=== PATIENT | female | born 1950 | race Caucasian/White ===

== ENCOUNTER 2017-10-22 17:36 | Inpatient (IN) | payer OTHER ==
[~2017-10-22] VITALS: Ht 157.5 cm; Wt 128.7 kg
--- NOTE | ~2017-10-22 | 2DMMODE ---
[facility] [address] [place] [address] 2 D/M-MODE ECHOCARDIOGRAM Name: SAMIGURDEEP Room #: 212-P [facility] IN M.R.#: [id number] Admission: 10/22/17 Attend Phys: Leonard Ramirez MD Discharge: Date of : 52 Date of Service: 10/23/17 0918 Report #: [id number] THIS REPORT FOR: //name// APPROVED REPORT Study performed: 10/23/2017 08:22:33 EXAM: Comprehensive 2D, Doppler, and color-flow Echocardiogram Patient Location: Echo lab Room #: [facility] Status: routine BSA: 2.22 HR: 70 bpm BP: 134/53 mmHg Rhythm: NSR Other Information Study Quality: Adequate Indications SVT. Hx: Pacemaker, COPD, HTN. 2D Dimensions RVDd: 33.07 mm LVEF(%): 64.43 (>50%) IVSd: 12.38 (7-11mm) LVOT Diam: 19.63 (18-24mm) LVDd: 45.12 mm PWd: 11.07 (7-11mm) LVDs: 29.32 (25-40mm) Aortic Root: 31.93 mm Sawyer's LVEF: 64.43 % Volumes Left Atrial Volume (Systole) Single Plane 4CH: 86.04 mL Single Plane 2CH: 86.51 mL LA ESV Index: 41.00 mL/m2 Aortic Valve AoV Peak Nir.: 1.69 m/s AO Peak Gr.: 11.42 mmHg LVOT Max P.29 mmHg LVOT Max V: 1.04 m/s JEFRY Vmax: 1.85 cm2 Mitral Valve E/A Ratio: 1.9 MV Decel. Time: 184.58 ms [facility] [address] [place] [address] 2 D/M-MODE ECHOCARDIOGRAM Name: GURDEEP GALLARDO Room #: [address] [place] [address] IN .R.#: [id number] Admission: 10/22/17 Attend Phys: Leonard Ramirez MD Discharge: Date of : 52 Date of Service: 10/23/17 0918 Report #: [id number] E Max Nir.: 1.13 m/s MV A Nir.: 0.58 m/s MV PHT: 53.53 ms IVRT: 69.20 ms Pulmonary Vein P Vein S: 0.53 m/s P Vein D: 0.79 m/s P Vein S/D Ratio: 0.67 Tricuspid Valve TR Peak Nir.: 3.11 m/s RAP Estimate: 10.00 mmHg TR Peak Gr.: 38.77 mmHg PA Pressure: 49.00 mmHg Left Ventricle The left ventricle is normal size. Mild basal septal hypertrophy is present. Left ventricular systolic function is normal. LVEF is 55-60%. Right Ventricle The right ventricle is normal size. The right ventricular systolic function is normal. Pacemaker lead is present in the right ventricle. Atria Left atrium is mild to moderately dilated. The right atrium size is normal. Aortic Valve Aortic valve is calcified. No aortic regurgitation is present. There is no aortic valvular stenosis. Mitral Valve Mitral valve leaflets are mildly thickened. Mild mitral annular calcification. Mild mitral regurgitation. Tricuspid Valve The tricuspid valve is normal in structure. Mild tricuspid regurgitation. Estimated PAP is 50mmHg. Pulmonic Valve Pulmonic valve is not well visualized. Great Vessels The aortic root is normal in size. IVC is dilated and collapses >50% with inspiration. [facility] [address] [place] [address] 2 D/M-MODE ECHOCARDIOGRAM Name: GURDEEP GALLARDO ZACHARY Room #: 212-P [facility] IN ..#: [id number] Admission: 10/22/17 Attend Phys: Leonard Ramirez MD Discharge: Date of : 52 Date of Service: 10/23/17 0918 Report #: [id number] Pericardium There is no pericardial effusion. <Conclusion> The left ventricle is normal size. Mild basal septal hypertrophy is present. LVEF is 55-60%. The right ventricle is normal size. Left atrium is mild to moderately dilated. Aortic valve is calcified. There is no aortic valvular stenosis. Mitral valve leaflets are mildly thickened. Mild mitral annular calcification. Mild mitral regurgitation. Mild tricuspid regurgitation. Estimated PAP is 50mmHg. IVC is dilated and collapses >50% with inspiration. There is no pericardial effusion. <ELECTRONICALLY SIGNED> By: Jose G Deleon MD, FACC 10/23/17917 7 7 Jose G Deleon MD, FACC /INF
--- NOTE | ~2017-10-22 | EKG ---
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
--- NOTE | ~2017-10-22 | EKG ---
[address] [place] [address] ELECTROCARDIOGRAM REPORT Name: SAMIGURDEEPPORTER SHARMA Room #: 212-P [facility] IN .R.#: [id number] Admission: 10/22/17 Attend Phys: Leonard Ramirez MD Discharge: Date of : 52 Report #: [id number] THIS REPORT FOR: //name// [facility] Test Date: 2017-10-23 Test Time: 08:25:18 Pat Name: GURDEEP GALLARDO Department: Room: 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 Maker: WESLEY : 1950 Requested By: Denisa Menjivar Order Number: [id number] MD: Omari Bryant Measurements Intervals [place] Rate: 70 P: DE: 200 QRS: 39 QRSD: 104 T: 38 QT: 537 QTc: 580 Interpretive Statements Atrial-paced complexes Borderline T wave abnormalities Prolonged QT interval No previous ECG available for comparison Electronically Signed On 10-23-2017 8:56:10 CDT by Omari Bryant [email or web address] <ELECTRONICALLY SIGNED> By: Omari Bryant MD, [facility] 10/23/17 0856 0825 4 Omari Bryant MD, FACC /EPI
--- NOTE | ~2017-10-22 | HC ---
[facility] [place] [address] CONSULTATION Name: GURDEEP GALLARDO Room #: 212-P ADM IN M.R.#: [id number] Admission: 10/22/17 Attend Phys: Leonard Ramirez MD Discharge: Date of : 52 Report #: [id number] THIS REPORT FOR: //name// CC: XOCHITL physician/PCP Leonard Ramirez DATE OF SERVICE: 10/22/2017 Cardiology Consultation HISTORY OF PRESENT ILLNESS: The patient is a 67-year-old female who moved here from [place] a year ago. She had a pacemaker placed for bradycardia, sick sinus syndrome in 2005. I do not have those records, saw a mems engineer once at [facility] regarding this pacemaker, but does not know the last time she was seen. She cannot live with her son. She is a recovered alcoholic and tobacco user. No tobacco or alcohol for 1 year, but otherwise lifelong alcohol and tobacco for 40 pack years. She came in with some increasing stress and does have some tachycardia, racing heart, dyspnea and shortness of breath. She has underlying COPD, which certainly may be exacerbating. She was found to be in SVT with a rate 170s to 180s according to the ER. I do not see the strips. Responded to adenosine times 2, then 5 of IV Lopressor. Her pulse is currently 70s, appears to be regular. It is not paced at this time. She has apparently been on these medications of ranitidine, Xarelto, which I suspect is for some paroxysmal a-fib, although she is not completely clear why she is on Xarelto, oxybutynin, lisinopril, levothyroxine, and divalproex. PAST MEDICAL HISTORY: Positive for what appears to be hypothyroid with an elevated TSH, hypertension, sick sinus syndrome with what I suspect is underlying atrial dysrhythmia, possibly PAF, although I do not have any of the old records available from [place] or [place], COPD with long history of tobacco and a lifelong alcoholic who is dry now for 1 year. Bradycardia and permanent pacemaker placed in 2005 and generator replaced in 2011. History of gastric bypass. SOCIAL HISTORY: She is single, 3 children in [place], 1 here who she lives with. They are supposedly are helping take care of her. She does not drive. No current alcohol or tobacco. FAMILY HISTORY: Negative for premature coronary disease. ALLERGIES: No known drug allergies. One report from EMS looks to be atrial flutter with a rate of 115 to 120. LABORATORY DATA: Potassium 3.9, creatinine 0.9, GFR 63. Glucose 140. Troponin is negative. H and H are 13 and 38.7, white count 4.4. [facility] [address] [place] [address] CONSULTATION Name: SABAS GALLARDOPORTER SHARMA Room #: 212-P [facility] IN M.R.#: [id number] Admission: 10/22/17 Attend Phys: Leonard Ramirez MD Discharge: Date of : 52 Report #: [id number] IMAGING DATA: Chest x-ray: Small bilateral pleural effusions with some atelectasis. PHYSICAL EXAMINATION: VITAL SIGNS: Pulse is 70s, blood pressure is 118/72. GENERAL: She is in no distress. HEENT: Eyes reveal xanthelasmas. Pharynx is clear. NECK: Shows preserved upstrokes without JVD or bruits. LUNGS: Clear. CARDIAC: Regular rate and rhythm, S1, S2. There is a faint holosystolic murmur at the apex. ABDOMEN: Soft. No HSM or abdominal bruit. EXTREMITIES: Reveal trace of edema, nonpitting. NEUROLOGIC: Nonfocal. SKIN: Warm and dry. There are venous stasis changes noted of lower extremities. MUSCULOSKELETAL: Severe valgus deformity of the knees and a varus deformity of the ankle from a repair. She does not really ambulate without an assistive device. There are no open wounds. ASSESSMENT: 1. Paroxysmal atrial flutter/supraventricular tachycardia, currently in sinus rhythm. 2. History of sick sinus and the permanent pacemaker placed in 2005. 3. Hypertension. 4. Hypothyroidism with elevated TSH. 5. Degenerative joint disease with severe lower extremity valgus deformity. 6. History of gastric bypass. RECOMMENDATIONS AND PLAN: We would on no AV node inhibiting drugs, which is somewhat surprising. We would continue her anticoagulation. I will check an echo Doppler and an EKG in the morning. We will add 50 of p.o. Toprol. Looking for any recurrence of this dysrhythmia on the monitor tonight, if these findings are relatively unremarkable and rate controlled, I would presumably favor discharge prior to the weekend. I have discussed this plan with the patient. She does agree with this. We will follow with you. Thank you for asking me to assist in the care of this patient. By: 2054 0530 Jose G Deleon MD, FACC /nt
--- NOTE | ~2017-10-22 | EKG ---
[address] [place] [address] ELECTROCARDIOGRAM REPORT Name: SAMIGURDEEP ZACHARY Room #: 212- ADM IN M.R.#: [id number] Admission: 10/22/17 Attend Phys: Leonard Ramirez MD Discharge: Date of : 52 Report #: [id number] THIS REPORT FOR: //name// [facility] Test Date: 2017-10-22 Test Time: 21:39:12 Pat Name: GURDEEP GALLARDO Department: Room: 212 Gender: F Pharmacogeneticist: Reji SAUNDERS : 1950 Requested By: Jose G Deleon Order Number: [id number] MD: Omari Bryant Measurements Intervals [place] Rate: 70 P: NC: QRS: 33 QRSD: 95 T: 68 QT: 382 QTc: 413 Interpretive Statements Sinus rhythm with atrial pacing Otherwise normal tracing No previous ECG available for comparison Electronically Signed On 10-23-2017 8:37:56 CDT by Omari Bryant [email or web address] <ELECTRONICALLY SIGNED> By: Omari Bryant MD, [facility] 10/23/17 0837 2139 Omari Bryant MD, FACC /EPI
--- NOTE | ~2017-10-22 | EKG ---
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: [facility] : 1950 Requested By: Drew Brothers Order Number: [id number] MD: Omari Bryant Measurements Intervals [place] Rate: 115 P: MD: QRS: 22 QRSD: 93 T: 153 QT: 289 QTc: 400 Interpretive Statements Atrial flutter with predominant 2:1 AV block Ventricular premature complex Nonspecific repol abnormality, diffuse leads Baseline wander in lead(s) V5 No previous ECG available for comparison Electronically Signed On 10-23-2017 8:32:51 CDT by Omari Bryant [email or web address] <ELECTRONICALLY SIGNED> By: Omari Bryant MD, [facility] 10/23/17 0832 1738 1738 Omari Bryant MD, [facility] /EPI
[2017-10-22 18:02] LABS: ABSOLUTE NEUTROPHILS 2.4 thou/uL (1.4-8.2); BASOPHILS 1.2 % (0.0-2.0); EOSINOPHILS 0.7 % (0.0-3.0); HEMATOCRIT 38.7 % (37.0-47.0); HEMOGLOBIN 13.3 gm/dL (12.0-15.0); LYMPHOCYTES 34.9 % (24.0-44.0); MCH 32.9 pg (26.0-34.0); MCHC 34.3 g/dL (28.0-37.0); MCV 95.8 fL (80.0-100.0); MONOCYTES 9.7 % (1.0-8.0); PLATELET COUNT 171 thou/uL (150-400); POLYS 53.5 % (36.0-66.0); RBC 4.03 mil/uL (4.20-5.00); RDW 14.3 % (10.5-14.5); WBC 4.4 thou/uL (4.0-11.0)
[2017-10-22 18:09] LABS: ANION GAP 10 mmol/L (7-16); BUN 22 mg/dL (7-18); CALCIUM 8.6 mg/dL (8.5-10.1); CHLORIDE 106 mmol/L (98-107); CO2 24 mmol/L (21-32); CREATININE 0.9 mg/dL (0.6-1.0); GLUCOSE 141 mg/dL (74-106); POTASSIUM 3.9 mmol/L (3.5-5.1); SODIUM 140 mmol/L (136-145)
[2017-10-22 18:18] LABS: ALBUMIN 3.3 g/dL (3.4-5.0); SGOT 20 U/L (15-37); SGPT 15 U/L (30-65); TOTAL BILIRUBIN 0.2 mg/dL (<0.1-1.0); TOTAL PROTEIN 7.7 g/dL (6.4-8.2); TROPONIN-I <0.06 ng/mL (<0.06)
[2017-10-22 18:23] LABS: INR 1.1; PROTIME 11.2 Seconds (9.3-11.4)
[2017-10-22] MEDS ORDERED: RANITIDINE (20:07)
[2017-10-22] MEDS ORDERED: XARELTO (20:08)
[2017-10-22] MEDS ORDERED: LISINOPRIL (20:08)
[2017-10-22] MEDS ORDERED: LEVOTHYROXINE (20:08)
[2017-10-22] MEDS ORDERED: OXYBUTININ (20:08)
[2017-10-22] MEDS ORDERED: DIVALPROEX (20:08)
[2017-10-22 20:12] VITALS: BP 132/70
[2017-10-22 20:14] VITALS: BP 132/70
[2017-10-22 20:30] VITALS: BP 125/65
[2017-10-22 20:44] VITALS: BP 125/65
[2017-10-22 23:41] VITALS: BP 130/71
[2017-10-23] VITALS (9 sets, daily range): BP systolic 128–145; BP diastolic 53–85
[2017-10-23 04:56] LABS: CALCIUM 8.1 mg/dL (8.5-10.1); CREATININE 0.7 mg/dL (0.6-1.0); MAGNESIUM 2.2 mg/dL (1.8-2.4); POTASSIUM 3.8 mmol/L (3.5-5.1)
[2017-10-23] MEDS ORDERED: XARELTO20 MG PO (05:57)
[2017-10-23] MEDS ORDERED: DEPAKOTE ER500 MG PO (05:58)
[2017-10-23] MEDS ORDERED: SYNTHROID200 MCG PO (05:59)
[2017-10-23] MEDS ORDERED: FOSAMAX 70 MG T70 MG PO (06:00)
[2017-10-23 06:06] LABS: ABSOLUTE NEUTROPHILS 1.5 thou/uL (1.4-8.2); BASOPHILS 0.8 % (0.0-2.0); EOSINOPHILS 0.8 % (0.0-3.0); HEMATOCRIT 33.8 % (37.0-47.0); HEMOGLOBIN 11.4 gm/dL (12.0-15.0); LYMPHOCYTES 47.2 % (24.0-44.0); MCH 32.9 pg (26.0-34.0); MCHC 33.8 g/dL (28.0-37.0); MCV 97.1 fL (80.0-100.0); MONOCYTES 9.1 % (1.0-8.0); PLATELET COUNT 145 thou/uL (150-400); POLYS 42.1 % (36.0-66.0); RBC 3.48 mil/uL (4.20-5.00); RDW 14.3 % (10.5-14.5); WBC 3.5 thou/uL (4.0-11.0)
[2017-10-23] MEDS ORDERED: METOPROLOL SUCC50 MG PO (13:52)
[2017-10-23] MEDS ORDERED: DEMADEX 2020 MG/1 TA PO (13:52)
== END 2017-10-23 16:02 | disposition home health service (06) | DRG 309 ==
LOC: ER 17:36 → 2N 19:38 → EROBS 19:38 → 2N 20:28 → ENTRNSPT 10-23 15:46 → EDTRNSPTSTS 10-23 15:50 → 2N 10-23 16:02
PROVIDERS: Nurse Practitioner; Physician Assistant
DX: I47.1 Supraventricular tachycardia (principal); Z68.43 Body mass index [BMI] 50.0-59.9, adult; I48.92 Unspecified atrial flutter; I48.91 Unspecified atrial fibrillation; J44.9 Chronic obstructive pulmonary disease, unspecified; E03.9 Hypothyroidism, unspecified; I10 Essential (primary) hypertension; I49.5 Sick sinus syndrome; Z95.0 Presence of cardiac pacemaker; M19.90 Unspecified osteoarthritis, unspecified site; M21.00 Valgus deformity, not elsewhere classified, unspecified site; E87.6 Hypokalemia; E83.42 Hypomagnesemia; F31.9 Bipolar disorder, unspecified; Z79.899 Other long term (current) drug therapy; Z98.84 Bariatric surgery status; E66.9 Obesity, unspecified
CPT/HCPCS: 10081

== ENCOUNTER 2018-09-06 18:44 | Inpatient (IN) | payer OTHER ==
[~2018-09-06] VITALS: Ht 165.1 cm; Wt 122.5 kg
[~2018-09-06 18:44] MED LIST: DEMADEX 2020 MG/1 TA PO; DEPAKOTE ER500 MG PO; DIVALPROEX; FOSAMAX 70 MG T70 MG PO; LEVOTHYROXINE; LISINOPRIL; METOPROLOL SUCC50 MG PO; OXYBUTININ; RANITIDINE; SYNTHROID200 MCG PO; XARELTO; XARELTO20 MG PO
[2018-09-06 18:48] VITALS: BP 106/58
[2018-09-06 19:10] LABS: HEMATOCRIT 47.9 % (37.0-47.0); HEMOGLOBIN 15.3 gm/dL (12.0-15.0); MCH 32.9 pg (26.0-34.0); MCV 102.8 fL (80.0-100.0); PLATELET COUNT 116 thou/uL (150-400); RBC 4.65 mil/uL (4.20-5.00); RDW 18.2 % (10.5-14.5); WBC 4.2 thou/uL (4.0-11.0)
[2018-09-06] MEDS ORDERED: XARELTO20 MG PO (19:15)
[2018-09-06] MEDS ORDERED: CALCIUM MAGNES1 EAC2 PO (19:16)
[2018-09-06 19:17] LABS: CALCIUM 8.7 mg/dL (8.5-10.1); CREATININE 1.6 mg/dL (0.6-1.0); POTASSIUM 4.9 mmol/L (3.5-5.1)
[2018-09-06] MEDS ORDERED: MULTIPLE VITAM1 EAC2 PO (19:17)
[2018-09-06] MEDS ORDERED: DEPAKOTE ER250 MG PO (19:19)
[2018-09-06] MEDS ORDERED: LOPRESSOR50 PO (19:20)
[2018-09-06] MEDS ORDERED: LISINOPRIL10 MG PO (19:22)
[2018-09-06] MEDS ORDERED: OXYBUTYNIN 5 MG5 M2 PO (19:23)
[2018-09-06] MEDS ORDERED: LASIX 20 MG TAB20 MG PO ×2 (19:25→19:26)
[2018-09-06] MEDS ORDERED: ZANTAC 150MG T150 MG PO (19:25)
[2018-09-06 19:26] LABS: TROPONIN-I 0.13 ng/mL (<0.06)
[2018-09-06] MEDS ORDERED: DEMADEX20 MG PO (19:26)
[2018-09-06] MEDS ORDERED: FLONASE 0.05%50 MCG NASAL (19:27)
[2018-09-06 19:35] LABS: BE(vivo) -3.8 mmol/L (-2 to +3); HCO3 27.5 mmol/L (22.0-26.0); sO2 97.9 % (92.0-98.0)
[2018-09-06 19:36] LABS: pH 7.144 (7.360-7.450)
[2018-09-06 19:43] LABS: ABSOLUTE NEUTROPHILS 2.9 thou/uL (1.4-8.2); NUCLEATED RBCS 1 /100WBC
[2018-09-06 19:44] LABS: ANISOCYTOSIS 1+; MACROCYTES 1+; POLYCHROMASIA OCCASIONAL
[2018-09-06 21:50] LABS: BE(vivo) -1.3 mmol/L (-2 to +3); PO2 72.3 mmHg (80.0-100.0); sO2 91.3 % (92.0-98.0)
[2018-09-06 21:50] LABS: ICTOTEST (BILI CONFIRMATORY) Negative (Negative); URINE BILIRUBIN NEGATIVE (Negative); URINE BLOOD 1+ (Negative); URINE CLARITY CLEAR; URINE COLOR YELLOW; URINE GLUCOSE-RANDOM* NEGATIVE (Negative); URINE KETONES TRACE (Negative); URINE LEUKOCYTES-REFLEX TRACE (Negative); URINE NITRITE-REFLEX POSITIVE (Negative); URINE PROTEIN (DIPSTICK) 2+ (Negative); URINE SPECIFIC GRAVITY >= 1.030 (1.005-1.035)
[2018-09-06 21:51] LABS: PCO2 67.5 mmHg (35.0-45.0); pH 7.236 (7.360-7.450)
[2018-09-06 22:00] LABS: BACTERIA-REFLEX >30 Many /HPF (None Seen); HYALINE CASTS 4-10 Moderate /LPF (None Seen); MUCUS 0-3 Light strn/LPF (None Seen); SQUAMOUS 0-3 Few /LPF (0-3); URINE RBC 3-10 Few /HPF (0-2); URINE WBC-REFLEX 0-5 Rare /HPF (0-5)
[2018-09-07 01:46] LABS: BE(vivo) 0.5 mmol/L (-2 to +3); HCO3 30.2 mmol/L (22.0-26.0); PO2 101.9 mmHg (80.0-100.0); sO2 96.4 % (92.0-98.0)
[2018-09-07 01:47] LABS: PCO2 73.5 mmHg (35.0-45.0); pH 7.232 (7.360-7.450)
[2018-09-07 04:55] LABS: HEMATOCRIT 45.1 % (37.0-47.0); HEMOGLOBIN 14.3 gm/dL (12.0-15.0); MCH 32.3 pg (26.0-34.0); MCHC 31.6 g/dL (28.0-37.0); MCV 102.3 fL (80.0-100.0); RBC 4.41 mil/uL (4.20-5.00); RDW 17.7 % (10.5-14.5); WBC 3.8 thou/uL (4.0-11.0)
[2018-09-07 05:11] LABS: CALCIUM 8.1 mg/dL (8.5-10.1); CREATININE 1.2 mg/dL (0.6-1.0); POTASSIUM 5.1 mmol/L (3.5-5.1)
--- NOTE | 2018-09-07 07:39 | EKG ---
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 ��������������������������������������������� <ELECTRONICALLY SIGNED> ���������������������������������������� By: Omari Bryant MD, [facility] ��������������������������������������������� 09/07/18 0739 185 55 Omari Bryant MD, [facility] /EPI
--- NOTE | 2018-09-07 09:44 | NUR ---
IV team contacted for central line placement at this time. Consent form signed and witnessed.
[2018-09-07 10:47] VITALS: BP 98/62
[2018-09-07 11:34] VITALS: BP 112/65
[2018-09-07 12:10] VITALS: BP 116/65
--- NOTE | 2018-09-07 13:21 | NUR ---
VASCULAR ACCESS CONSULTED FOR PICC LINE PLACEMENT ORDER VERIFIED AND TIMEOUT COMPLETED AT BEDSIDE. LABS,MEDS,HX OBTAINED. 1% LIDOCAINE ADMINISTERED RIGHT BRACHIAL VEIN CANNULATED WITH ONE STICK. 5FR TL PICC LINE TRIMMED TO 39CM. 2CM EXTERNAL. LINE PLACED WITH U.S GUIDANCE AND UNDER STERILE CONDITIONS. CXR OBTAINED SHOWING LINE UP RIGHT JUGULAR. ATTEMPTED RE-POSITION WITH NO RESOLUTION. PATIENT WAS IN THE PROCESS OF BEING TRANSFERED FROM THE ER TO CCU. PATIENT SEEN AGAIN IN CCU FOR OVER THE WIRE EXCHANGE. 4FR DL PICC PLACED WITH OVER THE WIRE TECHNIQUE AND STERILE CONDITIONS. LINE TRIMMED TO 39CM WITH 0CM EXTERNAL. CXR READ OUT SHOWS LINE AT THE CAJ. LINE RELEASED FOR USE TO SANJANA DIAMOND
[2018-09-07 17:42] LABS: FOLIC ACID 19.5 ng/mL (8.6-58.9)
[2018-09-07 18:08] VITALS: BP 91/67
--- NOTE | 2018-09-07 18:48 | NUR ---
PATIENT ARRIVED FROM ED VIA STRECHER, ALERT AND ORIENTED TO SELF AND SITUATION. CONFUSED TO TIME AND PLACE. BIPAP INPLACE, ADMISION IS DONE AND NEW CARRE PLAN INITIATED AND WILL CONTINUE TO MONITOR PATIENT CLOSELY.
[2018-09-07 19:37] VITALS: BP 96/63
[2018-09-07 23:54] VITALS: BP 99/59
[2018-09-08 04:53] LABS: ALBUMIN 2.6 g/dL (3.4-5.0); CALCIUM 7.8 mg/dL (8.5-10.1); CREATININE 1.2 mg/dL (0.6-1.0); MAGNESIUM 1.9 mg/dL (1.8-2.4); TOTAL BILIRUBIN 0.9 mg/dL (<0.1-1.0); TOTAL PROTEIN 6.2 g/dL (6.4-8.2)
[2018-09-08 04:57] VITALS: BP 98/71
[2018-09-08 04:58] LABS: POTASSIUM 4.9 mmol/L (3.5-5.1)
[2018-09-08 05:12] LABS: HEMATOCRIT 39.4 % (37.0-47.0); HEMOGLOBIN 12.9 gm/dL (12.0-15.0); MCH 32.6 pg (26.0-34.0); MCHC 32.6 g/dL (28.0-37.0); MCV 99.8 fL (80.0-100.0); PLATELET COUNT 94 thou/uL (150-400); RBC 3.95 mil/uL (4.20-5.00); RDW 16.8 % (10.5-14.5); WBC 2.8 thou/uL (4.0-11.0)
--- NOTE | 2018-09-08 06:00 | NUR ---
A/O X 3.DENIES PAIN.Q2 TURNS.ON BIPAP.SPO2 WNL.ON AMIODARONE GTT PER ORDER.PULMONARY CALLED TO ANSWERING SERVIE.NO RESPIRATORY DISTRESS NOTED.MONITOR SHOWS AFIB.LILLIAN TO DD.WILL MONITOR AND CONTINUE POC.
[2018-09-08 08:03] VITALS: BP 95/56
[2018-09-08 08:06] LABS: ABSOLUTE NEUTROPHILS 2.4 thou/uL (1.4-8.2); ANISOCYTOSIS 1+
--- NOTE | 2018-09-08 08:39 | EKG ---
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 : 1950 Requested By: Jazmin Bustos Order Number: [id number] MD: Omari Bryant Measurements Intervals [place] Rate: 119 P: MD: QRS: 21 QRSD: 69 T: QT: 379 QTc: 534 Interpretive Statements Atrial fibrillation Low voltage Nonspecific ST and T wave abnormality Prolonged QT interval Compared to ECG 09/06/2018 18:56:29 Heart rate has slowed Electronically Signed On 09-08-2018 8:39:23 CDT by Omari Bryant [email or web address] ��������������������������������������������� <ELECTRONICALLY SIGNED> ���������������������������������������� By: Omari Bryant MD, [facility] ��������������������������������������������� 09/08/1839 7 7 Omari Bryant MD, [facility] /EPI
[2018-09-08 10:41] LABS: BE(vivo) 3.8 mmol/L (-2 to +3); HCO3 30.4 mmol/L (22.0-26.0); PCO2 54.1 mmHg (35.0-45.0); PO2 72.3 mmHg (80.0-100.0); pH 7.367 (7.360-7.450); sO2 93.8 % (92.0-98.0)
[2018-09-08 12:51] VITALS: BP 99/64
--- NOTE | 2018-09-08 13:22 | 2DMMODE ---
[facility] [place] [address] 2 D/M-MODE ECHOCARDIOGRAM Name: GURDEEP GALLARDO Room #: 219-P ADM IN M.R.#: [id number] ������������� Admission: 09/06/18 ������������� Attend Phys: Ozzie Nguyen, Discharge: ��� ������������� ��� Date of : 52 Date of Service: 09/08/18 1321 �� Report #: [id number] �������� ��������������������������������������������[id number] THIS REPORT FOR: //name// APPROVED REPORT Study performed: 09/08/2018 11:22:33 EXAM: Comprehensive 2D, Doppler, and color-flow Echocardiogram Patient Location: Bedside Room #: 219 Status: routine BSA: 2.25 BP: 116/65 mmHg Rhythm: Atrial Fibrillation Other Information Study Quality: Good Indications Dyspnea Hx: PPM, Afib, COPD, HTN. 2D Dimensions RVDd: 42.60 mm IVSd: 9.13 (7-11mm) LVOT Diam: 20.92 (18-24mm) LVDd: 43.90 mm PWd: 9.20 (7-11mm) Ascending Ao: 34.30 (22-36mm) LVDs: 28.53 (25-40mm) Aortic Root: 33.46 mm Volumes Left Atrial Volume (Systole) Single Plane 4CH: 73.21 mL Single Plane 2CH: 67.51 mL Aortic Valve AoV Peak Nir.: 1.72 m/s AO Peak Gr.: 12.98 mmHg LVOT Max P.97 mmHg LVOT Max V: 0.86 m/s JEFRY Vmax: 1.72 cm2 Mitral Valve MV Decel. Time: 126.44 ms MV E Max Nir.: 1.06 m/s [facility] [address] [place] [address] 2 D/M-MODE ECHOCARDIOGRAM Name: GURDEEP GALLARDOHERINE Room #: 219-[facility] IN [facility]#: [id number] ������������� Admission: 09/06/18 ������������� Attend Phys: Ozzie Nguyen, Discharge: ��� ������������� ��� Date of : 52 Date of Service: 09/08/18 1321 �� Report #: [id number] �������� ��������������������������������������������[id number] Pulmonary Valve PV Peak Nir.: 0.78 m/s PV Peak Gr.: 2.59 mmHg Tricuspid Valve TR Peak Nir.: 3.10 m/s RAP Estimate: 15.00 mmHg TR Peak Gr.: 39.00 mmHg Left Ventricle The left ventricle is normal size. There is normal LV segmental wall motion. There is normal left ventricular wall thickness. Left ventricular systolic function is normal. LVEF is 55-60%. This study is not technically sufficient to allow evaluation of the LV diastolic function due to atrial fibrillation. Right Ventricle Right ventricle is mildly dilated. The right ventricular systolic function is normal. Atria Left atrium is moderately dilated. Right atrium is moderately dilated. Aortic Valve Aortic valve is moderately calcified. No aortic regurgitation is present. There is mild valvular aortic stenosis. Calculated aortic valve area is 1.7 cm2 with maximum pressure gradient of 12 mmHg. Mitral Valve The mitral valve is normal in structure. Mild mitral annular calcification. Mild mitral regurgitation. No evidence of mitral valve stenosis. Tricuspid Valve The tricuspid valve is normal in structure. Mild to moderate tricuspid regurgitation. Estimated PAP of 50-55mmHg. Pulmonic Valve Pulmonic valve is not well visualized. There is no pulmonic valvular regurgitation. Great Vessels The aortic root is normal in size. The ascending aorta is normal in size. IVC is dilated and collapses <50% with inspiration. [facility] [address] [place] [address] 2 D/M-MODE ECHOCARDIOGRAM Name: SAMIGURDEEPPORTER SHARMA Room #: 219-P [facility] IN .R.#: [id number] ������������� Admission: 09/06/18 ������������� Attend Phys: Ozzie Nguyen, Discharge: ��� ������������� ��� Date of : 52 Date of Service: 09/08/18 1321 �� Report #: [id number] �������� ��������������������������������������������[id number] Pericardium Trivial to small anterior pericardial effusion. <Conclusion> The left ventricle is normal size. LVEF is 55-60%. Right ventricle is mildly dilated. Left atrium is moderately dilated. Right atrium is moderately dilated. Aortic valve is moderately calcified. There is mild valvular aortic stenosis. Calculated aortic valve area is 1.7 cm2 with maximum pressure gradient of 12 mmHg. The mitral valve is normal in structure. Mild mitral annular calcification. Mild mitral regurgitation. The tricuspid valve is normal in structure. Mild to moderate tricuspid regurgitation. Estimated PAP of 50-55mmHg. Trivial to small anterior pericardial effusion. ��������������������������������������������� <ELECTRONICALLY SIGNED> ���������������������������������������� By: Grant Perez MD ��������������������������������������������� 09/08/181320 20 20 Grant Perez MD /INF
--- NOTE | 2018-09-08 14:33 | NUR ---
met with patient and sp with son. Patient resides in independent home with son, dtr in law, 11, 8 year old children. Patient reports at home she is able get out of bed and use walker to her lift chair but it takes her time to complete. She has no home oxygen or cpap/bipap machine. She uses a nebulizer 4x a day. She is alone at times in home. She reports her son works 12 hour shifts and very busy. She believes they need more help at home. She rec HH from [facility] in past but she reports they stopped after a week. Patient reports she has a lift chair at home and BSC. She uses briefs. Son reports his car is too little for patient and she has needed to take an ambulance to [place] bolden. Son does not know who patients PCP. He reports when she has tried to go to [place] with his car it takes her such a long time to walk to car she urinates herself and then does not want to go to apt. Son is agreeable to rehab for his mother if needed. Therapy evals in process.
[2018-09-08 20:55] VITALS: BP 108/62
[2018-09-09 04:58] VITALS: BP 110/60
--- NOTE | 2018-09-09 05:25 | NUR ---
ASSUMED PT CARE AT 1900 WITH NO SIGN OF DISTRESS NOTED. PT IS ALERT AND ORIENTED WITH NO SIGN OF DISTRESS NOTED IN PT. ASSESSMENT COMPLETED AND CHARTED. SCHEDULED MEDS ADMINISTERED TO PT AND PT TOLERATED PO INTAKE. PT IS STABLE. DENIES ANY FURTHER NEEDS AT THIS TIME
[2018-09-09 06:07] LABS: HEMATOCRIT 38.1 % (37.0-47.0); HEMOGLOBIN 12.6 gm/dL (12.0-15.0); MCH 32.7 pg (26.0-34.0); MCHC 33.1 g/dL (28.0-37.0); MCV 98.8 fL (80.0-100.0); RBC 3.85 mil/uL (4.20-5.00); RDW 17.1 % (10.5-14.5); WBC 3.5 thou/uL (4.0-11.0)
[2018-09-09 06:15] LABS: CALCIUM 8.1 mg/dL (8.5-10.1); POTASSIUM 4.4 mmol/L (3.5-5.1)
[2018-09-09 08:05] VITALS: BP 106/71
[2018-09-09 11:00] VITALS: BP 113/72
--- NOTE | 2018-09-09 15:39 | NUR ---
Dc planning visit made with pt at bedside and her son via phone. The pt is interested in SNF and she is familiar with this from a snf stay in [place] several years ago. She would like to have a referral sent to [facility] as it is close to their home. Pt's spouse is agreeable and would like her as close to the home as possible. The pt is motivated and wants to get stronger. She would like to improve her transfers and gait within the home and make it easier to get out of the house to appts. She needs to establish a pcp and is interested in the sr clinic. [facility] of [facility] contacted. They will have a snf bed available tomorrow if the pt is ready. Dc buyer planner to fax the referral for their reveiw. Pt will need to continue weaning off o2. Will followup with all parties tomorrow and arrange for dc to snf as indicated.
[2018-09-09 16:00] VITALS: BP 91/67
--- NOTE | 2018-09-09 16:08 | NUR ---
FAXED REFERRAL TO [facility] SPOKE WITH GWEN SHE RECEIVED REFERRAL AND WILL REVIEW. ANTICIPATE DC TOMORROW 09/10. DCP TO FOLLOW.
--- NOTE | 2018-09-09 16:44 | NUR ---
ASSESSMENT CHARTED - MEDS PER MAR - NO CO'S OF PAIN OR NASUEA - KAELYN DIET AND FLUIDS. PT SEEN BY PHYS AND OCC THERAPY THIS SHIFT. PT INCONTINENT OF LARGE LIQUID STOOL THIS AM. - STATED SHE FEELS IT IS THE ANTIBIOTICS THAT ARE CAUSING HER TO STOOL. PT UP IN CHAIR FOR A SHAORT AMOUNT OF TIME. NO CO'S AT THE PRESENT TIME.
[2018-09-09 19:00] VITALS: BP 109/68
--- NOTE | 2018-09-09 19:44 | HC ---
[facility] [place] [address] CONSULTATION Name: GURDEEP GALLARDO Room #: 219-P ADM IN M.R.#: [id number] Admission: 09/06/18 ������������������ Attend Phys: Ozzie Nguyen DO Discharge: ������������������ Date of : 52 Report #: [id number] THIS REPORT FOR: //name// CC: [facility] physician/PCP Ozzie Nguyen PULMONARY CONSULTATION REFERRAL PHYSICIAN: Ozzie Nguyen DO. REASON FOR REFERRAL: Respiratory failure. HISTORY OF PRESENT ILLNESS: The patient is a 68-year-old white female who presents to the ED with complaints of weakness. She was found to be hypoxic. A Pulmonary consultation was requested. The patient is a fair historian. She has had trouble with memory loss. According to records, she has a history of atrial fibrillation; sick sinus syndrome, status post permanent pacemaker placement; hypertension; hypothyroidism and gastroesophageal reflux disease. She also has a history of COPD. Overnight, she has been placed on BiPAP. She is much improved today. She denies any dyspnea, chest pain or productive cough. CT chest angiogram showed no evidence of pulmonary embolus, with patchy bilateral linear infiltrates that were seen in both bases. The patient, otherwise, denies any fever, night sweats or chills, as mentioned above. PAST MEDICAL HISTORY: As mentioned above, including history of bipolar disorder; hypothyroidism; sick sinus syndrome, status post permanent pacemaker placement and atrial fibrillation along with history of chronic obstructive pulmonary disease. PAST SURGICAL HISTORY: Include right hip surgery, left foot surgery, tonsillectomy, surgery for lazy right eye, herniorrhaphy, gastric sleeve surgery and bilateral tubal ligation. ALLERGIES: None to medications. MEDICATIONS: Home medications are reviewed. This include Synthroid 200 mcg once a day, Xarelto 20 mg once a day, multivitamins, Depakote ER 1000 mg p.o. at bedtime, Lopressor 50 mg p.o. b.i.d., Zestril 10 mg p.o. every day, Zantac 150 mg once a day, Lasix 20 mg once a day, torsemide 20 mg once a day and fluticasone nasal spray 2 puffs once a day. [facility] [address] [place] [address] CONSULTATION Name: GURDEEP GALLARDO Room #: 219-P [facility] IN [facility].#: [id number] Admission: 09/06/18 ������������������ Attend Phys: Ozzie Nguyen DO Discharge: ������������������ Date of : 51 Report #: [id number] FAMILY HISTORY: Noncontributory. SOCIAL HISTORY: She had smoked cigarettes in the past, but quit more than a year ago. She denies any alcohol use. REVIEW OF SYSTEMS: As mentioned above. Otherwise, 10-point system review is negative. PHYSICAL EXAMINATION: GENERAL: On examination, she is awake, alert, appears mildly dyspneic, in no distress. VITAL SIGNS: Temperature is 98.2 degrees Fahrenheit, pulse is 110, respiratory rate is 20, blood pressure 99/64 mmHg and saturation is 92%. HEENT: Normocephalic, atraumatic. NECK: Supple, without any lymphadenopathy or thyromegaly. CHEST: Breath sounds are fair, with mild expiratory wheezes. No rales. CARDIOVASCULAR: Normal S1, S2. There is no JVD. There is no carotid bruit. Pulses are 2+/4+ bilaterally. ABDOMEN: Soft, nontender. No organomegaly or masses felt. GENITOURINARY: Deferred. RECTAL: Deferred. EXTREMITIES: There is no edema, cyanosis or clubbing. LABORATORY DATA: Chest x-ray shows bibasilar linear band-like opacities seen in the right upper lobe, mild right-sided pleural effusion and mild increase in interstitial markings. BNP 7800. Lactic acid is 4.3. D-dimer is 3.8. Valproic acid level is 28. Troponin is 0.13. EKG shows atrial fibrillation with rapid ventricular response and poor R-wave progression. TSH 11.0. CT chest angiogram showed no evidence of pulmonary embolus. Bibasilar lower lobe infiltrates are noted, suggestive of atelectasis, possible infiltrates and small bilateral pleural effusions. Procalcitonin level is normal. Echocardiogram showed ejection fraction of 55%, with a mildly dilated right ventricle. Pulmonary artery pressure measuring 50 mmHg. Initial arterial blood gas revealed pH of 7.14, pCO2 of 82 and pO2 of 140 on supplemental O2. WBC 4200, hemoglobin is normal and platelets are normal. Albumin is 2.0. IMPRESSION: 1. Pohub-nh-mrgvhdr hypercapnic hypoxic respiratory failure in this 68-year-old white female. She has a history of chronic obstructive pulmonary disease along with bipolar disorder. Her BMI is 45. Chest x-ray shows atelectasis, possible infiltrates. She complains of weakness. Suspect underlying chronic obstructive pulmonary disease with possible sleep-related breathing disorder. Pneumonia cannot be ruled out. 2. History of chronic obstructive pulmonary disease, severity unknown. 3. Apparent history of chronic weakness, etiology undetermined. [facility] [address] [place] [address] CONSULTATION Name: GURDEEP GALLARDO Room #: 219-P [facility] IN M.R.#: [id number] Admission: 09/06/18 ������������������ Attend Phys: Ozzie Nguyen, DO Discharge: ������������������ Date of : 51 Report #: [id number] 4. Atrial fibrillation with rapid ventricular response per Cardiology. 5. History of sick sinus syndrome, status post permanent pacemaker placement. 6. Rvpaw-rk-vcauzcr heart failure. 7. Possible pneumonia. 8. Hypertension. 9. Hypothyroidism. Elevated TSH. 10. History of gastric bypass surgery. 11. Remote history of tobacco use. RECOMMENDATIONS AND DISCUSSION: I agree with noninvasive ventilation, bronchodilators and corticosteroids along with broad-spectrum antibiotics. Wean O2 for saturation 90%. DVT and GI prophylaxis recommended. The patient will benefit from outpatient followup regarding possible sleep disorder. Thank you for this consultation. ��������������������������������������������� <ELECTRONICALLY SIGNED> ���������������������������������������� By: Raffy Escobar MD ��������������������������������������������� 09/09/18 1944 1719 2317 Raffy Escobar MD /nt
--- NOTE | 2018-09-10 04:08 | NUR ---
ASSESSMENT DOCUMENTED.PT BEEN RESTING IN NO ACUTE DISTRESS.A/OX4.VSS.AFIB ON MONITOR.INCONTINENT OF BLADDER.PERICARE GIVEN.BIPAP AT HS.PT DENIES PAIN OR ANY DISCOMFORT.POC IS TO CONT WITH ABT WITH POSSIBLE DISCHARGE TO SKILLED FACILITY.
[2018-09-10 04:12] VITALS: BP 97/59
[2018-09-10 05:09] LABS: POTASSIUM 4.7 mmol/L (3.5-5.1)
[2018-09-10 07:30] VITALS: BP 113/54
[2018-09-10 11:24] VITALS: BP 115/73
[2018-09-10] MEDS ORDERED: DIGOXIN125 MCG PO (12:11)
[2018-09-10] MEDS ORDERED: CARDIZEM CD 18180 M3 PO (12:11)
[2018-09-10] MEDS ORDERED: METOPROLOL SUCC50 MG PO (12:11)
--- NOTE | 2018-09-10 12:40 | NUR ---
Pt accepted for SNF stay at [facility]. Medically cleared for dc today. Pt, son and the care team updated. 3pm w/c van with o2 setup per the snf. Chart copy and 124c are ready to be sent with the pt. Nursing to call report. All parties updated.
--- NOTE | 2018-09-10 13:59 | NUR ---
PT DISCHARGING TODAY TO [facility] FAXED DC ORDERS/SUMMARY TO FACILITY SPOKE WITH GWEN IN ADM SHE RECEIVED DC ORDERS AND ARRANGED TRANSPORT VIA WC VAN FOR 1500 TODAY. FAMILY NOTIFIED BY TANVI. UNIT NOTIFIED AND CHART COPY PER US. RN TO CALL REPORT TO [phone].
--- NOTE | 2018-09-10 15:25 | NUR ---
ASSESSMENT DOCUMENTED. PT ALERT AND ORIENTED. DENIED HAVNING PAIN OR DISCOMFORT. VSS. SEEN BY DR. TRONCOSO. ORDERS GIVEN TO DISCHARGE PT TO [facility]. REPORT CALLED IN TO SNF. PICC LINE DISCONTINUED.
== END 2018-09-10 15:43 | DRG 871 ==
LOC: ER 18:44 → EROBS 22:00 → 2N 22:00
PROVIDERS: Emergency Medicine; Nurse Practitioner Acute Care; Nurse Practitioner Adult Health; Nurse Practitioner Family; Nurse Practitioner Gerontology; ADMIT Internal Medicine Geriatric Medicine
DX: A41.9 Sepsis, unspecified organism (principal); J18.9 Pneumonia, unspecified organism; J96.21 Acute and chronic respiratory failure with hypoxia; J96.22 Acute and chronic respiratory failure with hypercapnia; N17.9 Acute kidney failure, unspecified; N39.0 Urinary tract infection, site not specified; J44.1 Chronic obstructive pulmonary disease with (acute) exacerbation; J44.0 Chronic obstructive pulmonary disease with (acute) lower respiratory infection; F31.9 Bipolar disorder, unspecified; E03.9 Hypothyroidism, unspecified; K21.9 Gastro-esophageal reflux disease without esophagitis; I49.5 Sick sinus syndrome; I50.9 Heart failure, unspecified; I11.0 Hypertensive heart disease with heart failure; M19.90 Unspecified osteoarthritis, unspecified site; F12.90 Cannabis use, unspecified, uncomplicated; I95.9 Hypotension, unspecified; D69.6 Thrombocytopenia, unspecified; I48.2 Chronic atrial fibrillation; Z79.01 Long term (current) use of anticoagulants; Z95.0 Presence of cardiac pacemaker; Z87.891 Personal history of nicotine dependence; Z79.899 Other long term (current) drug therapy
CPT/HCPCS: 10081; 27000

== ENCOUNTER 2018-11-23 17:27 | Inpatient (IN) | payer OTHER ==
[~2018-11-23] VITALS: Ht 152.4 cm; Wt 99.9 kg
[~2018-11-23 17:27] MED LIST changes: +CALCIUM MAGNES1 EAC2 PO; +CARDIZEM CD 18180 M3 PO; +DEMADEX20 MG PO; +DEPAKOTE ER250 MG PO; +DIGOXIN125 MCG PO; +FLONASE 0.05%50 MCG NASAL; +LASIX 20 MG TAB20 MG PO; +LISINOPRIL10 MG PO; +LOPRESSOR50 PO; +MULTIPLE VITAM1 EAC2 PO; +OXYBUTYNIN 5 MG5 M2 PO; +ZANTAC 150MG T150 MG PO
[2018-11-23 17:28] VITALS: BP 97/51
[2018-11-23 17:56] LABS: HEMATOCRIT 34.8 % (37.0-47.0); HEMOGLOBIN 11.6 gm/dL (12.0-15.0); MCH 33.7 pg (26.0-34.0); MCHC 33.3 g/dL (28.0-37.0); MCV 101.2 fL (80.0-100.0); PLATELET COUNT 170 thou/uL (150-400); RBC 3.44 mil/uL (4.20-5.00); RDW 14.1 % (10.5-14.5); WBC 5.3 thou/uL (4.0-11.0)
[2018-11-23 18:00] LABS: ANION GAP 3 mmol/L (7-16); BUN 27 mg/dL (7-18); CALCIUM 8.6 mg/dL (8.5-10.1); CHLORIDE 98 mmol/L (98-107); CO2 39 mmol/L (21-32); CREATININE 0.8 mg/dL (0.6-1.0); GLUCOSE 138 mg/dL (74-106); POTASSIUM 4.2 mmol/L (3.5-5.1); SODIUM 140 mmol/L (136-145)
[2018-11-23 18:10] LABS: ALBUMIN 2.7 g/dL (3.4-5.0); SGOT 37 U/L (15-37); SGPT 14 U/L (30-65); TOTAL BILIRUBIN 0.5 mg/dL (<0.1-1.0); TOTAL PROTEIN 7.6 g/dL (6.4-8.2); TROPONIN-I <0.06 ng/mL (<0.06)
[2018-11-23 18:14] LABS: ABSOLUTE NEUTROPHILS 3.7 thou/uL (1.4-8.2); ANISOCYTOSIS 1+; MACROCYTES 1+; POLYCHROMASIA OCCASIONAL
[2018-11-23 18:17] LABS: URINE BILIRUBIN NEGATIVE (Negative); URINE BLOOD TRACE (Negative); URINE CLARITY SL CLOUDY; URINE COLOR YELLOW; URINE GLUCOSE-RANDOM* NEGATIVE (Negative); URINE KETONES NEGATIVE (Negative); URINE LEUKOCYTES 3+ (Negative); URINE NITRITE NEGATIVE (Negative); URINE PROTEIN (DIPSTICK) TRACE (Negative)
[2018-11-23 18:26] LABS: CASTS None Seen /LPF (None Seen); CRYSTALS None Seen /LPF (None Seen); SQUAMOUS 0-3 Few /LPF (0-3); URINE WBC >25 Many /HPF (0-5)
[2018-11-23 18:27] LABS: URINE RBC 0-2 Rare /HPF (0-2)
[2018-11-23 20:25] LABS: BE(vivo) 11.6 mmol/L (-2 to +3); HCO3 37.9 mmol/L (22.0-26.0); PCO2 59.1 mmHg (35.0-45.0); PO2 105.1 mmHg (80.0-100.0); pH 7.425 (7.360-7.450); sO2 97.8 % (92.0-98.0)
[2018-11-23 22:26] VITALS: BP 92/44
[2018-11-23 22:32] VITALS: BP 96/54
[2018-11-23 23:48] VITALS: BP 99/43
[2018-11-24] VITALS (10 sets, daily range): BP systolic 85–126; BP diastolic 45–73
--- NOTE | 2018-11-24 04:57 | NUR ---
PT. ARRIVED AT FLOOR AROUND 2240; AOX4; ABLE TO WALK FROM STRECHER TO BED; ST. AMBULATING WITH WALKER; NO C/O PAIN; NO SOB; ADMISSION PERFORMED; O2 AT 3L; ST. USING O2 AT HOME; HR ON THE 130-140s; ONCOLOGY RN NOTIFIED; ORDER RECEIVED; SBP ON THE 90s; ST. REGULAR SBP ON THE 90s; AT 0200 BP TAKEN SBP ON THE 80s; CARDIZEM DECREASE; ONCOLOGY RN NOTIFIED; ORDERS RECEIVED; MONITORING HR & BP; NO C/O DIZZINES; NO C/O CP; ASSESSMENT CHARGED; FOLLOWING POC;
[2018-11-24 06:44] LABS: CHOLESTEROL 117 mg/dL (<200); HDL CHOLESTEROL 31 mg/dL (>40); LDL CHOLESTEROL 60 mg/dL (<100); TC:HDL 3.8 Ratio (Not establshd); TRIGLYCERIDE 130 mg/dL (<150); VLDL 26 mg/dL (<40)
[2018-11-24 06:46] LABS: SERUM ASSESSMENT Clear
[2018-11-24 07:00] LABS: DIGOXIN 0.4 ng/mL (0.9-2.0)
--- NOTE | 2018-11-24 08:35 | EKG ---
[place] [address] 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 Hand: dm : 1950 Requested By: Yogesh Marcano Order Number: [id number] MD: Omari Bryant Measurements Intervals [place] Rate: 141 P: NM: QRS: 29 QRSD: 62 T: QT: 337 QTc: 516 Interpretive Statements Atrial fibrillation Nonspecific ST and T wave abnormality Low voltage Prolonged QT interval Compared to ECG 09/08/2018 08:18:05 No significant change was found Electronically Signed On 11-24-2018 8:35:24 CDT by Omari Bryant [email or web address] ��������������������������������������������� <ELECTRONICALLY SIGNED> ���������������������������������������� By: Omari Bryant MD, [facility] ��������������������������������������������� 11/24/18 0835 1825 1825 Omari Bryant MD, [facility] /EPI
--- NOTE | 2018-11-24 11:10 | NUR ---
Nutrition: pt admitted with SOB, afib and seen due to high risk screen for poor intake/weight loss. Pt reports her appetite has been down x 2 days but is now eating 100% of meals. Recent weights stable but much higher weights reported this summer. pt states her weight loss was fluid related. Noted lasix is currently being held due to volume depletion. Hx medication noncompliance. Pt agreed for RD to leave heart healthy diet materials for her and son to review. Pt lives with son and she reports they bring fast foods home frequently. RD available for further education as requested. Consider low risk
--- NOTE | 2018-11-24 15:50 | NUR ---
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 HE WORKS EVENINGS AND ABLE TO ASSIST DURING THE DAY. SHE HAS HOME OXYGEN VIA [facility] AT 3-4 LITERS. SHE HAS WALKER AT HOME THAT SHE USES ALL THE TIME. ALL NEEDS ON ONE LEVEL IN HOME. PATIENT HAS VISITING PHYS TO THE HOME DR SMITH. AMALIA HAS BRENDAN JEWELRY APPRAISER RN, RT,OT AND RESPITORY. PATIENT PLANS HOME AT THIS TIME AND NOT POST ACUTE CARE. UPDATED BRENDAN CARE.
--- NOTE | 2018-11-24 16:36 | NUR ---
ASSESSMENT CHARTED - MEDS PER MAY - KAELYN DIET AND FLUIDS WITH NO CO'S OF NAUSEA. NO REQUESTS FOR PAIN MEDICATION THIS SHIFT - PT GIVEN DIGOXIN ORDERED AND CARDIZEM D/C'D. PT UP TO THE RESTROOM - DOES BECME SOB WITH EXERTION AND HEART RATE ELEVATES DOES COME BACK DOWN ONCE PATIENT SETTLED. SAEEN BY PHYS AND OCC THERAPY THIS SHIFT. NO CO'S AT THE PRESENT TIME APPEARS TO BE RESTING COMFORTABLY.
--- NOTE | 2018-11-24 16:44 | NUR ---
FAXED CLINICAL UPDATE TO [facility] RECEIVED CONFIRMATION. DCP TO FOLLOW.
--- NOTE | 2018-11-24 17:07 | NUR ---
PT IS CURRENT WITH [facility] FAXED CLINICAL UPDATE RECEIVED CONFIRMATION. DCP TO FOLLOW.
[2018-11-25 03:06] VITALS: BP 135/85
--- NOTE | 2018-11-25 05:04 | NUR ---
RECEIVED PT'S CARE AT 1900; PT. ON BED; AOX4; HR 100-110s; DURING ASSESSMENT NO C/O PAIN; NO C/O SOB; LUNGS SOUNDS AT THE BOTTOM CRACKLES; READING ASSISTANT NOTIFIED; ORDERS RECEIVED; NS RATE DECREASED TO 75 ML/H; PT. ST. WANTS TO REST; AROUND 2300 PT'S HR BETWEEN 100-120s; NO MANTAIN; NO C/O PALPITATIONS; AROUND 0200 PT'S HR INCREASING TO 130s; AT 0330 PT'S HR INCREASING UP TO 140s; REMAINED MOSLTY ON THE 120s; PHYSICIAN NOTIFIED; ORDERS RECEIVED; MONITORING; SBP ABOVE 100 AT 0330; CHECK CHARTING; MONITORING; ASSESSMENT CHARGED; FOLLOWING POC; WILL PASS ON REPORT.
[2018-11-25 07:24] VITALS: BP 105/51
[2018-11-25 12:10] VITALS: BP 117/57
[2018-11-25 12:51] LABS: TSH 0.597 uIU/mL (0.358-3.740)
[2018-11-25 17:20] VITALS: BP 126/48
--- NOTE | 2018-11-25 18:02 | NUR ---
SNF recommended at dc. Discussed with the pt at bedside. She is agreeable and would like to go to [facility]. Message left for admissions liason. Will fax referral in the am. Pt getting diuresed today and amnio load. Will follow.
[2018-11-25 20:21] VITALS: BP 138/67
[2018-11-25 23:36] VITALS: BP 115/52
--- NOTE | 2018-11-26 04:10 | NUR ---
PATIENT ALERT AND ORIENTED X4, NO COMPLAINTS OF PAIN. A-FIB ON LASER SPECIALIST, IV AMIODARONE INFUSING FOR CONTROL. ON 4L NASAL CANNULA, DYSPNEA WITH INCREASED ACTIVITY. TOLERATING DIET. UP WITH STANDBY ASSISTANCE TO BEDSIDE COMMODE. NO SIGNS OF ACUT DISTRESS NOTED AT THIS TIME. WILL CONTINUE TO MONITOR.
[2018-11-26 05:28] VITALS: BP 142/71
[2018-11-26 05:42] LABS: CREATININE 0.5 mg/dL (0.6-1.0); POTASSIUM 3.7 mmol/L (3.5-5.1)
[2018-11-26 05:45] LABS: HEMATOCRIT 31.3 % (37.0-47.0); MCH 33.8 pg (26.0-34.0); MCV 105.7 fL (80.0-100.0); RBC 2.96 mil/uL (4.20-5.00); RDW 14.3 % (10.5-14.5); WBC 5.4 thou/uL (4.0-11.0)
[2018-11-26 08:00] VITALS: BP 115/48
[2018-11-26 12:00] VITALS: BP 117/46
--- NOTE | 2018-11-26 12:08 | NUR ---
FAXED REFERRAL TO [facility] SPOKE WITH GWEN IN ADM SHE RECEIVED REFERRAL AND CAN ACCEPT PT AT DISCHARGE. DCP TO FOLLOW.
[2018-11-26 16:00] VITALS: BP 135/64
--- NOTE | 2018-11-26 17:14 | NUR ---
[facility] can accept the pt. no weekend dc anticipated. will update them on Thursday. pt has used 45 snf day and has 53 remaining.
--- NOTE | 2018-11-26 18:58 | NUR ---
ASSUMED CARE AT 0700, SHIFT ASSESSMENT DONE, MEDS GIVEN, VSS. DENIES ANY PAIN, NAUSEA,
[2018-11-26 20:00] VITALS: BP 134/62
[2018-11-26 22:21] VITALS: BP 113/57
[2018-11-27 04:45] VITALS: BP 91/67
--- NOTE | 2018-11-27 06:12 | NUR ---
A/O X 4.DENIES PAIN.SOB WITH ACTIVITY.ON O2 4-6 L NASAL CANNULA.TRANSFERRED FROM ROOM 200 TO 213.AFTER MIDNIGHT PATIENT DESATS IN THE 60% ON 6L.PLACED ON NON REBREATHER.BREATHING TREATMENT GIVEN PER RT.DISCONTINUED IV FLUIDS DUE TO PATIENT CLAIMED THAT SHE HAS HISTORY OF CHF.LASIX IV WAS GIVEN.EXTERNAL SNYDER CATH WAS PLACED.MONITOR SHOWS AFIB WITH RVR.AMIODARONE GTT CONTINUED.PATIENT IS BACK TO 6L NASAL CANNULA.WILL MONITOR AND CONTINUE POC.
[2018-11-27 08:00] VITALS: BP 123/66
[2018-11-27 12:00] VITALS: BP 104/59
[2018-11-27 16:00] VITALS: BP 106/61
--- NOTE | 2018-11-27 18:02 | NUR ---
VSS REMAINS AFIB WITH VR 95-120. LUNGS WITH FINE CRACKLES AND WHEEZES AT TIMES. O2 SAT 4L 93-94%, O2 SAT ON 4L AT 1600 WAS 88% INCREASED O2 TO 5L WITH SUBSEQUENT SATS 91-92%. PT HAVING BLOOD TINGED SPUTUM. WILL WATCH. PT DIEURESING WELL WITH FEMALE EXTERNAL CATH AND VOID UNMEASURED PLUS 500CC. UP TO BSC WITH ASSIST AND TOLERATING WELL TODAY, WITH NO HILTON OR DESATING WILL CONTINUE TO MONITER AND CARE FOR PTPER PLAN OF CARE
--- NOTE | 2018-11-27 19:46 | NUR ---
VASCULAR ACCESS CALLED DUE TO AMIODORONE INFUSING OVER 24HR.RIGHT ARM RED AMIO D/C PT'S LABS,MEDS,HISTORY, ORDER AND CONSENT VERIFIED. DISCUSSED BENEFITS AND RISK OF PICC WITH PT,VERBALIZED UNDERSTANDING. SHAHRZAD BASILIC WAS WIDELY PATENT WITH USG, 4FR DL POWER PICC TRIMMED TO 43CM INSERTED TO 1CM EXTERNAL PER HOSPITAL P&P. PT TOLERATED WELL. GAUZE APPLIED DUE TO BLEEDING AT INSERTION SITE. STAT CXR ORDERED.
--- NOTE | 2018-11-27 20:10 | NUR ---
CXR CONFIRMED PICC AT [facility], RELEASED FOR IMMEDIATE USE PER PROTOCOL TO SANJANA
[2018-11-27 20:26] VITALS: BP 123/72
[2018-11-27 20:56] LABS: URINE BILIRUBIN NEGATIVE (Negative); URINE BLOOD 1+ (Negative); URINE CLARITY CLEAR; URINE COLOR YELLOW; URINE GLUCOSE-RANDOM* NEGATIVE (Negative); URINE KETONES NEGATIVE (Negative); URINE LEUKOCYTES NEGATIVE (Negative); URINE NITRITE NEGATIVE (Negative); URINE PROTEIN (DIPSTICK) NEGATIVE (Negative); URINE SPECIFIC GRAVITY <= 1.005 (1.005-1.035)
[2018-11-27 21:18] LABS: BACTERIA 1-9 Few /HPF (None Seen); CASTS None Seen /LPF (None Seen); CRYSTALS None Seen /LPF (None Seen); MUCUS None Seen strn/LPF (None Seen); SQUAMOUS 0-3 Few /LPF (0-3); URINE RBC 3-10 Few /HPF (0-2); URINE WBC None Seen /HPF (0-5)
--- NOTE | 2018-11-28 03:20 | NUR ---
ASSUMED PT CARE AT 1900. PT A/OX4, VITAL SIGNS STABLE, ASSESSMENT CHARTED. NO COMPLAINTS OF PAIN. PT SOA WITH ACTIVITY TO THE BEDSIDE COMMODE, HOWEVER RECOVERS ONCE SETTLED IN BED. ON 5L 02 THROUGH THE NIGHT. SPONGE BATH GIVEN BEFORE BED. PT RESTED WELL THROUGH THE NIGHT. FALL PRECAUTIONS IN PLACE, FREQUENT CHECKS. PROGRESSING TOWARD PLAN OF CARE. WILL CONTINUE TO MONITOR.
[2018-11-28 04:04] LABS: ABSOLUTE NEUTROPHILS 3.5 thou/uL (1.4-8.2); EOSINOPHILS 0.7 % (0.0-3.0); HEMATOCRIT 30.3 % (37.0-47.0); HEMOGLOBIN 9.8 gm/dL (12.0-15.0); LYMPHOCYTES 12.5 % (24.0-44.0); MCHC 32.5 g/dL (28.0-37.0); MCV 104.7 fL (80.0-100.0); MONOCYTES 9.3 % (1.0-8.0); PLATELET COUNT 193 thou/uL (150-400); POLYS 76.5 % (36.0-66.0); RBC 2.89 mil/uL (4.20-5.00); RDW 13.7 % (10.5-14.5); WBC 4.6 thou/uL (4.0-11.0)
[2018-11-28 04:13] LABS: ALBUMIN 2.2 g/dL (3.4-5.0); CALCIUM 8.5 mg/dL (8.5-10.1); CREATININE 0.5 mg/dL (0.6-1.0); MAGNESIUM 1.9 mg/dL (1.8-2.4); POTASSIUM 3.8 mmol/L (3.5-5.1); TOTAL BILIRUBIN 0.4 mg/dL (<0.1-1.0); TOTAL PROTEIN 6.9 g/dL (6.4-8.2)
[2018-11-28 04:45] VITALS: BP 130/85
[2018-11-28 07:26] VITALS: BP 139/84
[2018-11-28 11:33] VITALS: BP 110/59
--- NOTE | 2018-11-28 14:13 | NUR ---
VSS REMAINS AFIB WITH VR 100-115 REMAINS ON IV AMIODARONE GTT AT .5 MCG/MIN. LUNGS WITH FINE CRACKLES AND WHEEZES, O2 SAT 4L IS 93%, PT DOES DESAT TO HIGH 80'S WHEN UP TO BSC, BUT RECOVERS BACK TO LOW 90'S QUICKLY. PT HAVING BLOOD TINGED SPUTUM. MD AWARE, PT DOES GET HILTON WITH AVTIVITY TO BSC. WILL CONTINUE TO MONITER AND CARE FOR PTPER PLAN OF CARE
[2018-11-28 16:14] VITALS: BP 116/62
[2018-11-28 20:13] VITALS: BP 98/50
[2018-11-29 03:11] VITALS: BP 158/89
[2018-11-29 05:01] LABS: ABSOLUTE NEUTROPHILS 3.8 thou/uL (1.4-8.2); BASOPHILS 0.9 % (0.0-2.0); EOSINOPHILS 1.5 % (0.0-3.0); HEMATOCRIT 28.9 % (37.0-47.0); HEMOGLOBIN 9.4 gm/dL (12.0-15.0); LYMPHOCYTES 8.8 % (24.0-44.0); MCHC 32.6 g/dL (28.0-37.0); MCV 104.3 fL (80.0-100.0); MONOCYTES 9.1 % (1.0-8.0); PLATELET COUNT 225 thou/uL (150-400); POLYS 79.7 % (36.0-66.0); RBC 2.77 mil/uL (4.20-5.00); RDW 13.6 % (10.5-14.5); WBC 4.8 thou/uL (4.0-11.0)
[2018-11-29 05:13] LABS: ANION GAP < 0 mmol/L (7-16); BUN 9 mg/dL (7-18); CALCIUM 8.4 mg/dL (8.5-10.1); CHLORIDE 102 mmol/L (98-107); CO2 43 mmol/L (21-32); CREATININE 0.5 mg/dL (0.6-1.0); GLUCOSE 183 mg/dL (74-106); MAGNESIUM 1.8 mg/dL (1.8-2.4); PHOSPHORUS 3.8 mg/dL (2.5-4.9); POTASSIUM 3.3 mmol/L (3.5-5.1); SGOT 12 U/L (15-37); SGPT 7 U/L (30-65); SODIUM 142 mmol/L (136-145); TOTAL BILIRUBIN 0.3 mg/dL (<0.1-1.0); TOTAL PROTEIN 6.3 g/dL (6.4-8.2)
--- NOTE | 2018-11-29 06:11 | NUR ---
PATIENT HAD BEEN NPO AFTER MIDNIGHT FOR A POSSIBLE CARDIOVERSION TODAY.PATIENT HAS EPISODE OF DESATTING IN THE 40% WHEN UP TO THE BEDSIDE COMMODE.BREATHING TREATMENT WAS GIVEN BY RT.CURRENTLY ON 02 PER NASAL CANNULA PLUS VENTIMASK AT 4L.ON AMIODARONE GTT.VANC TROUGH IS 16 THIS MORNING,NO CHANGES ON THE DOSE AND IT WAS INFUSED.MONITOR SHOWS AFIB WITH RVR.WILL CONTINUE POC.
--- NOTE | 2018-11-29 07:44 | HC ---
[facility] [place] [address] [place] [address] CONSULTATION Name: GURDEEP GALLARDO Room #: 213-P ADM IN M.R.#: [id number] Admission: 11/23/18 ������������������ Attend Phys: Val Dumont Discharge: ������������������ Date of : 51 Report #: [id number] THIS REPORT FOR: //name// CC: [facility] physician/PCP Val Dumont DATE OF SERVICE: 11/28/2018 INFECTIOUS DISEASE CONSULTATION ATTENDING PHYSICIAN: Dr. Dumont. REASON FOR EVALUATION: Septicemia with conflicting blood cultures. HISTORY OF PRESENT ILLNESS: Chart reviewed, patient examined. This is a 68-year-old woman with fairly extensive medical history, does have O2 requiring COPD and anxiety, who was admitted through the Emergency Room with complaints of burning with urination and frequency. The symptoms began 3 days prior. Does have ongoing issue with dyspnea. She noted lower extremity edema as well. It is not clear that she had fevers or chills at that time. On initial evaluation, blood cultures were collected, 1/2 which had growth of gram-positive cocci. Urine was collected a day later. Repeat cultures, however, on the 11/26/2018 now with 1/2 growing gram-negative [place]. She did have a chest x-ray which showed cardiomegaly without failure, though she had improved from the previous exam. CT of the chest showed some atelectasis. There is no evidence of pulmonary embolus. She does admit to cough. She states it is occasionally productive of bloody sputum, depressed appetite, so empirically started on ceftriaxone with more recently switched to vancomycin, piperacillin and tazobactam. She has not been febrile. At this point, she is quite anxious. ALLERGIES: None known. MEDICATIONS: Currently include furosemide, vancomycin, Zosyn, alteplase, ipratropium and albuterol inhaler, amiodarone, rivaroxaban, divalproex, multivitamin. PAST MEDICAL HISTORY: Hypertension; COPD, O2 requiring; hypothyroidism; has a pacemaker. SOCIAL HISTORY: Former smoker. No significant alcohol, previous history of illicit drug use. FAMILY HISTORY: Noncontributory. REVIEW OF SYSTEMS: Also noted above. Does admit to some GI related distress, poor appetite. [facility] [address] [place] [address] CONSULTATION Name: GURDEEP GALLARDO Room #: [address] [place] [address] IN .R.#: [id number] Admission: 11/23/18 ������������������ Attend Phys: Val Dumont Discharge: ������������������ Date of : 52 Report #: [id number] PHYSICAL EXAMINATION: GENERAL: She is quite anxious, mildly encephalopathic, appears chronically ill, undernourished. VITAL SIGNS: Temperature 97.5, pulse 105, respirations 22, blood pressure 130/85, saturation is 93%. SKIN: She has actually several tattoos, otherwise warm and dry. HEENT: Normocephalic. Extraocular muscles intact. NECK: Supple. LUNGS: Scattered crackles at the bases. Diminished overall. HEART: Borderline tachycardic, appears regular. I do not appreciate a murmur. ABDOMEN: Mildly distended, soft, nontender. GENITOURINARY AND RECTAL: Deferred. EXTREMITIES: Distal lower extremities without significant edema. LABORATORY DATA: Lactic acid 0.5. Electrolytes: Sodium 141, potassium 3.8, chloride 100, bicarbonate is 41, anion gap of 0. BUN and creatinine 11 and 0.5, glucose of 171. LFTs unremarkable. Albumin 2.2, total protein of 6.9. Estimated GFR 123. CBC: White count of 4.6, H and H 9.8 and 30.3, platelets of 193, MCV elevated at 104.7. Chest x-ray has multifocal bilateral pulmonary airspace disease suggesting pneumonitis, small effusion. Blood cultures, various stages of growth. Initial ones from the 11/23/2018, has Gram-positive cocci; from the 11/26/2018, 03/24 gram-negative [place]. ASSESSMENT: Septicemia. I suspect the initial blood cultures likely represent a contaminant of false positive; however, the gram-negative [place] is likely real and I suspect urinary tract at source. There was delay apparently collecting the urine. We will continue combination therapy. It is difficult to ascertain based on her underlying chronic obstructive pulmonary disease if indeed has an early pneumonitis as well. We will try to collect sputum from her given the possibility of hemoptysis, check urinary antigen for Legionella and pneumococcus. She remains quite tenuous at this point. Increase activity as allowed, optimize her nutritional status, monitor expectantly. ��������������������������������������������� <ELECTRONICALLY SIGNED> ���������������������������������������� By: Willian Paredes MD ��������������������������������������������� 11/29/18 0744 0615 2138 Willian Paredes MD /nt
[2018-11-29 08:45] VITALS: BP 107/65
[2018-11-29 12:40] VITALS: BP 113/81
--- NOTE | 2018-11-29 14:02 | NUR ---
FAXED CLINICAL UPDATE TO [facility] SPOKE WITH GWEN IN ADM SHE RECEIVED UPDATE. DCP TO FOLLOW.
--- NOTE | 2018-11-29 15:02 | NUR ---
VSS REMAINS AFIB WITH VR 100-120, BP STABLE, LUNGS REMAINS WITH FINE CRACKLES AND WHEEZES AT TIMES. PT ON 5L O2 AND SATING 91-94%, PT DOES DESAT WHEN UP TO BSC TO 80-88%, SHE RECOVERS QUIKLY TO 92%, SHE USES 40% VENTI MASK TO RECOVER MORE EASILY. DIEURESING WELL WITH IV LASIX. WILL CONTINUE TO MONITER AND CARE FOR PT PER PLAN OF CARE
[2018-11-29 15:12] VITALS: BP 123/71
[2018-11-29 19:20] VITALS: BP 101/68
[2018-11-30 02:42] VITALS: BP 116/62
[2018-11-30 07:25] VITALS: BP 129/83
[2018-11-30 11:30] VITALS: BP 101/56
--- NOTE | 2018-11-30 14:06 | NUR ---
Followup: CHF, htn, bacteremia. Eating 75-100% of meals. Class III extreme obesity, BMI 43. Requires diuresis. Diet materials have been provided this admission for pt/family. Continue heart healthy diet restriction. Low nutrition risk
[2018-11-30 16:10] VITALS: BP 112/55
--- NOTE | 2018-11-30 18:00 | NUR ---
ASSESSMENT CHARTED. PT ALERT AND ORIENTED. VSS. INCONTINENT OF BLADDER. CONTACT ISOLATION IMPLEMENTED. IV ABX GIVEN ORDERED. WILL CONTINUE TO MONITOR.
[2018-11-30 19:47] VITALS: BP 105/65
[2018-12-01] VITALS (7 sets, daily range): BP systolic 105–120; BP diastolic 58–73
--- NOTE | 2018-12-01 02:19 | NUR ---
ASSUMED CARE OF PATIENT AT 1900. VSS, AFEBRILE. DENIES PAIN OR N/V. IS CONCERNED SHE IS NEEDING MORE O2. UP TO BSC TO VOID. LESS SOA THAN PREVIOUSLY NOTED. APPETITE GOOD AND ORAL INTAKE. CALLS APPROPRIATELY. PROGRESSING WELL TOWARDS POC GOALS.
[2018-12-01 09:14] LABS: BUN 24 mg/dL (7-18); CALCIUM 8.5 mg/dL (8.5-10.1); CHLORIDE 97 mmol/L (98-107); CREATININE 0.8 mg/dL (0.6-1.0); GLUCOSE 286 mg/dL (74-106); POTASSIUM 4.3 mmol/L (3.5-5.1); SODIUM 142 mmol/L (136-145)
[2018-12-01 09:19] LABS: CO2 > 45 mmol/L (21-32)
--- NOTE | 2018-12-01 12:28 | NUR ---
Patient strongly wants to return home rather than skilled at [facility]. She plans to work with therapy today to determine home with HH [facility] or skilled.
--- NOTE | 2018-12-01 15:05 | NUR ---
ASSESSMENT CHARTED. PT ALERT AND ORIENTED. PLEASANT AND COOPERTAIVE WITH CARES. CONTACT ISOLATION ENFORCED. RT TREATMENT PROVIDED ORDERTED. SOB NOTED WITH ACTIVITY. NO CONCERNS AT THIS TIME. PROGRESSING WELL TOWARD DISCHARGE GOAL. WILL CONTINUE TO MONITOR.
--- NOTE | 2018-12-01 16:31 | NUR ---
FAXED REFERRAL TO [facility] SPOKE WITH INTAKE LIASON AND THE RECEIVED REFERRALL AND CAN ACCEPT. ANTICIPATE DC TOMORROW. DCP TO FOLLOW.
--- NOTE | 2018-12-01 17:14 | NUR ---
Assumed care approx. 1630 this afternoon. Patient is a transfer from CCU. Patient is in no distress. VSS. All belongings with patient. Room is in proper isolation. Tele strip assessed-pt remains in Afib. Patient on 5LNC with O2 sat of 97%. Patient hopeful for discharge early tomorrow. Will continue to monitor.
[2018-12-02 03:58] VITALS: BP 11/63; BP 111/63
--- NOTE | 2018-12-02 06:41 | NUR ---
SLEPT MOST OF SHIFT. PLANS FOR DISCHARGE TODAY. UP WITH STANDBY ASSIST. MAINTAIN SAFE ENVIRONMENT. WORKING ON GOAlS AND PLAN OF CARE FOR NOC. PROGRESSING TOWARDS DISCHARGE GOALS SLOWLY. DENIES COMPLAINTS OF PAIN AT THIS TIME. SOME SHORTNESS OF AIR WITH ACITIVITY. ON 5L NC PER HOME. CONTINUE TO ASSES.
[2018-12-02 07:22] VITALS: BP 110/66
[2018-12-02] MEDS ORDERED: LEVAQUIN 500 M500 M1 PO (10:02)
[2018-12-02] MEDS ORDERED: PACERONE 200 M200 M1 PO (10:03)
[2018-12-02] MEDS ORDERED: CARDIZEM CD240 MG PO (10:03)
[2018-12-02] MEDS ORDERED: DEMADEX20 MG PO (10:03)
[2018-12-02] MEDS ORDERED: PULMICORT0.5 MG/21 INH (10:04)
[2018-12-02] MEDS ORDERED: PREDNISONE 10 M10 MG PO (10:05)
--- NOTE | 2018-12-02 10:28 | NUR ---
DISCHARGE ORDERS COMPLETED. PATIENT DISCHARGING TO HOME WITH [facility]. DISCHARGE/HOME HEALTH ORDERS AND DISCHARGE SUMMARY FAXED TO [facility]. CALL PLACED TO [facility], SPOKE WITH KALI. KALI TO FACILITATE PATIENTS HH NEEDS.
--- NOTE | 2018-12-02 10:30 | NUR ---
DISCHARGE NOTE: TANVI reviewed chart and spoke with nursing and attending physician. Pt was transferred to from and is medically stable for discharge home today. Orders written for HH. digital media planner faxed discharge orders/summary to [facility]. TANVI met with pt at bedside to discuss discharge plan. Pt is agreeable with plan. Pt states her son would be able to pick her up later this evening. Pt agreeable with w/c van transportation home if Case Mgmt dept is able to coordinate. TANVI contacted Director of Case Mgmt. Awaiting input at this time. Pt will need portable O2 for transportation home. TANVI is following to finalize discharge.
[2018-12-02 11:22] VITALS: BP 122/61
[2018-12-02 14:15] VITALS: BP 105/59
[2018-12-02 14:56] VITALS: BP 105/59
--- NOTE | 2018-12-02 15:02 | NUR ---
Assumed care approx. 0700 this AM. Discharge orders obtained. Tele removed and PICC line dc'd. Patient on 3LNC before discharge and tolerating well. Patient taken by scheduled wheelchair van back to home. Discharge packet, prescriptions and script information given to patient. All questions answered. All belongings with patient. Patient left unit at approx. 1451 with transporter.
== END 2018-12-02 15:52 | disposition home health service (06) | DRG 871 ==
LOC: ER 17:27 → 3W 21:15 → EROBS 21:15 → 2N 21:15 → 3W 12-01 16:16
PROVIDERS: Emergency Medicine; Hospitalist; Internal Medicine; Internal Medicine Geriatric Medicine; Nurse Practitioner Acute Care; Nurse Practitioner Adult Health; ADMIT Hospitalist
PROC: 02HV33Z Insertion of Infusion Device into Superior Vena Cava, Percutaneous Approach (ICD-10-PCS; principal; 2018-11-27)
DX: A41.9 Sepsis, unspecified organism (principal); J96.21 Acute and chronic respiratory failure with hypoxia; N39.0 Urinary tract infection, site not specified; L03.90 Cellulitis, unspecified; R04.2 Hemoptysis; I11.0 Hypertensive heart disease with heart failure; I50.9 Heart failure, unspecified; J44.9 Chronic obstructive pulmonary disease, unspecified; I48.2 Chronic atrial fibrillation; F31.9 Bipolar disorder, unspecified; E03.9 Hypothyroidism, unspecified; M19.90 Unspecified osteoarthritis, unspecified site; I95.9 Hypotension, unspecified; E53.8 Deficiency of other specified B group vitamins; I49.5 Sick sinus syndrome; B96.20 Unspecified Escherichia coli [E. coli] as the cause of diseases classified elsewhere; Z95.0 Presence of cardiac pacemaker; Z79.01 Long term (current) use of anticoagulants; Z87.891 Personal history of nicotine dependence; Z95.1 Presence of aortocoronary bypass graft
CPT/HCPCS: 10081; 10779; 10879; 27000

== ENCOUNTER 2018-12-30 12:03 | Inpatient (IN) | payer OTHER ==
[~2018-12-30] VITALS: Ht 152.4 cm; Wt 99.8 kg
[~2018-12-30 12:03] MED LIST changes: +CARDIZEM CD240 MG PO; +LEVAQUIN 500 M500 M1 PO; +PACERONE 200 M200 M1 PO; +PREDNISONE 10 M10 MG PO; +PULMICORT0.5 MG/21 INH
[2018-12-30 12:04] VITALS: BP 131/69
[2018-12-30] MEDS ORDERED: PROAIR HFA8.5 GM NEB (12:15)
[2018-12-30] MEDS ORDERED: VENTOLIN HFA 1818 GM INH (12:16)
[2018-12-30] MEDS ORDERED: AMIODARONE HCL400 MG PO (12:16)
[2018-12-30] MEDS ORDERED: FOSAMAX 70 MG T70 MG PO (12:16)
[2018-12-30] MEDS ORDERED: CALCIUM500 MG PO (12:17)
[2018-12-30] MEDS ORDERED: PERFOROMIS20 MCG/2 M INH (12:18)
[2018-12-30] MEDS ORDERED: IRON159 MG PO (12:19)
[2018-12-30] MEDS ORDERED: TOPROL XL50 MG PO (12:20)
[2018-12-30] MEDS ORDERED: OXYBUTYNIN 5 MG5 M2 PO (12:20)
[2018-12-30] MEDS ORDERED: DEMADEX20 MG PO (12:21)
[2018-12-30 12:34] LABS: HEMATOCRIT 31.4 % (37.0-47.0); HEMOGLOBIN 10.3 gm/dL (12.0-15.0); MCH 34.1 pg (26.0-34.0); MCHC 32.9 g/dL (28.0-37.0); MCV 103.9 fL (80.0-100.0); RBC 3.02 mil/uL (4.20-5.00); RDW 14.2 % (10.5-14.5); WBC 2.8 thou/uL (4.0-11.0)
[2018-12-30 12:53] LABS: ANION GAP 3 mmol/L (7-16); BUN 12 mg/dL (7-18); CALCIUM 8.3 mg/dL (8.5-10.1); CHLORIDE 103 mmol/L (98-107); CO2 37 mmol/L (21-32); CREATININE 0.6 mg/dL (0.6-1.0); GLUCOSE 129 mg/dL (74-106); POTASSIUM 3.3 mmol/L (3.5-5.1); SODIUM 143 mmol/L (136-145)
[2018-12-30 13:00] LABS: ABSOLUTE NEUTROPHILS 1.8 thou/uL (1.4-8.2); NUCLEATED RBCS 1 /100WBC; PLATELET COUNT 137 thou/uL (150-400)
[2018-12-30 13:01] LABS: ANISOCYTOSIS 1+; MACROCYTES 1+; PLATELET ESTIMATE SLIGHTLY DECREASED
[2018-12-30 13:03] LABS: ALBUMIN 2.7 g/dL (3.4-5.0); MAGNESIUM 1.6 mg/dL (1.8-2.4); SGOT 11 U/L (15-37); SGPT 10 U/L (30-65); TOTAL BILIRUBIN 0.2 mg/dL (<0.1-1.0); TOTAL PROTEIN 6.2 g/dL (6.4-8.2); TROPONIN-I <0.06 ng/mL (<0.06)
[2018-12-30 16:01] VITALS: BP 95/60
[2018-12-30 16:16] VITALS: BP 112/52
--- NOTE | 2018-12-30 18:32 | NUR ---
68 YO FEMALE ADMITTED TO 211 FROM ED FOR SOA. ADMISSION ASSESSMENT COMPLETED AND CHARTED, NO COMPLAINTS OF PAIN, 4L O2, WILL CONTINUE TO MONITOR. PATIENTS HOME MEDS SENT TO PHARMACY. WILL CONTINUE TO MONITOR
[2018-12-30 20:15] VITALS: BP 94/62
[2018-12-31 04:45] VITALS: BP 110/50
--- NOTE | 2018-12-31 05:24 | NUR ---
PT A&O X4 ABLE TO MAKE NEEDS KNOWN. DENIES HAVING ANY PAIN SO FAR THIS SHIFT. SBA WITH TRANSFERS. PT HAS A PACEMAKER. CONTINUES ON 4L O2 PER NC.
[2018-12-31 05:35] LABS: HEMATOCRIT 33.5 % (37.0-47.0); MCH 34.5 pg (26.0-34.0); MCHC 32.9 g/dL (28.0-37.0); MCV 104.8 fL (80.0-100.0); RBC 3.2 mil/uL (4.20-5.00); RDW 14.2 % (10.5-14.5); WBC 3.5 thou/uL (4.0-11.0)
[2018-12-31 05:56] LABS: CALCIUM 8.6 mg/dL (8.5-10.1); CREATININE 0.6 mg/dL (0.6-1.0); MAGNESIUM 2.1 mg/dL (1.8-2.4); PHOSPHORUS 4.4 mg/dL (2.5-4.9)
[2018-12-31 06:01] LABS: POTASSIUM 4.6 mmol/L (3.5-5.1)
--- NOTE | 2018-12-31 07:56 | EKG ---
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 : 1950 Requested By: Natalio Rodriguez Order Number: [id number] MD: Omari Bryant Measurements Intervals [place] Rate: 111 P: UT: QRS: 45 QRSD: 68 T: 7 QT: 394 QTc: 536 Interpretive Statements Atrial fibrillation Nonspecific ST and T wave abnormality Low voltage Compared to ECG 11/23/2018 18:25:02 no significant change was found Electronically Signed On 12-31-2018 7:56:35 CDT by Omari Bryant [email or web address] <ELECTRONICALLY SIGNED> By: Omari Bryant MD, [facility] 12/31/18 0756 1215 14 Omari Bryant MD, [facility] /EPI
[2018-12-31 08:12] VITALS: BP 101/44
--- NOTE | 2018-12-31 08:49 | NUR ---
PATIENT CARE ASSUMED, ASSESSMENT CHARTED, VSS, ALERT AND ORIENTED X 4, NO COMPLAINTS OF PAIN OR SOA. PATIENT UP TO BEDSIDE COMMODE, WILL CONTINUE TO MONITOR
[2018-12-31 11:29] VITALS: BP 93/48
--- NOTE | 2018-12-31 12:56 | 2DMMODE ---
[facility] [address] [address] 2 D/M-MODE ECHOCARDIOGRAM Name: SAMIGURDEEP Room #: 211-P ADM IN M.R.#: [id number] Admission: 12/30/18 Attend Phys: Renetta Lozano, Discharge: Date of : 52 Report #: [id number] THIS REPORT FOR: //name// APPROVED REPORT Study performed: 12/31/2018 12:15:11 EXAM: Comprehensive 2D, Doppler, and color-flow Echocardiogram Patient Location: Echo lab Room #: [facility] Status: routine BSA: 2.02 HR: 104 bpm BP: 110/50 mmHg Rhythm: Atrial Fibrillation Other Information Study Quality: Adequate/patient didn't tolerate exam well. Not all measurements taken. Technically limited study due to obesity.. Indications Congestive Heart Failure Atrial Fibrillation Dyspnea Hx: Afib/Pacemaker, COPD, HTN. 2D Dimensions RVDd: 35.36 mm IVSd: 11.32 (7-11mm) LVOT Diam: 20.23 (18-24mm) LVDd: 46.19 mm PWd: 10.01 (7-11mm) LVDs: 33.42 (25-40mm) Aortic Root: 34.24 mm Volumes Left Atrial Volume (Systole) Single Plane 4CH: 60.13 mL Single Plane 2CH: 93.51 mL LA ESV Index: 39.00 mL/m2 Aortic Valve AoV Peak Nir.: 1.76 m/s AO Peak Gr.: 12.47 mmHg LVOT Max P.53 mmHg AO Mean Gr.: 6.56 mmHg AO V2 Mean: 1.22 m/s LVOT Max V: 0.94 m/s [facility] [address] [address] 2 D/M-MODE ECHOCARDIOGRAM Name: GURDEEP GALLARDO ZACHARY Room #: [address] [place] [address] IN ..#: [id number] Admission: 12/30/18 Attend Phys: Renetta Lozano, Discharge: Date of : 52 Report #: [id number] AO V2 VTI: 30.32 cm JEFRY Vmax: 1.71 cm2 Mitral Valve MV Decel. Time: 126.28 ms MV E Max Nir.: 1.19 m/s Pulmonary Valve PV Peak Nir.: 0.77 m/s PV Peak Gr.: 2.40 mmHg Tricuspid Valve TR Peak Nir.: 2.90 m/s RAP Estimate: 10.00 mmHg TR Peak Gr.: 33.00 mmHg PA Pressure: 43.00 mmHg Left Ventricle The left ventricle is normal size. There is normal LV segmental wall motion. There is normal left ventricular wall thickness. Left ventricular systolic function is normal. LVEF is 55%. This study is not technically sufficient to allow evaluation of the LV diastolic function due to atrial fibrillation. Right Ventricle The right ventricle is normal size. The right ventricular systolic function is normal. Atria Left atrium is moderately dilated. Right atrium is mildly dilated. Aortic Valve Aortic valve is mild-moderately thickened, mildly calcified and stenotic, probably bicuspid. No aortic regurgitation is present. Calculated aortic valve area is 1.7 cm2 with maximum pressure gradient of 13 mmHg and mean pressure gradient of 7 mmHg. Mitral Valve Mild-moderate mitral annular calcification. Mild mitral regurgitation. No evidence of mitral valve stenosis. Tricuspid Valve The tricuspid valve is normal in structure. Mild to moderate tricuspid regurgitation. Estimated PAP is 40-45mmHg. Pulmonic Valve The pulmonary valve is normal in structure. There is no pulmonic [facility] [address] [place] [address] 2 D/M-MODE ECHOCARDIOGRAM Name: GURDEEP GALLARDO Room #: [facility] IN M.R.#: [id number] Admission: 12/30/18 Attend Phys: Renetta Lozano, Discharge: Date of : 52 Report #: [id number] valvular regurgitation. Great Vessels The aortic root is normal in size. Ascending aorta is not well visualized. IVC is dilated and collapses >50% with inspiration. Pericardium There is no pericardial effusion. <Conclusion> Left ventricular systolic function is normal. There is normal LV segmental wall motion. LVEF is 55%. Left atrium is moderately dilated. Aortic valve is mild-moderately thickened, mildly calcified and stenotic, probably bicuspid. Calculated aortic valve area is 1.7 cm2 with maximum pressure gradient of 13 mmHg and mean pressure gradient of 7 mmHg. Mild-moderate mitral annular calcification. Mild mitral regurgitation. Mild to moderate tricuspid regurgitation. Estimated pulmonary artery pressure of 40-45mmHg. There is no pericardial effusion. <ELECTRONICALLY SIGNED> By: Omari Bryant MD, FACC 12/31/18 1256 1256 1256 Omari Bryant MD, FACC /INF
--- NOTE | 2018-12-31 13:34 | NUR ---
met with patient who admits with CHF exacerbation. recent dc home 12/02/18/. Patient resides at home with son. She reports she did not rec lasix script at [facility]. She monitored her weights. She saw Dr Will her pulomonogist last . She reports she discussed weight gain with him at that apt. Patient has [facility] and wants to be established with new PCP. She requested caset make an apt with Dr Fernandez. Dr Fernandez apt is at 10:15. Patient resides at home with son. She has [facility] who is aware of admission. She plans to return home and does not want post acute care. She uses home oxygen usu at 4 liters at home serviced by Lori. Casemgt following for dc planning.
--- NOTE | 2018-12-31 13:36 | NUR ---
PT ON SERVICE PRIOR TO ADM WITH [facility] MARTINEZ FAXED CLINICAL UPDATE SPOKE WITH KALI IN INTAKE SHE RECEIVED UPDATE AND NOTIFIED THAT PT POSS DC OVER WEEKEND SHOULD PT DISCHARGE OVER WEEKEND FAX DC ORDERS/SUMMARY TO [phone] AND CALL [phone] TO CONFIRM THEY RECEIVED DC ORDERS.
[2018-12-31 14:58] VITALS: BP 101/49
[2018-12-31 20:39] VITALS: BP 111/63
--- NOTE | 2018-12-31 23:50 | NUR ---
ASSESSMENTS CHARTED, MEDS CHARTED GIVEN. PATIENT ALERT AND ORIENTED IN BED DURING SHIFT. ON 4 LITERS OXYGEN VIA NC, WHICH IS HER BASELINE. USES BSC WITH ASSIST. NO SKIN ISSUES, DENIES PAIN. FALL PRECAUTIONS IN PLACE. PLAN OF CARE TO CONTINUE MEDICAL THERAPY. PATIENT REFERED TO CARDIAC REHAB.
[2019-01-01 04:30] VITALS: BP 105/49
[2019-01-01 06:33] LABS: HEMATOCRIT 31.1 % (37.0-47.0); HEMOGLOBIN 10.2 gm/dL (12.0-15.0); MCH 34.7 pg (26.0-34.0); MCHC 32.9 g/dL (28.0-37.0); MCV 105.5 fL (80.0-100.0); RBC 2.95 mil/uL (4.20-5.00); RDW 14.1 % (10.5-14.5); WBC 2.7 thou/uL (4.0-11.0)
[2019-01-01 06:45] LABS: CALCIUM 8.3 mg/dL (8.5-10.1); CREATININE 0.6 mg/dL (0.6-1.0); MAGNESIUM 1.9 mg/dL (1.8-2.4); PHOSPHORUS 4.5 mg/dL (2.5-4.9); POTASSIUM 4.5 mmol/L (3.5-5.1)
[2019-01-01 07:45] VITALS: BP 120/56
--- NOTE | 2019-01-01 10:21 | EKG ---
[address] [address] ELECTROCARDIOGRAM REPORT Name: SAMIGURDEEPPORTER SHARMA Room #: 211-P ADM IN M.R.#: [id number] Admission: 12/30/18 Attend Phys: Renetta Lozano MD Discharge: Date of : 52 Report #: [id number] THIS REPORT FOR: //name// 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
[2019-01-01 11:20] VITALS: BP 117/65
[2019-01-01 15:18] VITALS: BP 124/73
--- NOTE | 2019-01-01 17:11 | NUR ---
ASSUMED CARE AT SHIFT CHANGE, ALERT AND ORIENTED X4. DENIES ANY DISCOMFORT. VSS AND AFIB ON THE MONITOR. PROGRESSING TOWARD GOALS AND WILL CONTINUE WITH POC.
[2019-01-01 20:53] VITALS: BP 95/58
[2019-01-02 04:23] VITALS: BP 88/42
[2019-01-02 04:56] LABS: ANION GAP < 0 mmol/L (7-16); BUN 18 mg/dL (7-18); CHLORIDE 99 mmol/L (98-107); CO2 43 mmol/L (21-32); CREATININE 0.7 mg/dL (0.6-1.0); GLUCOSE 102 mg/dL (74-106); MAGNESIUM 1.7 mg/dL (1.8-2.4); PHOSPHORUS 5.1 mg/dL (2.5-4.9); POTASSIUM 4.7 mmol/L (3.5-5.1); SODIUM 141 mmol/L (136-145)
[2019-01-02 05:42] LABS: HEMATOCRIT 32.4 % (37.0-47.0); HEMOGLOBIN 10.7 gm/dL (12.0-15.0); MCH 34.5 pg (26.0-34.0); MCHC 33.1 g/dL (28.0-37.0); RBC 3.12 mil/uL (4.20-5.00); RDW 14.1 % (10.5-14.5); WBC 2.8 thou/uL (4.0-11.0)
[2019-01-02 06:42] LABS: CALCIUM 8.7 mg/dL (8.5-10.1)
[2019-01-02 07:43] VITALS: BP 112/71
--- NOTE | 2019-01-02 08:09 | NUR ---
ASSESSMENTS CHARTED. MEDS GIVEN CHARTED. PATIENT RESTING IN BED DURING SHIFT. UP TO BEDSIDE COMMODE AD YOLIE. ON LASIX THERAPY, DIURESING WELL. CONTINUING TREATMENT. PLAN IS TO DC ONCE HEART RATE IS BELOW 100 AND ON PO ORAL LASIX. DENIES PAIN.
[2019-01-02 12:11] VITALS: BP 103/65
[2019-01-02] MEDS ORDERED: DIGOXIN125 MCG PO (12:42)
[2019-01-02] MEDS ORDERED: DEMADEX20 MG PO (12:44)
[2019-01-02] MEDS ORDERED: LASIX 40 MG TAB40 MG PO (13:46)
[2019-01-02 14:21] VITALS: BP 103/65
--- NOTE | 2019-01-18 10:14 | H ---
[facility] [place] [address] HISTORY AND PHYSICAL Name: GURDEEP GALLARDO Room #: 211-P [facility] IN M.R.#: [id number] Admission: 12/30/18 Attend Phys: Renetta Lozano MD Discharge: 01/02/19 Date of : 52 Report #: [id number] THIS REPORT FOR: //name// CC: [facility] physician/PCP Renetta Lozano DATE OF SERVICE: 12/30/2018 PRIMARY CARE PHYSICIAN: Dr. Boogie. The patient wants to change her PCP to Dr. Fernandez. ANODIZE MACHINE OPERATOR: Dr. Deleon. CHIEF COMPLAINT: Shortness of breath with increased water weight for the last couple of days. HISTORY OF PRESENT ILLNESS: The patient is a very pleasant 68-year-old, morbidly obese female with a known history of congestive heart failure, informs me that she had gotten Lasix at the time of discharge when she was admitted to the hospital and was discharged on 12/02/[address] Dumont and had a 1-month supply of Lasix. She tried to reach her primary care physician; however, could not get refill on her Lasix and also could not reach her right of way supervisor as well and so she had run out of Lasix for the last 2-3 days and she noticed that progressively her weight gain got worse and her shortness of breath then also got worse starting yesterday. The patient informs me that she is so frustrated with the pharmacy as well as PCP that she absolutely cannot go through this again. She was very happy that her weight was down to 202 from 222 pounds at the last admission in early November, and she was hoping to stay away from the hospital because of progress she obtained in November. The patient was discharged on 12/02/2018; however, comes back in again because of the prescription issue. The patient denies any chest pain or palpitations. Denies any orthopnea, paroxysmal nocturnal dyspnea, or leg edema. The patient had an echocardiogram done in August of 2018 and that indicated ejection fraction of 55-66%; however, because of atrial fibrillation, it was not a correct assessment of her function. She does have mild valvular aortic stenosis as per the echo in August of 2018 and the pulmonary artery pressure was elevated to 50-55 mmHg. The patient denies any associated fever, shaking chills, or night sweats, and has not had any hematuria, dysuria, hematochezia, or melena. She denies any abdominal pain. PAST MEDICAL HISTORY: 1. Chronic atrial fibrillation. 2. Chronic anticoagulation. 3. Chronic obstructive pulmonary disease. 4. Hypothyroidism. 5. History of SVT. [facility] [address] [place] [address] HISTORY AND PHYSICAL Name: SAMIGURDEEP Room #: 211-P [facility] IN M.R.#: [id number] Admission: 12/30/18 Attend Phys: Renetta Lozano MD Discharge: 01/02/19 Date of : 52 Report #: [id number]. Recurrent urinary tract infection. PAST SURGICAL HISTORY: 1. The patient had pacemaker placement. 2. Right hip surgery. 3. Left foot surgery. 4. Tonsillectomy. 5. Hernia surgery. 6. Gastric sleeve operation. 7. Tubal ligation. ALLERGIES: The patient has no known drug allergies. CURRENT MEDICATIONS: She informs me that they are pretty much the same as discharge medication except she does not have diuretics for the last couple of days. DISCHARGE MEDICATIONS: 1. Levothyroxine 200 mcg. 2. Xarelto 20 mg. 3. Multivitamin. 4. Depakote 250 mg. 5. Flonase. 6. Digoxin 0.125 daily. 7. Levofloxacin was given for a few days. 8. Amiodarone 200 daily. 9. Diltiazem 240 daily. 10. Torsemide 20 mg daily. 11. Budesonide. 12. Prednisone 10 mg daily. Past medical history is also significant for recent E. coli bacteremia as well as Gram-positive cocci Micrococcus, and she was seen by Infectious Disease as well and was treated with antibiotics during the hospital stay. Dr. Willian Paredes saw her in Infectious Disease consultation on 11/23/2018 and was told that E. coli is consistent with urinary tract source but the Micrococcus was a contaminant and the patient was recommended to continue the antibiotic through the first of next week, which the patient informs me that she completed the course of antibiotic. FAMILY HISTORY: The patient informs me that her mother had diabetes and father, she does not know much. PERSONAL AND SOCIAL HISTORY: The patient quit smoking 4 years ago and alcohol 4 years ago also was stopped. The patient lives at home with her son and [id number] and she uses a walker. She has been ambulatory and doing well [facility] [address] [place] [address] HISTORY AND PHYSICAL Name: GURDEEP GALLARDO Room #: 211-P [facility] IN [place]#: [id number] Admission: 12/30/18 Attend Phys: Renetta Lozano MD Discharge: 01/02/19 Date of : 52 Report #: [id number] until she ran out of torsemide. ALLERGIES: The patient has no known drug allergies. REVIEW OF SYSTEMS: Only positive for constipation and lightheadedness when she is lying down at nighttime. Otherwise, she has not experienced any lightheadedness either. The patient recently was seen in [facility]' ER 2 or 3 days ago and was diagnosed with COPD exacerbation and was sent home; however, the patient informs me that the water weight gain is the main problem with dyspnea progressively worsening. PHYSICAL EXAMINATION: VITAL SIGNS: Temperature 37.2, heart rate 108, respirations 20, blood pressure 131/69, pulse oximeter 93% on 6 liters of oxygen by nasal cannula. The patient at the time of examination had heart rate of 103, respirations 20, blood pressure 112/52, pulse oximeter 98% on 6 liters of oxygen by nasal cannula. She is at 4 liters of oxygen by nasal cannula at home as a baseline. GENERAL: Alert and oriented to time, place, and person. Very pleasant 68-year-old, morbidly obese female, who is sitting upright at the bedside commode, as after IV Lasix, she has been basically having polyuria and the patient actually informs me that she has been feeling a little better with the shortness of breath since she has been here and is in no distress at all. HEENT: Normocephalic, atraumatic. Pupils are equally round, reactive to light. Conjunctivae clear. Sclerae nonicteric. Oropharynx clear. Mucous membranes moist. NECK: Supple, no JVD, no lymphadenopathy. HEART: S1, S2 irregularly irregular. Mild tachycardia noted. LUNGS: Occasional end-expiratory wheezes noted bilaterally, but symmetrical chest expansion present. No chest wall tenderness elicited. ABDOMEN: Soft, nontender, nondistended, well-healed scar of prior surgeries noted. EXTREMITIES: No edema to both lower extremities noted. NEUROLOGIC: Completely nonfocal. LABORATORY AND X-RAYS: The patient had a digoxin level of 0.2. WBC 2.8, hemoglobin 10.3, hematocrit 31.4, platelet count 137, MCV elevated at 104. The patient has segmented neutrophils 64%, otherwise differential is unremarkable. Chemistries indicate sodium 143, potassium 3.3, chloride 103, bicarbonate 37, anion gap 3, BUN 12, creatinine 0.6, estimated GFR 100, glucose 129, calcium 8.3, magnesium 1.6, total bilirubin 0.2, AST 11, ALT 10, alkaline phosphatase 50. BNP 1937, total protein 6.2, albumin 2.7. TSH 2.758. Chest x-ray was done and it indicates bilateral subsegmental areas of atelectasis/scarring and no focal consolidation noted. Electrocardiogram indicates atrial fibrillation with a prolonged QT interval. [address] [address] HISTORY AND PHYSICAL Name: GURDEEP GALLARDO Room #: [address] [place] [address] IN M.R.#: [id number] Admission: 12/30/18 Attend Phys: Renetta Lozano MD Discharge: 01/02/19 Date of : 52 Report #: [id number] ASSESSMENT AND PLAN: 1. Acute congestive heart failure exacerbation. 2. Pancytopenia. 3. Hypokalemia. 4. Hypomagnesemia. 5. Chronic obstructive pulmonary disease, compensated. 6. Chronic atrial fibrillation with chronic anticoagulation. 7. Morbid obesity with a BMI of 46.5. PLAN: 1. The patient's CHF exacerbation is likely secondary to: #1 running out of diuretics at home, #2 atrial fibrillation with a rate not controlled. The patient has stayed between 100-110 here in the hospital, would like to have a better control at the rate, but with a CHF exacerbation, the patient may have compromised absorption from gut as well. We will go ahead and continue IV Lasix and resume home medications except to avoid hypotension and keep MAP above 65-70. The patient is being admitted to CCU and will be monitored closely for daily weight and intake and output. 2. For pancytopenia as well as macrocytosis and long-term Depakote use, we will go ahead and diuretic panel as well as iron study, B12, and folate if they have not been done in last 3-4 months. If B12 is less than 600, then we will replace B12 as well as we will give B complex multivitamins. 3. Seizure disorder. We will continue Depakote. 4. For COPD, we will resume nebulizer treatment. 5. Anemia of chronic disease. We will do anemia workup and also send stool for Hemoccult. 6. Hypothyroidism. The patient is on 200 mcg of levothyroxine with a TSH of 2.758. Continue the same dose. 7. The patient follows with Dr. Deleon and the ER physician has already put a consult for acute CHF exacerbation. We will continue the same chronic anticoagulation. The patient is on Xarelto and we will go ahead and resume the same. There are some drug interaction between Xarelto and diltiazem and some other medications since the patient also had some QT prolongation, so we will review the medication and avoid any use of Zofran or Phenergan while we are still working up. Plan of care was discussed thoroughly with the patient. The patient wishes to be full code and for DVT prophylaxis already on Xarelto. For GI prophylaxis, we will put Pepcid. <ELECTRONICALLY SIGNED> By: Renetta Lozano MD 01/18/19 1014 1740 1852 MD gonzalez Brooks
== END 2019-01-02 16:13 | disposition home or self-care (01) | DRG 291 ==
LOC: ER 12:03 → 2N 15:10 → EROBS 15:10 → 2N 17:02
PROVIDERS: Emergency Medicine; ADMIT Internal Medicine
DX: I13.0 Hypertensive heart and chronic kidney disease with heart failure and stage 1 through stage 4 chronic kidney disease, or unspecified chronic kidney disease (principal); I50.33 Acute on chronic diastolic (congestive) heart failure; J96.10 Chronic respiratory failure, unspecified whether with hypoxia or hypercapnia; D61.818 Other pancytopenia; E44.1 Mild protein-calorie malnutrition; N18.3 Chronic kidney disease, stage 3 (moderate); I48.91 Unspecified atrial fibrillation; J44.9 Chronic obstructive pulmonary disease, unspecified; E03.9 Hypothyroidism, unspecified; E87.6 Hypokalemia; E83.42 Hypomagnesemia; G40.909 Epilepsy, unspecified, not intractable, without status epilepticus; D63.8 Anemia in other chronic diseases classified elsewhere; E66.01 Morbid (severe) obesity due to excess calories; I35.0 Nonrheumatic aortic (valve) stenosis; I49.5 Sick sinus syndrome; M19.90 Unspecified osteoarthritis, unspecified site; F31.9 Bipolar disorder, unspecified; Z83.3 Family history of diabetes mellitus; Z91.14 Patient's other noncompliance with medication regimen; Z79.01 Long term (current) use of anticoagulants; Z79.899 Other long term (current) drug therapy; Z95.0 Presence of cardiac pacemaker
CPT/HCPCS: 10081

== ENCOUNTER 2019-12-19 15:08 | Inpatient (IN) | payer OTHER ==
[~2019-12-19] VITALS: Ht 157.5 cm; Wt 104.3 kg
[~2019-12-19 15:08] MED LIST changes: +AMIODARONE HCL400 MG PO; +CALCIUM500 MG PO; +IRON159 MG PO; +LASIX 40 MG TAB40 MG PO; +PERFOROMIS20 MCG/2 M INH; +PROAIR HFA8.5 GM NEB; +TOPROL XL50 MG PO; +VENTOLIN HFA 1818 GM INH
[2019-12-19 15:11] VITALS: BP 145/57
[2019-12-19 16:57] LABS: MCH 26.9 pg (26.0-34.0); WBC 4.9 thou/uL (4.0-11.0)
[2019-12-19 16:59] LABS: MCHC 31.1 g/dL (28.0-37.0); MCV 86.5 fL (80.0-100.0); RBC 2.17 mil/uL (4.20-5.00); RDW 18.8 % (10.5-14.5)
[2019-12-19 17:06] LABS: HEMATOCRIT 18.8 % (37.0-47.0); HEMOGLOBIN 5.8 gm/dL (12.0-15.0)
[2019-12-19 17:08] LABS: ANION GAP 10 mmol/L (7-16); BUN 29 mg/dL (7-18); CALCIUM 8.7 mg/dL (8.5-10.1); CHLORIDE 100 mmol/L (98-107); CO2 29 mmol/L (21-32); CREATININE 0.8 mg/dL (0.6-1.0); GLUCOSE 136 mg/dL (74-106); POTASSIUM 4.9 mmol/L (3.5-5.1); SODIUM 139 mmol/L (136-145)
[2019-12-19 17:17] LABS: TROPONIN-I <0.06 ng/mL (<0.06)
[2019-12-19 18:09] LABS: INR 1.2; PROTIME 12.8 Seconds (9.3-11.4)
[2019-12-19 18:51] VITALS: BP 121/77
--- NOTE | 2019-12-19 20:02 | NUR ---
PATIENT ADMITTED FROM OR WITH RIGHT TOTAL KNEE REPLACEMENT, FARZANA DRESSING IN PLACE, KNEE HIGH PAVAN MOELLER, [facility]. PATIENT C/O PAIN WITH RIGHT KNEE, THIS RN GAVE HYDROCODONE 1 TABLET DURING ADMISSION. PATIENT ALERT AND ORIENTED X 4. AT BEDSIDE. ADMISSION COMPLETED. REPORT GIVEN TO COURTNEY/RN.
--- NOTE | 2019-12-19 21:07 | NUR ---
PATIENT ADMITTED FROM ER WITH SYMPTOMATIC ANEMIA, PATIENT ALERT AND ORIENTED X 4. PATIENT DENIES PAIN AT THIS TIME. PATIENT UP WITH ASSIST TO BSC. FALL PRECAUTIONS IN PLACE, PATIENT INSTRUCTED TO CALL FOR ASSISTANCE. ADMISSION COMPLETED, REPORT GIVEN TO AFSANEH/RN.
[2019-12-19 21:14] VITALS: BP 118/59
[2019-12-19 22:36] VITALS: BP 118/59
[2019-12-19 23:05] VITALS: BP 104/50; BP 111/67; BP 112/63; BP 116/65
--- NOTE | 2019-12-20 02:27 | NUR ---
ASSESSED AT START OF SHIFT. PT A&OX4. PT TO GET BLOOD. EDUCATION PROVIDED. VITALS STABLE. IV INTACT IN LEFT UA AND LEFT A/C SL. BLOOD TRANSFUSION INFUSED NO ADVERSE REACTION. PT UP WITH SBA TO THE BSC. FALL PREC IN PLACE AND CALL LIGHT IN REACH WILL CONT WITH POC TILL EOS. PT ON 4L OF 02 NASAL CANAL AND BASELINE AT HOME.
[2019-12-20 03:41] VITALS: BP 106/45
[2019-12-20 08:00] VITALS: BP 131/53
--- NOTE | 2019-12-20 08:37 | NUR ---
cm completed the initial assessment to discuss home situation and d/c plannning. pt is alert and oriented. pt stated she lives w/her son and DIL. There are no stairs in the home. pt stated she is semi-active, independent w/adls. no longer drives or works. pt has used [facility] in the past and would like for therapy, d/t back, knee and hip px. pt would like to use the same company. pt denies hx w/snf. pt has walker and home o2 and shower bench. pt has good familial support. cm to cont to follow.
--- NOTE | 2019-12-20 09:05 | NUR ---
baljinder faxed referral to [facility] . [phone].
[2019-12-20 10:00] VITALS: BP 123/60
[2019-12-20 10:10] VITALS: BP 112/54; BP 118/60; BP 120/58; BP 122/60
--- NOTE | 2019-12-20 11:08 | NUR ---
PATIENT COOPERATIVE AND IN A GOOD MODD TODAY. RATES PAIN 0/10 MOST OFTEN BUT HAS INTERMITTENT LOW BACK/RIGHT HIP/RIGHT KNEE PAIN THAT SHE RATES 8/10. A&OX4, 4L NASAL CANNULA, 1 UNIT BLOOD GIVEN AT 1015, VITALS STABLE. COLONOSCOPY AND EGD TOMORROW. SON AND DAUGHTER IN LAW TO VISIT TODAY POSSIBLY.
--- NOTE | 2019-12-20 11:26 | NUR ---
I have reviewed the student's documentation.
--- NOTE | 2019-12-20 11:50 | NUR ---
Assumed care of pt at 0700. Pt a&ox4. C/o rt hip pain. Provider aware. New order noted. 1 unit of bloos being infused for Hg 6.8. Will undergo EGD/colonoscopy tomorrow. Consent in chart. Will send covid test to lab. Faxed [facility] to obtain medical records. 4L O2. GI consulted. Call light within reach. Fall precautions in place. Will continue to monitor.
--- NOTE | 2019-12-20 14:26 | NUR ---
[facility] IS UNABLE TO ACCEPT PT D/T INSUR BEING OUT OF NETWORK. PT NOTIFIED OF THIS. PT HAS NO OTHER PREFERENCE. AMY SPK TO SUHAS AT [facility], PROVIDED PT INFO VIA PHONE. SUHAS TO F/U W/CM.
[2019-12-20 16:00] VITALS: BP 126/66
[2019-12-20 17:23] LABS: HEMATOCRIT 25.2 % (37.0-47.0); HEMOGLOBIN 8.2 gm/dL (12.0-15.0)
[2019-12-20 19:40] VITALS: BP 120/68
--- NOTE | 2019-12-21 01:55 | NUR ---
ASSESSED AT START OF SHIFT. PT A&O4. PT ON CLEAR LIQUID DIET DRINKING MIRALAX PREP FOR EGD/COLONOSCOPY TOMORROW. PT HAD 2 LARGE LIQUID BM AFTER PREP. NPO AT MIDNIGHT. PT ON 4L OF O2 NC. CALL LIGHT AT REACH AND WILL CONT WITH POC TILL EOS.
--- NOTE | 2019-12-21 14:09 | NUR ---
Assumed care of pt at 0700. NPO since midnight. Will undergo EGD/colonoscopy today. Consent signed. Dr. Will's office responded to request for medical records stating they have no record of patient. Denies pain. Call lighy within reach. Will continue to monitor.
[2019-12-21 15:45] VITALS: BP 115/55
[2019-12-21 16:30] VITALS: BP 117/95
[2019-12-21 22:30] VITALS: BP 108/63
--- NOTE | 2019-12-21 23:40 | NUR ---
1900 ASSUMED CARE OF PT AFTER BEDSIDE REPORT. 193 BASELINE ASSESSMENT COMPLETED, PT DENIES PAIN OR NAUSEA AT THIS TIME-BOWEL SOUNDS HYPERACTIVE X 4 QUADS, BM SINCE SCOPE. ABDOMEN SOFT TO PALPATION WITH NO TENDERNESS. PT IS AWAKE ALERT AND ORIENTED X 4, DENIES N/V, SOA, CHEST PAIN OR DIZZINESS. 2299 PT WITH COMPLAINTS OF PAIN IN RLQ OF ABDOMEN, ABDOMEN SOFT TO PALPATION WITH TENDERNESS TO RLQ, PT STATES SHE HAS FREQUENT "OVARY PAIN" AND THIS FEELS THE SAME, PAIN MED GIVEN PER MAY, WILL CONTINUE TO MONITOR
[2019-12-22 03:25] VITALS: BP 97/33
[2019-12-22 04:22] VITALS: BP 103/55
[2019-12-22 07:36] LABS: ABSOLUTE NEUTROPHILS 7.4 thou/uL (1.4-8.2); BASOPHILS 0.6 % (0.0-2.0); EOSINOPHILS 0.2 % (0.0-3.0); HEMATOCRIT 24.1 % (37.0-47.0); HEMOGLOBIN 7.6 gm/dL (12.0-15.0); LYMPHOCYTES 9.1 % (24.0-44.0); MCH 27.9 pg (26.0-34.0); MCHC 31.5 g/dL (28.0-37.0); MCV 88.6 fL (80.0-100.0); PLATELET COUNT 250 thou/uL (150-400); POLYS 80.1 % (36.0-66.0); RBC 2.72 mil/uL (4.20-5.00); WBC 9.3 thou/uL (4.0-11.0)
[2019-12-22 07:37] VITALS: BP 125/60
[2019-12-22 07:54] LABS: CALCIUM 8.3 mg/dL (8.5-10.1); CREATININE 0.8 mg/dL (0.6-1.0); POTASSIUM 4.7 mmol/L (3.5-5.1)
[2019-12-22 08:04] LABS: URINE BLOOD NEGATIVE (Negative); URINE CLARITY CLEAR; URINE COLOR YELLOW; URINE GLUCOSE-RANDOM* NEGATIVE (Negative); URINE KETONES TRACE (Negative); URINE LEUKOCYTES-REFLEX NEGATIVE (Negative); URINE NITRITE-REFLEX NEGATIVE (Negative); URINE PROTEIN (DIPSTICK) NEGATIVE (Negative)
[2019-12-22 08:08] LABS: ICTOTEST (BILI CONFIRMATORY) Negative (Negative); URINE BILIRUBIN NEGATIVE (Negative)
--- NOTE | 2019-12-22 10:56 | NUR ---
Nutrition: Assessed due to BMI > 40 (42.1 kg/m2 per CBW 230#). Admit with symptomatic anemia. S/p EGD/colonscopy on 12/20. Esophageal dilation done as pt reported intermittent dysphagia too. On a regular diet, but note hx CHF, HTN, pacemaker and COPD (severe O2 dependent). Heart healthy diet materials have been given x2 in the past (here ~1 yr ago and seen by RD 11/2018). Pt feels she has gained weight, but also reports her doctor will be going up on her lasix dosing. Likes to eat fresh, healthy foods, but [id number] buys the food and mainly chooses processed. Encouraged her to do the best she can, eat small portions, rinse canned vegetables, ask family to even buy canned tuna. Pt not currently mobile - recent hx hip and ankle problems/surgeries. Likely discharge soon. REC low sodium diet change. Low nutrition risk otherwise.
--- NOTE | 2019-12-22 11:03 | NUR ---
REC changing diet from regular to low sodium due to hx of CHF.
[2019-12-22 12:00] LABS: HYPOCHROMASIA 2+
[2019-12-22 12:01] LABS: ANISOCYTOSIS 2+; PLATELET ESTIMATE NORMAL
--- NOTE | 2019-12-22 12:53 | P ---
[facility] [address] [place] [address] PROCEDURE REPORT Name: GURDEEP GALLARDO Room #: 439-P ADM IN M.R.#: [id number] Admission: 12/19/19 Attend Phys: Tho Fernandez MD Discharge: Date of : 52 Report #: [id number] THIS REPORT FOR: cc: XOCHITL - No family physician/PCP XOCHITL - No family physician/PCP Jose Ogden MD ~ CC: [facility] physician/PCP Tho Fernandez MD PROCEDURE PERFORMED: Upper endoscopy with biopsies and esophageal dilation. HISTORY OF PRESENT ILLNESS: The patient is a 69-year-old female admitted with increasing shortness of breath, was noted to have significant anemia with hemoglobin of 5.8. She has now received 2 units of packed cells. Hemoglobin at this time is 8.2. The patient has been on Xarelto for history of AFib and previous pacemaker placement as well as congestive heart failure. The patient has a history of gastroesophageal reflux disease, also intermittent dysphagia, previous history of gastric bypass surgery, colonoscopy several years ago, reportedly with polyps at that time. The plan is for EGD and colonoscopy today. DESCRIPTION OF PROCEDURE: The risks and benefits of the procedure were explained to the patient, those risks including but not limited to bleeding, perforation and the risk of sedation. She understood these risks and gave informed consent. Sedation was given using propofol per anesthesia. Next, using a standard Olympus upper endoscope, the scope was placed in the patient's mouth and advanced under direct vision through the esophagus into the remaining stomach and then into the jejunum. The larynx was normal in appearance. The esophagus was normal throughout. The GE junction was normal. Upon entering the stomach, obvious surgical changes were noted consistent with a bypass. The gastric remnant was small, just a few centimeters in size. No evidence of ulcerations, erosions or gastritis. The surgical anastomosis was widely patent. I was able to advance the scope into the jejunum without difficulty. The mucosa was normal. Random biopsies were obtained to rule out celiac sprue. The scope was then brought back up into the remaining gastric pouch and a Savary guidewire was inserted through the scope, leaving the guidewire in place as the scope was then withdrawn. Next, a 48-[place] Savary dilation of the esophagus was then performed without difficulty. The wire and dilator removed. The scope was reintroduced into the patient's stomach. There was no evidence of mucosal tear after dilation. The scope was then withdrawn and the procedure terminated. The patient tolerated the procedure well. IMPRESSION: 1. Surgical changes consistent with gastric bypass. 2. Otherwise, normal upper endoscopy. RECOMMENDATIONS: [address] [address] PROCEDURE REPORT Name: GURDEEP GALLARDO Room #: 439-P [facility] IN M.R.#: [id number] Admission: 12/19/19 Attend Phys: Tho Fernandez MD Discharge: Date of : 52 Report #: [id number] 1. Await biopsy results. 2. Observe the patient post-dilation. 3. We will proceed with colonoscopy next today. Thank you for allowing me to participate in her care. <ELECTRONICALLY SIGNED> By: Jose Ogden MD 12/22/19 1253 1335 1553 Jose Ogden MD /nt
--- NOTE | 2019-12-22 12:53 | P ---
[facility] [place] [address] [place] [address] PROCEDURE REPORT Name: GURDEEP GALLARDO Room #: 439-P ADM IN M.R.#: [id number] Admission: 12/19/19 Attend Phys: Tho Fernandez MD Discharge: Date of : 52 Report #: [id number] THIS REPORT FOR: cc: XOCHITL - No family physician/PCP FAM - No family physician/PCP Jose Ogden MD ~ CC: [facility] physician/PCP Tho Fernandez MD DATE OF SERVICE: 12/21/2019 PROCEDURE PERFORMED: Colonoscopy with polypectomies and tattoo. HISTORY OF PRESENT ILLNESS: The patient is a 69-year-old female with generalized shortness of breath and weakness, admitted with significant anemia with hemoglobin of 5.8. She was transfused 2 units. Her hemoglobin now is 8.2. No obvious bright red blood per rectum or melena. Supposedly had a colonoscopy 2 years ago in which she was noted to have polyps. We do not have a copy of these records. Upper endoscopy was just performed, showed no signs of bleeding. Plan is for colonoscopy. DESCRIPTION OF PROCEDURE: The risks and benefits of the procedure were explained to the patient, those risks including but not limited to bleeding, perforation and the risk of sedation. She understood these risks and gave informed consent. Sedation was given using propofol per anesthesia. Next, a digital rectal exam was initially performed, which was normal. Next, using a standard Olympus colonoscope, the scope was placed in the patient's anus and advanced under direct vision to the cecum. The overall prep was good. In the cecum just above the appendiceal orifice was a 1.5 cm partially pedunculated polyp. This was removed by snare cautery. The edge of the polypectomy site was tattooed. Also noted in the cecum inside the appendiceal orifice was an adenomatous type polyp. Several biopsies were obtained. I did pull back on the tissue, was not able to remove this by snare cautery. Biopsies again were obtained. The ileocecal valve was normal. In the ascending colon, a 5 mm sessile polyp was removed by snare cautery. This was not retrieved; however, the descending colon was normal. Multiple small diverticula were noted in the sigmoid colon, no evidence of inflammation, otherwise normal. The rectal mucosa was normal. On retroflexion, small nonbleeding internal hemorrhoids were noted. The scope was then withdrawn and the procedure terminated. The patient tolerated the procedure well. IMPRESSION: 1. Large cecal polyp removed by snare debridement today as it was tattooed. 2. Adenomatous appearing change inside the appendiceal orifice, biopsies obtained. [address] [address] PROCEDURE REPORT Name: GURDEEP GALLARDO Room #: 439-P [facility] IN M.R.#: [id number] Admission: 12/19/19 Attend Phys: Tho Fernandez MD Discharge: Date of : 52 Report #: [id number] 3. Ascending colon polyp. 4. Sigmoid diverticulosis. 5. Small internal hemorrhoids. RECOMMENDATIONS: 1. Await biopsy results. 2. The patient will need a surgical resection of the appendix if biopsies show adenomatous change. 3. Etiology of her anemia is unclear. No signs of bleeding today; however, she did have a large polyp in the cecum, would recommend continuing to monitor hemoglobin. Oral iron and if anemia persists, may need to consider Hemoccult testing stools and further workup. Thank you for allowing me to participate in her care. <ELECTRONICALLY SIGNED> By: Jose Ogden MD 12/22/19 1253 1433 2146 Jose Ogden MD /nt
--- NOTE | 2019-12-22 14:16 | NUR ---
PT CARE ASSUMED AT 0700. A&Ox4. IV PATENT WITH NO REDNESS OR EDEMA, SALINE LOCKED. PT COMPLAINING OF RLQ PAIN, KUB ORDERED, SEE RESULTS. PT WILL DISCHARGE WITH CAB HOME SINCE THEY ARE ONLY A ONE CAR HOUSEHOLD. PT REFUSES FALL PROTOCOL. UP WITH WALKER. HOME O2 ON 4L. CALL LIGHT INACH. WILL CONTINUE TO MONITOR.
[2019-12-22 15:44] VITALS: BP 125/60
[2019-12-22 15:49] VITALS: BP 125/60
--- NOTE | 2019-12-22 15:53 | NUR ---
Pt dcing home today with robert. Orders faxed and confirmed with Oma MARTINEZ. Pt needing ride home via cab. Pt denies need for o2 on ride and indicates her dtr in law is at the house to let her in and put her home o2 on upon arrival. Nursing to take her to the ER entrance for a cab ride vouchered by baljinder.
--- NOTE | 2019-12-26 16:06 | PATH ---
[facility] [place] [address] PATHOLOGY RPT PROCEDURE Name: AC GALLARDO Room #: 439-P DIS IN M.R.#: [id number] Admission: 12/19/19 Date of : 52 Discharge: 12/22/19 Report #: [id number] Path Case #: [id number] [facility] Accession Number: [id number] . 01 Material submitted: . PART A: duodenum - RANDOM BIOPSY OF DUODENUM R/O SPRUE PART B: cecum - POLYP AT CECUM PART C: colon - POLYP AT APPENDICEAL ORIFICE . 01 Clinician provided ICD-10: K92.2 D50.0 . 01 Clinical history: . SYMPTOMATIC IRON DEFICIENCY ANEMIA, GI BLEED . 02 Diagnosis: A. Small bowel mucosa, duodenum rule out sprue, endoscopic biopsy: - No diagnostic abnormalities present. - Negative for villous blunting or increase in intraepithelial lymphocytes. . B. Polyp, at cecum, endoscopic biopsy: - Mature adipose tissue underneath mucosa, compatible with a submucosal angiolipoma. - Overlying mucosa showing reactive changes along with focal ulceration. - Negative for dysplasia. . C. 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 LBQ 12/23/2019 1411 Local . 02 Comment: Part C of this case was co-reviewed by Dr. Jacinto Olguin who concurs with my diagnosis. (IUV/db; 12/23/2019) . 02 Electronically signed: . Leni Carlton MD, Pathologist NPI- [id number] . 01 Gross description: . A. The specimen is received in formalin, labeled "Ac Gallardo, random biopsy of duodenum, R/O sprue". Received are four segments of pale rodas soft tissue ranging in size from 0.4 to 0.5 cm in maximum dimensions. The specimen is submitted entirely in cassette A1. . [facility] [address] [place] [address] PATHOLOGY RPT PROCEDURE Name: AC GALLARDO Room #: 439-P DIS IN M.R.#: [id number] Admission: 12/19/19 Date of : 52 Discharge: 12/22/19 Report #: [id number] Path Case #: [id number] B. The specimen is received in formalin, labeled "Ac Gallardo, polyp at cecum". Received are two segments of red-brown soft tissue measuring 0.7 x 0.7 x 0.4 and 2.0 x 1.3 x 1.3 cm in greatest dimensions. The surgical margins are inked. The smaller segment is bisected and entirely submitted in cassette B1. The larger segment is quadrisected and entirely spitted in cassettes B2 through B5. . C. The specimen is received in formalin, labeled "Ac Gallardo, polyp at appendiceal orifice". Received is a segment of pale rodas soft tissue measuring 0.4 cm in maximum dimensions. The specimen is submitted entirely in cassette C1. (CAA; 12/22/2019) QAC/QAC 12/22/2019 1053 Local . 02 Pathologist provided ICD-10: K63.3, D12.1, K92.2, D50.0 . 02 CPT . 464342, 851490, 647139 Specimen Comment: A courtesy copy of this report has been sent to [phone] Specimen Comment: [phone] Specimen Comment: Report sent to / DR MARTINEZ Performed at: [address], [place] [id number] MD Clifton Bardales MD Phone: [phone] Performed at: [address] [id number] MD Leni Carlton MD Phone: [phone]
== END 2019-12-22 16:39 | disposition home health service (06) | DRG 377 ==
LOC: ER 15:08 → EROBS 18:43 → 4S 18:43
PROVIDERS: Emergency Medicine; ADMIT Family Medicine; ATTEND Family Medicine
PROC: 0DBK8ZZ Excision of Ascending Colon, Via Natural or Artificial Opening Endoscopic (ICD-10-PCS; principal; 2019-12-21)
PROC: 0DBH8ZX Excision of Cecum, Via Natural or Artificial Opening Endoscopic, Diagnostic (ICD-10-PCS; principal; 2019-12-21)
PROC: 0D758ZZ Dilation of Esophagus, Via Natural or Artificial Opening Endoscopic (ICD-10-PCS; principal; 2019-12-21)
PROC: 30233N1 Transfusion of Nonautologous Red Blood Cells into Peripheral Vein, Percutaneous Approach (ICD-10-PCS; principal; 2019-12-21)
PROC: 0DBA8ZX Excision of Jejunum, Via Natural or Artificial Opening Endoscopic, Diagnostic (ICD-10-PCS; principal; 2019-12-21)
DX: K57.31 Diverticulosis of large intestine without perforation or abscess with bleeding (principal); I50.31 Acute diastolic (congestive) heart failure; J96.21 Acute and chronic respiratory failure with hypoxia; I11.0 Hypertensive heart disease with heart failure; D50.0 Iron deficiency anemia secondary to blood loss (chronic); I48.91 Unspecified atrial fibrillation; Z20.828 Contact with and (suspected) exposure to other viral communicable diseases; F31.9 Bipolar disorder, unspecified; J44.9 Chronic obstructive pulmonary disease, unspecified; E03.9 Hypothyroidism, unspecified; M19.90 Unspecified osteoarthritis, unspecified site; I25.10 Atherosclerotic heart disease of native coronary artery without angina pectoris; K21.9 Gastro-esophageal reflux disease without esophagitis; G40.909 Epilepsy, unspecified, not intractable, without status epilepticus; I49.5 Sick sinus syndrome; Z87.891 Personal history of nicotine dependence; Z99.81 Dependence on supplemental oxygen; Z86.010 Personal history of colon polyps; Z79.899 Other long term (current) drug therapy
CPT/HCPCS: 10195; 62110; 62900; 70005

== ENCOUNTER 2020-04-16 15:26 | Inpatient (IN) | payer OTHER ==
[~2020-04-16] VITALS: Ht 152.4 cm; Wt 96.9 kg
[2020-04-16 15:30] VITALS: BP 98/68
[2020-04-16 16:05] LABS: BASOPHILS 1.3 % (0.0-2.0); HEMATOCRIT 26.5 % (37.0-47.0); HEMOGLOBIN 7.9 gm/dL (12.0-15.0); LYMPHOCYTES 19.1 % (24.0-44.0); MCH 24.7 pg (26.0-34.0); MCHC 29.8 g/dL (28.0-37.0); PLATELET COUNT 245 thou/uL (150-400); POLYS 65.6 % (36.0-66.0); RBC 3.19 mil/uL (4.20-5.00); RDW 18.5 % (10.5-14.5); WBC 3.1 thou/uL (4.0-11.0)
[2020-04-16 16:10] LABS: CALCIUM 8.1 mg/dL (8.5-10.1); POTASSIUM 4.1 mmol/L (3.5-5.1)
[2020-04-16 16:14] LABS: INR 1.3; PROTIME 13.3 Seconds (9.3-11.4)
[2020-04-16 16:42] LABS: ANISOCYTOSIS 2+; HYPOCHROMASIA 2+
[2020-04-16 20:22] LABS: HEMATOCRIT 23.4 % (37.0-47.0); HEMOGLOBIN 7.1 gm/dL (12.0-15.0); MCH 25.4 pg (26.0-34.0); MCHC 30.4 g/dL (28.0-37.0); MCV 83.3 fL (80.0-100.0); RBC 2.81 mil/uL (4.20-5.00); RDW 18.7 % (10.5-14.5); WBC 2.7 thou/uL (4.0-11.0)
[2020-04-16 23:12] VITALS: BP 100/65; BP 92/59
[2020-04-17] VITALS (8 sets, daily range): BP systolic 100–144; BP diastolic 41–85
--- NOTE | 2020-04-17 03:51 | NUR ---
Pt is an ER admit. Pt is admitted with anemia, dyspenia on exertion. Pt is currently on 4L. Admission assessment and education, plan of care completed. No sign of distress noted in pt. Pt is currently NPO. Denies any pain. No acute events overnight. Continue to monitor. No further needs at this time.
--- NOTE | 2020-04-17 10:36 | 2DMMODE ---
[facility] [place] [address] [place] [address] 2 D/M-MODE ECHOCARDIOGRAM Name: SAMIGURDEEP ZACHARY Room #: 208-P ADM IN M.R.#: [id number] Admission: 04/16/20 Attend Phys: Tho Fernandez MD Discharge: Date of : 52 Report #: [id number] THIS REPORT FOR: cc: XOCHITL - [place] family physician/PCP XOCHITL - No family physician/PCP Tramaine Ward MD [facility] ~ ADDENDUM APPROVED REPORT Study performed: 04/17/2020 08:56:46 EXAM: Comprehensive 2D, Doppler, and color-flow Echocardiogram Patient Location: Bedside Room #: 208 Status: routine BSA: 2.00 HR: 77 bpm BP: 107/41 mmHg Rhythm: NSR Other Information Study Quality: Good Indications Aortic Valve Disease COPD Pulmonary Hypertension Atrial Fibrillation Pacemaker 2D Dimensions RVDd: 42.37 mm IVSd: 8.13 (7-11mm) LVOT Diam: 18.69 (18-24mm) LVDd: 53.32 mm PWd: 8.37 (7-11mm) Ascending Ao: 30.65 (22-36mm) LVDs: 36.81 (25-40mm) Aortic Root: 29.79 mm IVC: 31.00 mm Volumes Left Atrial Volume (Systole) Single Plane 4CH: 86.09 mL Single Plane 2CH: 80.60 mL LA ESV Index: 46.00 mL/m2 Aortic Valve AoV Peak Nir.: 2.40 m/s [facility] [address] [address] 2 D/M-MODE ECHOCARDIOGRAM Name: GURDEEP GALLARDO Room #: 208-P [facility] IN ..#: [id number] Admission: 04/16/20 Attend Phys: Tho Fernandez, Discharge: Date of : 52 Report #: [id number] AO Peak Gr.: 23.12 mmHg LVOT Max P.06 mmHg AO Mean Gr.: 14.04 mmHg LVOT Mean P.05 mmHg AO V2 Mean: 1.75 m/s LVOT Max V: 1.01 m/s AO V2 VTI: 53.40 cm LVOT Mean V: 0.66 m/s JEFRY (VTI): 1.18 cm2 LVOT V1 VTI: 23.04 cm JEFRY Vmax: 1.15 cm2 SV (LVOT): 63.16 mL Mitral Valve E/A Ratio: 2.6 MV Decel. Time: 162.55 ms MV E Max Nir.: 1.19 m/s MV A Nir.: 0.46 m/s MV PHT: 47.14 ms IVRT: 55.36 ms Pulmonary Valve PV Peak Nir.: 1.26 m/s PV Peak Gr.: 6.31 mmHg Pulmonary Vein P Vein S: 0.51 m/s P Vein A: 0.18 m/s P Vein D: 0.86 m/s P Vein A Dur.: 110.7 msec P Vein S/D Ratio: 0.59 Tricuspid Valve TR Peak Nir.: 4.04 m/s TR Peak Gr.: 65.32 mmHg PA Pressure: 75.00 mmHg Left Ventricle The left ventricle is normal size. There is normal LV segmental wall motion. There is normal left ventricular wall thickness. The left ventricular systolic function is normal. The left ventricular ejection fraction is within the normal range. LVEF is 55-60%. The diastolic function is abnormal. Right Ventricle Right ventricle is at the upper limits of normal. The right ventricular systolic function is normal. Pacemaker lead is present in the right ventricle. Atria Left atrium is dilated. Right atrium is dilated. Aortic Valve The aortic valve is normal in structure. Aortic valve is calcified. [facility] [address] [place] [address] 2 D/M-MODE ECHOCARDIOGRAM Name: GURDEEP GALLARDO Room #: 208-P [facility] IN [facility]#: [id number] Admission: 04/16/20 Attend Phys: Tho Fernandez, Discharge: Date of : 52 Report #: [id number] No aortic regurgitation is present. Mild aortic stenosis. Mitral Valve The mitral valve is normal in structure. There is mitral annular calcification. Mild mitral regurgitation. No evidence of mitral valve stenosis. Tricuspid Valve The tricuspid valve is normal in structure. There is moderate tricuspid regurgitation. Estimated PAP 75 mmHg. There is severe pulmonary hypertension. Pulmonic Valve The pulmonary valve is normal in structure. There is no pulmonic valvular regurgitation. Great Vessels The aortic root is normal in size. IVC is dilated and collapses <50% with inspiration. Pericardium There is no pericardial effusion. <Conclusion> Normal left ventricular size/wall thickness Ejection fraction 55% Grade 1 diastolic dysfunction Normal right ventricular size Moderately dilated right/left atrium Color-flow Doppler study was performed of the aortic/mitral/tricuspid/pulmonary valve Mild aortic valve calcification Mild aortic valve stenosis, mean gradient 14 mmHg Mild mitral valve insufficiency Moderate tricuspid valve insufficiency Severe pulmonary hypertension, PA pressure systolic estimated 75 mmHg No pericardial effusion <ELECTRONICALLY SIGNED> By: Tramaine Ward MD, FACC 04/17/206 35 35 Tramaine Ward MD, FACC /INF
[2020-04-17 12:31] LABS: BE(vivo) 2.3 mmol/L (-2 to +3); HCO3 29.2 mmol/L (22.0-26.0); PCO2 58.8 mmHg (35.0-45.0); PO2 91.1 mmHg (80.0-100.0); sO2 96.1 % (92.0-98.0)
[2020-04-17 12:32] LABS: pH 7.314 (7.360-7.450)
[2020-04-18 05:00] VITALS: BP 116/51
--- NOTE | 2020-04-18 07:18 | EKG ---
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 : 1950 Requested By: Ayleen Simmons Order Number: [id number] MD: Tramaine Ward Measurements Intervals [place] Rate: 112 P: DE: QRS: 10 QRSD: 90 T: 222 QT: 316 QTc: 432 Interpretive Statements Atrial fibrillation Low voltage, precordial leads Nonspecific repol abnormality, diffuse leads Compared to ECG 01/01/2019 06:56:11 Early repolarization now present Electronically Signed On 04-18-2020 7:17:51 [employer] by Tramaine Ward [email or web address] <ELECTRONICALLY SIGNED> By: Tramaine Ward MD, [facility] 04/18/20 0717 34 34 Tramaine Ward MD, FAC /EPI
[2020-04-18 07:59] VITALS: BP 141/79
--- NOTE | 2020-04-18 08:13 | NUR ---
ASSUME CARE 1900. PT/VITALS STABLE. INTERMITTENT GENERALIZED PAIN NOTED. MOD TOLERANCE TO ACITIVITY. PT EXTREMELY WINDED WITH ACTIVITY. ON 4LNC SATS MID 90s. NO DISTRES NOTED THROUGH THE NIGHT. MODERATE REST NOTED. PLAN IS TO CONTINUE TO MONITOR AND MANAGE RESP FUNCTION AND CLEAR PT FOR POLYP REMOVAL. WILL CONTINUE TO MONITOR AND FOLLOW WITH POC
[2020-04-18 12:03] VITALS: BP 99/47
[2020-04-18 15:09] VITALS: BP 127/52
[2020-04-18 15:53] LABS: HEMATOCRIT 29.2 % (37.0-47.0); HEMOGLOBIN 8.6 gm/dL (12.0-15.0); MCH 25.6 pg (26.0-34.0); MCHC 29.5 g/dL (28.0-37.0); MCV 86.5 fL (80.0-100.0); RBC 3.38 mil/uL (4.20-5.00); RDW 18.4 % (10.5-14.5); WBC 5.1 thou/uL (4.0-11.0)
[2020-04-18 19:45] VITALS: BP 120/42
[2020-04-18 22:04] LABS: BE(vivo) 0.9 mmol/L (-2 to +3); HCO3 29.4 mmol/L (22.0-26.0); PO2 81.6 mmHg (80.0-100.0); sO2 93.5 % (92.0-98.0)
[2020-04-18 22:05] LABS: PCO2 71.5 mmHg (35.0-45.0); pH 7.232 (7.360-7.450)
--- NOTE | 2020-04-18 22:31 | NUR ---
DUPLICATING MACHINE MECHANIC called for increased shortness of air. See DUPLICATING MACHINE MECHANIC flowsheet.
[2020-04-18 23:25] LABS: BE(vivo) 5.2 mmol/L (-2 to +3); HCO3 34.5 mmol/L (22.0-26.0); PO2 126.9 mmHg (80.0-100.0); sO2 97.7 % (92.0-98.0)
[2020-04-18 23:26] LABS: PCO2 85.8 mmHg (35.0-45.0); pH 7.222 (7.360-7.450)
[2020-04-18 23:46] VITALS: BP 113/53
--- NOTE | 2020-04-19 02:59 | NUR ---
ASSUMED PT CARE AT AROUND 1900, PT IS AWAKE, ALERT AND ORIENTEDX4, PT EXTREMELY BECOMES SOA AND SO RESTLESS, O2 SATS IN THE 70S, BOBBIN PRESSER CALLED, BREATHING TX GIVEN BY RT, ABG BLODD GAS ORDERED, LASIX AND CHEST XRAY ORDERED, CRITICAL RESULTS ABGS CALLED TO THE PHYSICIAN, ORDERS RECEIVED FOR BIPAP, AND REPEAT ABGS AN HR POST INITIATION OF BIPAP, CRITICAL ABGS CALLED TO THE PHYSICIAN, NO ORDERS RECEIVED, PT IS RESTING AT THIS MOMENT WITH NO SIGNS OF DISTRESS, O2SAT 98%, SNYDER CATHETER INSERTED AND IV LASIX GIVEN, WILL CONTINUE TO MONITOR
[2020-04-19 03:43] VITALS: BP 102/55
[2020-04-19 04:57] LABS: HEMATOCRIT 27.1 % (37.0-47.0); HEMOGLOBIN 8.2 gm/dL (12.0-15.0); MCH 25.9 pg (26.0-34.0); MCHC 30.4 g/dL (28.0-37.0); MCV 85.3 fL (80.0-100.0); RBC 3.17 mil/uL (4.20-5.00); RDW 18.1 % (10.5-14.5); WBC 4.9 thou/uL (4.0-11.0)
[2020-04-19 05:07] LABS: ALBUMIN 2.8 g/dL (3.4-5.0); CALCIUM 8.2 mg/dL (8.5-10.1); CREATININE 0.9 mg/dL (0.6-1.0); MAGNESIUM 1.7 mg/dL (1.8-2.4); PHOSPHORUS 5.3 mg/dL (2.5-4.9); POTASSIUM 4.5 mmol/L (3.5-5.1)
[2020-04-19 08:00] LABS: BE(vivo) 11.3 mmol/L (-2 to +3); HCO3 40.8 mmol/L (22.0-26.0); PO2 205.9 mmHg (80.0-100.0); sO2 99.1 % (92.0-98.0)
[2020-04-19 08:03] LABS: PCO2 95.4 mmHg (35.0-45.0); pH 7.249 (7.360-7.450)
[2020-04-19 08:13] VITALS: BP 114/45
--- NOTE | 2020-04-19 08:30 | NUR ---
based on abg results and new consult, call placed to Dr. Olivia. rn spoke with Mary at the office.
--- NOTE | 2020-04-19 09:16 | NUR ---
Dr. Deleon present to see pt.
--- NOTE | 2020-04-19 09:30 | NUR ---
detailed message on cell phone left for Dr. Olivia regarding abg's with ph- 7.429, elevated pco2-95.4 with pt resting when undisturbed then alert/oriented when awake. administering lasix, surgery cancelled for tomorrow.
[2020-04-19 11:28] VITALS: BP 106/54
--- NOTE | 2020-04-19 14:45 | NUR ---
Dr. Olivia present to see pt and updated on her status. she is awake at this time, conversing with staff and talking about her cell phone.
[2020-04-19 15:00] VITALS: BP 97/45
--- NOTE | 2020-04-19 16:37 | NUR ---
met with patient who admits with rectal bleed. Patient was to have colectomy however due to resp status cancelled. Dr Olivia and Dr Deleon consulted. Patient has BIPAP on and it is difficult to communicate with her. Patient resides with son/dtr in law and dtr in laws nephew. She has 4 dogs and 3 cats. She has home oxygen usu at 3 liters. she does not have a BIPAP at home. Plan to visit with patient as difficult for her to carry on more conversation.
[2020-04-19 19:43] VITALS: BP 109/46
[2020-04-19 20:31] LABS: BE(vivo) 5.9 mmol/L (-2 to +3); HCO3 33.2 mmol/L (22.0-26.0); PO2 94.2 mmHg (80.0-100.0); sO2 96.4 % (92.0-98.0)
[2020-04-19 22:03] LABS: pH 7.319 (7.360-7.450)
[2020-04-19 23:22] VITALS: BP 107/48
[2020-04-20 03:48] VITALS: BP 102/52
--- NOTE | 2020-04-20 05:14 | NUR ---
DES ASSUMED AT 1900. ALERT AND ORIENTED. DENIES PAIN, CHEST DISCOMFORT, NAUSEA OR VOMITING. NO FEVER. PT MAINTAINED ON BIPAP OVERNIGHT. ABG LAST NIGHT COMMUNICATED TO DR. LONGORIA BY RT. WILL CONTINUE WITH POC.
[2020-04-20 08:10] VITALS: BP 90/46
[2020-04-20 08:24] LABS: BE(vivo) 10.6 mmol/L (-2 to +3); HCO3 37.6 mmol/L (22.0-26.0); PO2 62.8 mmHg (80.0-100.0); sO2 90.3 % (92.0-98.0)
[2020-04-20 09:52] LABS: ANION GAP < 0 mmol/L (7-16); BUN 17 mg/dL (7-18); CALCIUM 8.4 mg/dL (8.5-10.1); CHLORIDE 99 mmol/L (98-107); CO2 39 mmol/L (21-32); CREATININE 0.6 mg/dL (0.6-1.0); GLUCOSE 97 mg/dL (74-106); POTASSIUM 4.3 mmol/L (3.5-5.1); SODIUM 137 mmol/L (136-145)
[2020-04-20 11:55] VITALS: BP 109/55
[2020-04-20 16:15] VITALS: BP 102/54
--- NOTE | 2020-04-20 16:47 | NUR ---
ASSUMED CARE AT CHANGE OF SHIFT. BIPAP STOPPED WITH PATIENT TOLERATING 5L NASAL CANNULA. DENIES PAIN. SURGERY CANCELED. HEART HEALTHY DIET STATED WITH [address] SNYDER IN PLACE. BM TODAY. CALLS FOR ASSISTANCE.
[2020-04-20 19:22] VITALS: BP 135/49
[2020-04-20 23:55] VITALS: BP 109/49
[2020-04-21 03:54] VITALS: BP 107/58
--- NOTE | 2020-04-21 03:59 | NUR ---
CARE ASSUMED 1900. PT MORE AWAKE ALERT AND ORIENTED. OFF BIPAP AT THE BEGINNING OF THE SHIFT, TOLERATING 5L NC , WITH SATs > 91. DENIES PAIN, NAUSEA OR CHEST DISCOMFORT. NO FEVER. PT PUT ON BIPAP ABOUT 2300. TOLERATED BIPAP OVERNIGHT. PT REMAINS WHEEZY AND COURSE IN ALL LUNG DREW. WILL CONITNUE TO MONITOR AND FOLLOW POC.
[2020-04-21 07:30] VITALS: BP 126/47
[2020-04-21 09:26] LABS: HEMATOCRIT 25.7 % (37.0-47.0); HEMOGLOBIN 7.9 gm/dL (12.0-15.0); MCHC 30.9 g/dL (28.0-37.0); MCV 84.3 fL (80.0-100.0); RBC 3.05 mil/uL (4.20-5.00); RDW 18.1 % (10.5-14.5); WBC 3.2 thou/uL (4.0-11.0)
[2020-04-21 09:43] LABS: CALCIUM 8.2 mg/dL (8.5-10.1); CREATININE 0.9 mg/dL (0.6-1.0); POTASSIUM 4.1 mmol/L (3.5-5.1)
[2020-04-21 11:50] VITALS: BP 114/45
[2020-04-21 16:10] VITALS: BP 99/48
--- NOTE | 2020-04-21 16:40 | NUR ---
ASSUMED CARE AT CHANGE OF SHIFT. A/OX4, FROM HOME. BIPAP AT NIGHT. PLACED ON 5L NASAL CANNULA 7AM. PT DESATS EASILY WITH EXERTION. CHEST XRAY TODAY SEE REPORT. PER DR HADDAD NOTE, PT WILL DC IN 2 DAYS WILL NEED TO RECOVER BEFORE HAVING SURGERY. PT INDICATED SHE WILL HAVE MINIMAL HELT AT HOME AND WOULD BE INTERESTED IN REHAB HOWEVER NOT THE ONE SHE WENT TO PRIOR. MIN ASSIST WITH WALKER.SNYDER IN PLACE. NO BM NOTED AT THIS TIME. CALL LIGHT AND PERSONAL ITEMS IN REACH.
[2020-04-21 20:29] VITALS: BP 123/4
--- NOTE | 2020-04-22 04:28 | NUR ---
CARE ASSUMED 1900. PT ALERT AND ORIENTED. PT CONTINUE TO EXPERIENCE RESP DISTRESS/ SOB. DENIES CHEST PAIN NAUSEA OR VOMITING. OVERNIGHT , PT WAS SCHEDULED TO BE MAINTAINED ON BIPAP BUT REPORTS THE NEW BIPAP WASNT TOLERABLE AND BLOWING COLD AIR. R NOTIFIED TO ADJUST SETTING BUT PT REFUSED STATING SHE JUST WANTED TO TRY ON NASAL CANNULA. PT WAS IN NC 5L UNTIL 0430 WHEN OT SATs DROPPED IN 80s ON 5L. PT LUNGS SOUNDS REMANIN COURSE AND WHEEZY. O2 TITRATED TO 7L WITH SATs OF 96%. WILL CONTINUE TO MONITOR AND FOLLOW POC.
[2020-04-22 04:45] VITALS: BP 127/57
[2020-04-22 07:45] VITALS: BP 122/46
[2020-04-22 09:26] LABS: HEMATOCRIT 28.8 % (37.0-47.0); HEMOGLOBIN 8.8 gm/dL (12.0-15.0); MCHC 30.5 g/dL (28.0-37.0); MCV 85.4 fL (80.0-100.0); RBC 3.37 mil/uL (4.20-5.00); WBC 3.3 thou/uL (4.0-11.0)
[2020-04-22 09:34] LABS: CALCIUM 8.5 mg/dL (8.5-10.1); CREATININE 0.8 mg/dL (0.6-1.0); POTASSIUM 4.4 mmol/L (3.5-5.1)
[2020-04-22 11:10] VITALS: BP 124/51
--- NOTE | 2020-04-22 12:57 | NUR ---
ASSUMED CARE AT CHANGE OF SHIFT. SLEEPY/DROWSY EASILY AWAKENS. PT REMAINS ON 7L NASAL CANNULA. DESATS WITH ADL'S. UNABLE TO PARTICIPATE WITH THEARPY DUE TO SOA AND DESATS. LUNGS DEMINISHED, COURSE, WITH AUTABLE WHEEZED. NEW ORDER FROM DR MARTINEZ FOR 1X LASIX, STARTED ON IV STEROIDS AND PRN MUCINEX. CRITICAL DIGOXIN REPORTED TO BOTH DR MARTINEZ AND DR NIEVES, DIGOXIN DC'S. DR MARTINEZ INFORMED PRIMARY RN THAT PT IS AGREEABLE TO USES BIPAP AT NIGHT AND WILL DC TO REHAB ONCE MEDICALLY STABLE. SNYDER TO REMAIN IN PLACE BM TODAY. CALL LIGHT AND PERSONAL ITEMS IN REACH. CONTINUE TO PROVED OVERSIGHT TO ANTICIPATE PT NEEDS.
[2020-04-22 16:19] VITALS: BP 119/42
[2020-04-22 20:03] VITALS: BP 108/37
[2020-04-23 03:56] VITALS: BP 121/50
--- NOTE | 2020-04-23 06:17 | NUR ---
ASSUME CARE 1900. PT/VITALS STABLE. INTERMITTENT GENERALIZED PAIN.INDICATED WITH MODERATE RELIEF FROM PAIN MEDS. VERY POOR TOLERANCE TO ACTIVITY DUE TO EXTREME SOB WITH MILD EXERTION. ASSESSMENT CHARTED. PROGRESSING VERY SLOWLY WITH POC. PAVED ON MONITOR WITH CO NTROLLED HR. ON 6LNC WITH SATS AT 95-98%. PT DESAT WITH CPAP ALL THROUGH AND SEEMS TO DO BETTER ON 6LNC. PLAN IS TO CONTINUE WITH BREATHING TREATMENTS/STEROID THERAPY/DIURESING PT TO IMPROVE RESP FUNCTION. PT/OT FOR ASSISTNACE WITH ACTIVITY RESP FUNCTION PERMITS. WILL CONTINUE TO MONITOR AND FOLLOW WITH POC
[2020-04-23 07:45] VITALS: BP 123/65
--- NOTE | 2020-04-23 07:45 | EKG ---
[place] [address] [address] [place] [employer] [place] [address] ELECTROCARDIOGRAM REPORT Name: GURDEEP GALLARDO Room #: 208-P ADM IN M.R.#: [id number] Admission: 04/16/20 Attend Phys: Tho eFrnandez MD Discharge: Date of : 52 Report #: [id number] [facility] Test Date: 2020-04-22 Test Time: 10:28:06 Pat Name: GURDEEP GALLARDO Department: Room: 208 P Gender: F Children'S Minister: TYLER : 1950 Requested By: Tho Fernandez Order Number: [id number] MD: Tramaine Ward Measurements Intervals [place] Rate: 70 P: [place]: 263 QRS: 41 QRSD: 98 T: 196 QT: 525 QTc: 567 Interpretive Statements Atrial-paced complexes Prolonged [place] interval RSR' in V1 or V2, probably normal variant Abnormal T, consider ischemia, lateral leads Prolonged QT interval Compared to ECG 04/16/2020 19:35:20 First degree AV block now present RSR' in V1 or V2 now present T-wave abnormality now present Prolonged QT interval now present Atrial fibrillation no longer present Early repolarization no longer present Electronically Signed On 04-23-2020 7:45:07 CLINICAL TEAM LEAD by Tramaine Ward [email or web address] <ELECTRONICALLY SIGNED> By: Tramaine Ward MD, [facility] 04/23/20 0745 1028 1028 Tramaine Ward MD, [facility] /EPI
[2020-04-23 09:27] LABS: BUN 24 mg/dL (7-18); CHLORIDE 96 mmol/L (98-107); GLUCOSE 202 mg/dL (74-106); POTASSIUM 5.1 mmol/L (3.5-5.1); SODIUM 140 mmol/L (136-145)
[2020-04-23 09:29] LABS: CO2 > 45 mmol/L (21-32)
[2020-04-23 11:28] LABS: BE(vivo) 14.2 mmol/L (-2 to +3); HCO3 41.9 mmol/L (22.0-26.0); PCO2 74.4 mmHg (35.0-45.0); PO2 76.1 mmHg (80.0-100.0); pH 7.368 (7.360-7.450); sO2 94.2 % (92.0-98.0)
[2020-04-23 11:35] VITALS: BP 124/47
[2020-04-23 15:15] VITALS: BP 116/43
--- NOTE | 2020-04-23 15:26 | NUR ---
Nutrition: pt admitted with anemia and slow GIB with mass. Seen for LOS. PMH: HTN, bipolar, COPD, CHF, DJD, colon mass. Of available intake records, po has been fair to good. Missing last several days and pt not too forthcoming about % intake of meals. States "Some I eat, some I dont". No weight changes. BMI 43 extreme class 3 obesity. Pt is familiar with low sodium diet guidelines and follow weights for fluid changes. Surgery following and plan for partial colectomy when respiratory status is stable. RD obtained food preferences and assisted pt with ordering dinner. Consider low nutrition risk at this time.
--- NOTE | 2020-04-23 19:43 | NUR ---
RECEIVED PT'S CARE AROUND 0740; PT. ON BED; ALERT; DURING AM ASSESSMENT PT. AOX4; NO C/O PAIN; AM MEDICATIONS GIVEN; UP TO CHAIR WITH PT AND OT; PER OT AND OT PT. ABLE TO TOLERATED EXERTION; NO C/O SOB; CRITICAL LAB; CO2; DR. MARTINEZ AND DR. LONGORIA NOTIFIED; ORDERS RECEIVED; ABG BLOOD GAS PERFORMED BY RT; RESULTS NOTIFIED TO DR. LONGORIA; PER DR. VON CHAMBERS PT. ON NC; LEHR ATTENDANT [facility]; BACK TO BED AFTER DINNER; NOTICED CONSENT FOR PROCEDURE ON PT'S CHART; NO NOTIFICATION OF PHYSICIAN TO LEHR ATTENDANT; PASSED ON REPORT; SUGGESTED NPO AT MIGHT NIGHT FOR POSSIBLE PROCEDURE; APACED ON THE MONITOR; ASSESSMENT CHARGED; FOLLOWING POC; PASSED ON REPORT;
[2020-04-23 20:45] VITALS: BP 110/55; BP 115/55
--- NOTE | 2020-04-24 04:24 | NUR ---
CARE ASSUMED 1900. PT ALERT AND ORIENTED. VITALS TABLE , DENIES PAIN. KEPT NPO SINCE 0000 FOR POSSIBLE SURGERY TODAY. MAINTAINED ON BIPAP OVERNIGHT, BUT PATIENT HAS EXTENSIVE SLEEP APNEA, PERIODICALLY DESATS INTO 80s, O2 THROUGH THE BIPAP TURNED TO 15 L. NO OTHER EVENTS OVERNIGHT. WILL CONTINUE TO ASSESS PT RESP. STATUS AND FOLLOW POC.
[2020-04-24 04:39] VITALS: BP 81/33
[2020-04-24 07:55] VITALS: BP 114/52
[2020-04-24 08:11] LABS: BE(vivo) 15.7 mmol/L (-2 to +3); HCO3 44.9 mmol/L (22.0-26.0); PO2 65.2 mmHg (80.0-100.0); sO2 89.1 % (92.0-98.0)
[2020-04-24 08:12] LABS: PCO2 93.2 mmHg (35.0-45.0); pH 7.301 (7.360-7.450)
[2020-04-24 09:02] LABS: HEMOGLOBIN 8.6 gm/dL (12.0-15.0); MCH 26.3 pg (26.0-34.0); MCHC 30.6 g/dL (28.0-37.0); MCV 86.1 fL (80.0-100.0); RBC 3.26 mil/uL (4.20-5.00); RDW 19.5 % (10.5-14.5); WBC 3.9 thou/uL (4.0-11.0)
--- NOTE | 2020-04-24 09:04 | NUR ---
RECEIVED CRITICAL ABG VALUES FROM RT. PT pH 7.3, pCO2 93. DR MARTINEZ CONSULTED. DR BILLY CONSULTED. RT CONSULTED.
[2020-04-24 09:08] LABS: BUN 32 mg/dL (7-18); CALCIUM 8.5 mg/dL (8.5-10.1); CHLORIDE 97 mmol/L (98-107); CREATININE 0.7 mg/dL (0.6-1.0); GLUCOSE 178 mg/dL (74-106); POTASSIUM 5.2 mmol/L (3.5-5.1); SODIUM 142 mmol/L (136-145)
[2020-04-24 09:13] LABS: CO2 > 45 mmol/L (21-32)
[2020-04-24 11:50] VITALS: BP 118/52
[2020-04-24 15:55] VITALS: BP 115/60
--- NOTE | 2020-04-24 17:13 | NUR ---
Patient on nasal cannula oxygen. She reports she DOES NOT have a Bipap at home. She was able to work with therapy today. Son/dtr in law, children and a friend live in home. She has dogs and cats. She reports the dog pushes her bedroom door open and cat sleeps by her. She belives this is causing some of her respitory distress. She is in process of speaking to her son regarding fixing her bedroom door. Patient reports she rec SS, her food stamps have been cut back, dtr in law lost her job at [employer] and son is a certified personal chef and has lost his job, Patient reports increase stress at home. Patient unsure if plan for sx. Patient to cont to work with therapy to determine dc planning.
--- NOTE | 2020-04-24 18:34 | NUR ---
PT IS ALERT AND ORIENTED X4, PLEASANT. PT HAD CHEST XRAY IN AM. CRITICAL ABG LAB VALUES IN AM. DR MARTINEZ CONSULTED, DR BILLY CONSULTED. RT CONSULTED. PT IS ASYMPTOMATIC FOR ELEVATED CO2, ELEVATED CARBON DIOXIDE. POC IS CONTINUE TO MONITOR PT O2 SATURATION; PT CURRENTLY WEARING 6L NC O2; AUTOMATIC BIPAP AT NIGHT, O2 SAT BTWN 88-92% PER DR BILLY. PT/OT CONSULTED. FALL PRECAUTIONS IN PLANS. PT FAMILY CALLED AND UPDATED. NO CONCERNS AT THIS TIME.
[2020-04-24 20:36] VITALS: BP 114/57
[2020-04-25 05:20] LABS: HEMATOCRIT 27.1 % (37.0-47.0); HEMOGLOBIN 8.4 gm/dL (12.0-15.0); MCH 26.4 pg (26.0-34.0); MCV 85.1 fL (80.0-100.0); RBC 3.19 mil/uL (4.20-5.00); RDW 19.5 % (10.5-14.5); WBC 3.9 thou/uL (4.0-11.0)
[2020-04-25 05:30] VITALS: BP 111/62
[2020-04-25 05:36] LABS: BUN 35 mg/dL (7-18); CALCIUM 8.6 mg/dL (8.5-10.1); CHLORIDE 97 mmol/L (98-107); CREATININE 0.8 mg/dL (0.6-1.0); GLUCOSE 174 mg/dL (74-106); POTASSIUM 4.7 mmol/L (3.5-5.1); SODIUM 142 mmol/L (136-145)
[2020-04-25 06:03] LABS: CO2 > 45 mmol/L (21-32)
[2020-04-25 07:34] VITALS: BP 112/53
--- NOTE | 2020-04-25 08:21 | NUR ---
ASSUMMED PT CARE AT THE CHANGE OF SHIFT, ALERT AND ORIENTED, APACED ON THE MONITOR, BIPAP AT NIGHT, NO DISTRESS NOTED, ASSESSMENTS CHARTED, DENIES PAIN OR SOB, FREQUENT ROUNDING ON THE PATIENT, PASSED ON REPORT
--- NOTE | 2020-04-25 10:36 | NUR ---
PT. ON NASAL CANNULA AND GOT UP THIS AM TO WORK WITH PT/OT, AMBULATED ON UNIT WITH OXYGEN FAIRLY WELL AND SOMEWHAT STEADY. DENIES ANY CHEST PAIN BUT IS REPORTING CHRONIC HIP PAIN.
[2020-04-25 11:15] VITALS: BP 104/48
--- NOTE | 2020-04-25 14:16 | NUR ---
LONG CONVERSATION WITH PT.S SON ON PHONE RIGHT NOW IN REGARDS TO POC AND REHAB FIRST NOW BEFORE SURGERY HERE LOCALLY [address] [facility] [address].
[2020-04-25 15:14] VITALS: BP 126/55
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
--- NOTE | 2020-04-25 17:01 | NUR ---
PATIENT SEEN BY PLANT OPERATIONS MANAGER FOR [employer]. PATIENT IS A CANDIDATE FOR [facility]. AUTHORIZATION PROCESS INITIATED. AWAITING CALL FROM INSURANCE WITH INFORMATION OF WHERE TO SEND CLINICAL INFORMATION FOR REVIEW. ANTICIPATE CALL BACK ON 04/26/20 IN AM. THANK YOU FOR THIS REFERRAL.
[2020-04-25 20:45] VITALS: BP 115/53
[2020-04-26 04:45] VITALS: BP 111/53
[2020-04-26] MEDS ORDERED: IPRAT-ALBUT 0.5-3 ML INH ×2 (06:12)
[2020-04-26] MEDS ORDERED: PREDNISONE 5 MG5 M1 PO (06:12)
--- NOTE | 2020-04-26 06:12 | NUR ---
pt resting quietly thru the noc with out any c/o, vss, remains on 6L/nc and bipap at night, voiding per page, no c/o pain thru the noc, plans to go to rehab before abdominal surg. will con't to monitor per ppoc.
[2020-04-26] MEDS ORDERED: CARDIZEM CD120 MG PO (06:13)
[2020-04-26] MEDS ORDERED: MUCINEX DM ER1 EAC1 PO (06:13)
[2020-04-26] MEDS ORDERED: APAP W/CODEINE1 TA2 PO (06:13)
[2020-04-26 07:36] VITALS: BP 118/60
--- NOTE | 2020-04-26 11:50 | NUR ---
Received patient care at 0700. pt is alert and oriented x4, pt does not complain of pain at this time. pt was Atrial Paced on cardiac rehabilitation specialist. pt tolerated medication administration well, however did refused Nystatin powder. Pt was able to ambulated with PT with walker and gait belt. pt tolerated procedure well. Pt transferred to [facility] in chair with primary RNs. [facility] nurse assumed care at 1145. Assessment as charged.
[2020-04-26 13:58] VITALS: BP 101/46
--- NOTE | 2020-04-26 15:25 | NUR ---
[facility] has accepted the pt for a rehab for intensive therapy program prior to having surgery;however her insurance plan has denied the request. A peer to peer has been scheduled for 10am tomorrow with the rehab junior mechanical engineer to discuss the request and see if the denial can be over turned. Therapy is working with the pt and she is progressing. Pt transfered from CCU to today.
[2020-04-26 20:19] VITALS: BP 99/48
[2020-04-27 04:40] VITALS: BP 93/48
[2020-04-27 07:15] VITALS: BP 93/57
--- NOTE | 2020-04-27 07:57 | NUR ---
PT WAS OBSERVED SITTING IN THE RECLINER IN HER ROOM AT SHIFT CHANGE.SOB WITH EXERTION NOTED WHEN PT WAS TRANSFERRED BACK TO HER BED.PT ON 4L/NC.PT SLEPT WITH HER BIPAP AT HS.PT CONT WITH RT TX ORDERED.PT ENCOURAGE TO USE HER INCENTIVE SPIROMETER.REPORT TO AM NURSE.
[2020-04-27 12:28] LABS: HEMATOCRIT 34.7 % (37.0-47.0); MCH 25.6 pg (26.0-34.0); MCHC 30.5 g/dL (28.0-37.0); MCV 83.8 fL (80.0-100.0); RBC 4.14 mil/uL (4.20-5.00); RDW 20.8 % (10.5-14.5); WBC 6.3 thou/uL (4.0-11.0)
--- NOTE | 2020-04-27 12:30 | NUR ---
cm notified by silva grimaldoab liamello, pt was denied by insur for aru after peer to peer call. pt agreeable to snf. pt does not have preference but stated does not wish to rtrn to [facility]. cm placed signed vendor choice in pt chart. d/c raw material planner asked to fax referrals to [facility] and [facility]. ng informed by [facility] they are not in-network w/pt's insur. baljinder contacted pt son, joi, w/update. joi agreeable to plan. f/u w/joi once snf has been selected.
[2020-04-27 12:43] LABS: HEMOGLOBIN 10.6 gm/dL (12.0-15.0)
--- NOTE | 2020-04-27 12:44 | NUR ---
AUTHORIZATION DENIED BY INSURANCE ON 04/26/20 AND PEER TO PEER PERFORMED THIS DATE. DENIAL REMAINED. CLINICAL RESEARCH SPEC INFORMED OF CONTINUED DENIAL/[facility] UNABLE TO ACCEPT.
--- NOTE | 2020-04-27 15:49 | NUR ---
FAXED REFERRAL TO [facility] SPOKE WITH CELINE IN ADM SHE RECEIVED REFERRAL AND WILL REVIEW.
[2020-04-27 15:50] VITALS: BP 96/47
--- NOTE | 2020-04-27 18:30 | NUR ---
PT ASSESSED AT START OF SHIFT. STATES BREATHING BETTER TODAY. WORKED W/ THERAPY. AMBULATED TO THE BATHROOM W/ O2 USING WALKER AND DID FAIR. DESATTED SOME BUT RECOVER FAIRLY QUICK. VERY LOOSE CONJESTED COUGH. EATING AND DRINKING WELL. NO C/O PAIN. PLAN FOR DC TO REHAB BEFORE GOING HOME.
[2020-04-27 20:01] VITALS: BP 102/46
--- NOTE | 2020-04-28 04:34 | NUR ---
PT WITH LOOSE CONGESTED COUGH.PRN MUCINEX ADMINISTERED.PT CONCERNED ABOUT THE BIPAP,PT'S CONCERN ADDRESSED.SNYDER CATH IN PLACE.PT CONT ON 4L/NC.PT ABLE TO MAKE HER NEEDS KNOWN.CALL LIGHT WITHIN REACH.
[2020-04-28 08:16] VITALS: BP 95/52
--- NOTE | 2020-04-28 16:32 | NUR ---
Assumed pt care at 7am.Pt in bed resting with o2 on as ordered.Assessment completed.vss.Pt dangle at bs for all meals.Good appetite.Dr Fernandez and Shawn here,order noted.Rt done q4 as ordered.Pt up inn chair at present without c/o. Will continue to monitor.
[2020-04-28 16:33] VITALS: BP 126/92
[2020-04-28 19:15] VITALS: BP 118/54
--- NOTE | 2020-04-28 23:48 | NUR ---
PTT WAS OBSERVED LYING ON HER BED WATCHING TV AT START OF SHIFT.PT DENIED PAIN/N/ SO FAR.PT STILL WITH NON PRODUCTIVE COUGH,PRN MUCINEX ADMINISTERED PER PT'S REQUEST.PT ENCOURAGED TO CONT USING HER INCENTIVE SPIROMETER.SNYDER CATH IN PLACE TO DD.PT ON 3L/NC,SLEEPS WITH A BIPAP AT HS.PT RESTING ON HER BED AT THIS TIME.CALL LIGHT WITHIN REACH.
[2020-04-29 03:56] VITALS: BP 90/51
[2020-04-29 07:34] VITALS: BP 96/71
--- NOTE | 2020-04-29 09:41 | NUR ---
DR. MARTINEZ IN TO SEE PT AND GAVE ORDER TO DC SNYDER TODAY IN PREPARATION FOR DC TO [facility] TOMORROW.
[2020-04-29 10:19] LABS: POTASSIUM 3.3 mmol/L (3.5-5.1)
[2020-04-29 10:20] LABS: CALCIUM 7.9 mg/dL (8.5-10.1)
[2020-04-29 11:08] LABS: HEMATOCRIT 32.3 % (37.0-47.0); HEMOGLOBIN 9.9 gm/dL (12.0-15.0); MCH 26.3 pg (26.0-34.0); MCHC 30.6 g/dL (28.0-37.0); MCV 85.7 fL (80.0-100.0); RBC 3.77 mil/uL (4.20-5.00); RDW 20.7 % (10.5-14.5); WBC 5.3 thou/uL (4.0-11.0)
--- NOTE | 2020-04-29 16:05 | NUR ---
PT ASSESSED AT START OF SHIFT. PT STATES SHE'S FEELING BETTER. STRENGTH BETTER AND NOT SHORT OF AIR W/ ACTIVITY BEFORE. UP W/ WALKER TO THE BATHROOM SEVERAL TIMES. SNYDER DC'D AND VOIDED W/O PROBLEMS. SAT UP IN THE CHAIR FOR SEVERAL HOURS. PLAN FOR SKILLED VISIT ON DISCHARGE PT NEEDING BIPAP FOR SLEEP AT THIS TIME AND DOES NOT HAVE AT HOME. PLAN FOR OUTPT SLEEP STUDY WHEN ABLE - TO AQUIRE CPAP FOR HOME USE.
[2020-04-29 16:42] VITALS: BP 81/50
[2020-04-29 19:43] VITALS: BP 92/57
--- NOTE | 2020-04-30 04:51 | NUR ---
RECEIVED CARE OF THIS PATIENT AT 1900. PATIENT ALERT AND ORIENTED X4. UP TO BSC WITH SBA. ACCUCHECK WAS 113, NO COVERAGE. HAS PULSE OX DURING NIGHT AND BIPAP. MONITOR KEPT GOING OFF FOR VARIES REASONS. PATIENT HAD NO PHYSICAL PROBLEMS, PATIENT C/O PAIN. MED GIVEN. SLEPT VERY LITTLE THIS SHIFT.
[2020-04-30 08:41] VITALS: BP 107/79
[2020-04-30 08:55] LABS: BE(vivo) 11.2 mmol/L (-2 to +3); HCO3 35.8 mmol/L (22.0-26.0); PCO2 47.2 mmHg (35.0-45.0); PO2 83.8 mmHg (80.0-100.0); pH 7.498 (7.360-7.450); sO2 96.9 % (92.0-98.0)
--- NOTE | 2020-04-30 10:26 | NUR ---
CM FAXED UPDATED CLINICALS TO [facility] [phone]. STILL AWAITING COVID TEST.
[2020-04-30 16:21] VITALS: BP 97/57
--- NOTE | 2020-04-30 18:30 | NUR ---
PT ASSESSED AT START OF SHIFT. IMPROVING MORE EACH DAY. ENDURANCE BETTER. NO WHEEZING. DR. MARTINEZ IN EARLY AND PLAN FOR PT TO GO FOR SKILLED VISIT UNTIL ABLE TO BE OFF BIPAP FOR SLEEP. AWAITING ACCEPTANCE. WORKING W/ THERAPY.
[2020-04-30 19:04] VITALS: BP 103/58
--- NOTE | 2020-05-01 04:53 | NUR ---
ASSESSED AT START OF SHIFT 1900. PT A&OX4 DENIES PAIN. IV INTACT AND SL. ON 4L OF O2 AND WEARS BIPAP AT NIGHT. PT UP WITH ASSITX1 TO THE BSC. BSG CHECKED NO INSULIN COVERAGE. COVID NEGATIVE. FALL PREC IN PLACE AND CALL LIGHT AT REACH WILL CONT TO MONITOR.
[2020-05-01 07:15] VITALS: BP 102/68
--- NOTE | 2020-05-01 08:43 | NUR ---
Followup: tolerating meals well. BG controlled. Discharge planning in process, likely dc soon. Low nutrition risk
--- NOTE | 2020-05-01 15:53 | NUR ---
TANVI reviewed chart and spoke with nursing. TANVI spoke with Trena in admissions at [facility] pending insurance authorization. TANVI met with pt at bedside to provide update and discuss discharge plan. Pt is agreeable with plan and states that she is under the impression that she will have surgery prior to discharge. TANVI contacted attending physician to clarify if pt will have surgery prior to discharge or after short term SNF stay. TANVI left voice message for pt's son, Jesse, to provide update. Awaiting clarification of surgical plans. TANVI is following to assist as needed with discharge planning.
[2020-05-01 16:10] VITALS: BP 88/52
--- NOTE | 2020-05-01 17:19 | NUR ---
PT CARE ASSUMED AT 0700. A&Ox4. BIPAP AT NIGHT. COVID-. STANDBY UP TO THE BEDSIDE COMMODE. PT WILL CONTINUESLY GET UP ON HER OWN AND GO TO THE BEDSIDE COMMODE. PT HAS BEEN REEDUCATED OF THE FALL PROTOCOL. NO COMPLAINTS OF PAIN. PER DR. MARTINEZPT IS TO BE CONSULTED BY SURGERY GO TO REHAB FOR A WEEK AND THEN COME BACK AND HAVE HER SURGERY. PT CONTINUES TO STATE THAT SHE IS NOT DISCAHRGING AND HAVING HER SURGERY TOMORROW. SHE HAS TOLD THIS TO MULTIPLE STAFF MEMBERS NOW AND CASE MANAGEMENT.ON 4L CONTINUES. ACHS WITH LOW SLIDING SCALE. IV PATENT WITH NO REDNESS OR EDEMA, SALINE LOCKED. FALL PROTOCOL IN PLACE. CALL LIGHT IN REACH. WILL CONTINUE TO MONITOR.
[2020-05-01 20:19] VITALS: BP 89/50
[2020-05-01 21:41] VITALS: BP 105/54
--- NOTE | 2020-05-02 01:51 | NUR ---
ASSESSED AT START OF SHIFT. PT A&OX4 UP WITH SBA TO THE BSC. DENIES PAIN. IV INTACT AND SL. PT ON 4L OF O2 AND WEARS BIPAP AT NIGHT TIME. FALL PREC IN PLACE. COUGH MEDICATION GIVEN WILL CONT WITH POC TILL EOS.
[2020-05-02 03:53] VITALS: BP 95/51
[2020-05-02 07:45] VITALS: BP 101/57
--- NOTE | 2020-05-02 09:41 | NUR ---
ASSUMED CARE AT 0700. PT IS A&O X4. PT STILL HAS PRODUCTIVE COUGH. 4L OF OXYGEN. NO SKIN ISSUE. SKIN INTACT. IV ON LEFT FA IS INTACT AND SHOW NO SIGNS OF REDNESS OR SWELLING. BSG WNL. VSS. FALL PRECAUTION. CALL LIGHT WITHIN REACH. WILL CONTINUE TO MONITOR.
--- NOTE | 2020-05-02 12:51 | NUR ---
ON-GOING ASSESSMENT: CM REVIEWED CHART. PLANS ARE FOR PATIENT TO GO TO SHORT STAY AT SNF. CM FAXED UPDATED CLINICAL TO [facility] WHO IS AWAITING INSURANCE AUTH AT THIS TIME. CM LEFT VM WITH ADMISSIONS TO NOTIFY CM IF THEY RECEIVE INSURANCE AUTH. CM WILL CONTINUE TO FOLLOW TO ASSIST NEEDED.
[2020-05-02 16:25] VITALS: BP 115/89
[2020-05-02 20:04] VITALS: BP 79/458
--- NOTE | 2020-05-03 04:41 | NUR ---
RECIEVED CARE OF THIS PATIENT AT 1900. PATIENT ALERT AND ORIENTED X4. UP TO BSC WITH ASSIST OF ONE. C/O PAIN, MED GIVED. HAS O2 AT 3-4L/NC, WEARS BIPAP AT HS. ACCHCHECK WAS 114. NO COVERAGE NEEDED. SLEPT OFF AND ON DURING NIGHT.
[2020-05-03 07:31] VITALS: BP 102/58
[2020-05-03 09:42] LABS: HEMATOCRIT 33.5 % (37.0-47.0); HEMOGLOBIN 10.3 gm/dL (12.0-15.0); MCH 26.4 pg (26.0-34.0); MCHC 30.8 g/dL (28.0-37.0); MCV 85.7 fL (80.0-100.0); RBC 3.91 mil/uL (4.20-5.00); RDW 21.8 % (10.5-14.5); WBC 8.5 thou/uL (4.0-11.0)
[2020-05-03 09:52] VITALS: BP 102/58
[2020-05-03 09:55] LABS: CALCIUM 8.1 mg/dL (8.5-10.1); POTASSIUM 3.1 mmol/L (3.5-5.1)
--- NOTE | 2020-05-03 10:39 | NUR ---
ON-GOING ASSESSMENT: CM REVIEWED CHART AND SPOKE WITH ATTENDING WHO REPORTS PT IS STABLE FOR DISCHARGE TO SNF. AMY SPOKE WITH LIASON FROM [facility] WHO REPORTS THEY HAVE INSURANCE AUTH AND CAN ACCEPT PT TODAY. CM ASKED TO VERIFY IF THEY HAVE THE BIPAP. SHE STATES THEY JUST NEED THE SETTING AND SHE IS ORDERING ONE AND WILL HAVE IT THERE FOR PATIENT TODAY. CM FAXED [facility]I IN ADMISSIONS SETTINGS FOR BIPAP, WELL DISCHARGE ORDERS AND NEGATIVE COVID TEST FROM THE 8TH WHICH SHE STATES THEY CAN ACCEPT. CONFIRMED SHE RECEIVED INFORMATION. CM NOTIFIED PT OF DISCHARGE AND ALSO LEFT A VM FOR PATIENTS SON. PT STATES SHE WOULD ALSO TRY AND REACH OUT TO HER SON. CHART COPY WAS ORDERED. AWAITING A TRANSPORTATION TIME AT THIS TIME. BEDSIDE RN NOTIFIED OF DISCHARGE AND HAS THE NUMBER FOR REPORT.
--- NOTE | 2020-05-03 13:10 | NUR ---
assumed care at 0700. pt is a&o x4. iv is intact and shows no signs of rednesss or swelling. fall precaution. call light within reach. pt denies pain and soa. pt has productive cough. will continue to monitor.
== END 2020-05-03 15:08 | DRG 374 ==
LOC: ER 15:26 → 2N 18:59 → 4S 18:59 → EROBS 18:59 → 2N 04-17 01:20 → 4S 04-26 11:33
PROVIDERS: Emergency Medicine; Internal Medicine Pulmonary Disease; Nurse Practitioner; Nurse Practitioner Adult Health; Pediatrics; Surgery; ADMIT Family Medicine; ATTEND Family Medicine
PROC: 30233N1 Transfusion of Nonautologous Red Blood Cells into Peripheral Vein, Percutaneous Approach (ICD-10-PCS; principal; 2020-04-16)
PROC: 5A0935A Assistance with Respiratory Ventilation, Less than 24 Consecutive Hours, High Flow/Velocity Cannula (ICD-10-PCS; 2020-04-18)
PROC: 5A09457 Assistance with Respiratory Ventilation, 24-96 Consecutive Hours, Continuous Positive Airway Pressure (ICD-10-PCS; 2020-04-18)
PROC: 5A0935A Assistance with Respiratory Ventilation, Less than 24 Consecutive Hours, High Flow/Velocity Cannula (ICD-10-PCS; 2020-04-20)
PROC: 5A09357 Assistance with Respiratory Ventilation, Less than 24 Consecutive Hours, Continuous Positive Airway Pressure (ICD-10-PCS; 2020-04-20)
PROC: 5A09357 Assistance with Respiratory Ventilation, Less than 24 Consecutive Hours, Continuous Positive Airway Pressure (ICD-10-PCS; 2020-04-21)
PROC: 5A09357 Assistance with Respiratory Ventilation, Less than 24 Consecutive Hours, Continuous Positive Airway Pressure (ICD-10-PCS; 2020-04-23)
PROC: 5A0935A Assistance with Respiratory Ventilation, Less than 24 Consecutive Hours, High Flow/Velocity Cannula (ICD-10-PCS; 2020-04-23)
PROC: 5A09357 Assistance with Respiratory Ventilation, Less than 24 Consecutive Hours, Continuous Positive Airway Pressure (ICD-10-PCS; 2020-04-24)
PROC: 5A09357 Assistance with Respiratory Ventilation, Less than 24 Consecutive Hours, Continuous Positive Airway Pressure (ICD-10-PCS; 2020-04-25)
PROC: 5A0935A Assistance with Respiratory Ventilation, Less than 24 Consecutive Hours, High Flow/Velocity Cannula (ICD-10-PCS; 2020-04-25)
PROC: 5A09357 Assistance with Respiratory Ventilation, Less than 24 Consecutive Hours, Continuous Positive Airway Pressure (ICD-10-PCS; 2020-04-26)
PROC: 5A0935A Assistance with Respiratory Ventilation, Less than 24 Consecutive Hours, High Flow/Velocity Cannula (ICD-10-PCS; 2020-04-26)
PROC: 5A09357 Assistance with Respiratory Ventilation, Less than 24 Consecutive Hours, Continuous Positive Airway Pressure (ICD-10-PCS; 2020-04-27)
PROC: 5A0935A Assistance with Respiratory Ventilation, Less than 24 Consecutive Hours, High Flow/Velocity Cannula (ICD-10-PCS; 2020-04-30)
PROC: 5A09357 Assistance with Respiratory Ventilation, Less than 24 Consecutive Hours, Continuous Positive Airway Pressure (ICD-10-PCS; 2020-04-30)
DX: C18.1 Malignant neoplasm of appendix (principal); I50.33 Acute on chronic diastolic (congestive) heart failure; J96.21 Acute and chronic respiratory failure with hypoxia; J96.22 Acute and chronic respiratory failure with hypercapnia; K92.2 Gastrointestinal hemorrhage, unspecified; I48.21 Permanent atrial fibrillation; J98.11 Atelectasis; J44.1 Chronic obstructive pulmonary disease with (acute) exacerbation; Z68.41 Body mass index [BMI] 40.0-44.9, adult; R19.09 Other intra-abdominal and pelvic swelling, mass and lump; F31.9 Bipolar disorder, unspecified; D64.9 Anemia, unspecified; E03.9 Hypothyroidism, unspecified; I49.5 Sick sinus syndrome; I35.0 Nonrheumatic aortic (valve) stenosis; D12.0 Benign neoplasm of cecum; K64.8 Other hemorrhoids; D17.79 Benign lipomatous neoplasm of other sites; I11.0 Hypertensive heart disease with heart failure; G47.33 Obstructive sleep apnea (adult) (pediatric); R19.00 Intra-abdominal and pelvic swelling, mass and lump, unspecified site; E66.01 Morbid (severe) obesity due to excess calories; R53.81 Other malaise; G72.9 Myopathy, unspecified; K44.9 Diaphragmatic hernia without obstruction or gangrene; Z20.822 Contact with and (suspected) exposure to COVID-19; Z95.0 Presence of cardiac pacemaker; Z79.01 Long term (current) use of anticoagulants; Z87.891 Personal history of nicotine dependence
CPT/HCPCS: 10081; 10100

== ENCOUNTER 2020-05-13 09:57 | Inpatient (IN) | payer OTHER ==
[~2020-05-13] VITALS: Ht 152.4 cm; Wt 105.4 kg
[2020-05-13 09:57] VITALS: BP 113/57
[~2020-05-13 09:57] MED LIST changes: +APAP W/CODEINE1 TA2 PO; +CARDIZEM CD120 MG PO; +IPRAT-ALBUT 0.5-3 ML INH; +MUCINEX DM ER1 EAC1 PO; +PREDNISONE 5 MG5 M1 PO
[2020-05-13 10:32] LABS: HEMATOCRIT 33.3 % (37.0-47.0); RBC 3.77 mil/uL (4.20-5.00); WBC 5.9 thou/uL (4.0-11.0)
[2020-05-13 10:34] LABS: HEMOGLOBIN 10.4 gm/dL (12.0-15.0); MCH 27.5 pg (26.0-34.0); MCHC 31.2 g/dL (28.0-37.0); MCV 88.2 fL (80.0-100.0); PLATELET COUNT 176 thou/uL (150-400)
[2020-05-13 10:40] LABS: ANION GAP 4 mmol/L (7-16); BUN 28 mg/dL (7-18); CALCIUM 8.2 mg/dL (8.5-10.1); CHLORIDE 96 mmol/L (98-107); CO2 36 mmol/L (21-32); CREATININE 0.9 mg/dL (0.6-1.0); GLUCOSE 121 mg/dL (74-106); SODIUM 136 mmol/L (136-145)
[2020-05-13 10:50] LABS: ALBUMIN 2.8 g/dL (3.4-5.0); SGOT 38 U/L (15-37); SGPT 32 U/L (14-59); TOTAL BILIRUBIN 0.5 mg/dL (0.2-1.0); TOTAL PROTEIN 6.8 g/dL (6.4-8.2); TROPONIN-I <0.06 ng/mL (<0.06)
[2020-05-13 10:59] LABS: POTASSIUM 4.5 mmol/L (3.5-5.1)
[2020-05-13 12:57] LABS: ABSOLUTE NEUTROPHILS 3.9 thou/uL (1.4-8.2); ANISOCYTOSIS 1+; PLATELET ESTIMATE NORMAL
[2020-05-13 15:02] VITALS: BP 95/49
[2020-05-13 15:18] VITALS: BP 111/64
--- NOTE | 2020-05-13 15:19 | NUR ---
REPORT REC'D FROM ED
--- NOTE | 2020-05-13 15:19 | NUR ---
UPDATE ON POC GIVEN TO DPOA KAREN REPLACED BY [facility] [phone].
[2020-05-13 15:30] VITALS: BP 102/55
--- NOTE | 2020-05-13 18:35 | NUR ---
PT UNSURE OF HOME CPAP SETTINGS.
[2020-05-13 19:10] VITALS: BP 114/63
[2020-05-14 00:33] VITALS: BP 102/68
[2020-05-14 04:12] VITALS: BP 103/68
--- NOTE | 2020-05-14 05:14 | NUR ---
Negative COVID PCR reported to warehouse picker. Maintainining O2 sat in the low 90's at HS then upper 90's this am on 3L/NC. She does get short of breath with exertion. Diuresed well with IV lasix , 1600 ml out from page. Stated her legs feel a little better though still swollen. Bed alarm on for safety.
[2020-05-14] MEDS ORDERED: FLORANEX TABLE1 EACH PO (06:31)
[2020-05-14] MEDS ORDERED: DEPAKOTE ER500 M1 PO (06:32)
[2020-05-14] MEDS ORDERED: SLOW FE142 MG PO (06:34)
[2020-05-14] MEDS ORDERED: LASIX 40 MG TAB40 MG PO (06:35)
[2020-05-14] MEDS ORDERED: KLOR-CON 1010 MEQ PO (06:38)
[2020-05-14 07:43] LABS: CALCIUM 8.1 mg/dL (8.5-10.1); CREATININE 0.9 mg/dL (0.6-1.0)
[2020-05-14 07:50] LABS: POTASSIUM 3.3 mmol/L (3.5-5.1)
[2020-05-14 08:01] VITALS: BP 119/66
--- NOTE | 2020-05-14 08:06 | EKG ---
[address] [address] ELECTROCARDIOGRAM REPORT Name: GURDEEP GALLARDO Room #: 359-[facility]#: [id number] Admission: 05/13/20 Attend Phys: Tho Fernandez MD Discharge: Date of : 52 Report #: [id number] [facility] ED Test Date: 2020-05-13 Test Time: 10:07:16 Pat Name: GURDEEP GALLARDO Department: Room: [facility] Gender: F Core Machine Tender: DARÍO : 1950 Requested By: Tho Fernandez Order Number: [id number] MD: Augustin Solorzano Measurements Intervals [place] Rate: 80 P: 191 AR: 165 QRS: 60 QRSD: 122 T: 212 QT: 372 QTc: 430 Interpretive Statements Atrial fibrillation Noise notedon leads Compared to ECG 04/22/2020 10:28:06 Electronically Signed On 05-14-2020 8:06:41 WARP TYING MACHINE TENDER by Augustin Solorzano [email or web address] <ELECTRONICALLY SIGNED> By: Augustin Solorzano MD 05/14/20805 1007 [facility] Augustin Solorzano MD /ARON
--- NOTE | 2020-05-14 11:09 | NUR ---
BUBBLER ADDED TO OXYGEN. PT SON BRINGING UP HOME CPAP MACHINE.
--- NOTE | 2020-05-14 14:33 | NUR ---
PT HAS HOME CPAP IN ROOM
--- NOTE | 2020-05-14 14:56 | NUR ---
INITIAL ASSESSMENT: Received consult for discharge planning. TANVI reviewed chart and spoke with nursing. Pt was admitted from home after a fall. Pt with BLE edema. Pt had negative COVID test on 05/13. Enhanced Isolations have been discontinued. Pt is on 3L of O2 and IV lasix. Pt with hx of CHF. TANVI spoke with pt via phone. Introduced role of SW. Pt is alert/orientated x 4. Pt was discharged from [facility] to [facility] on 05/03. Pt was discharged home from [facility] on Sat. 05/12. Pt states she was set up with [facility]. Pt is normally on 3L of O2 at home. Home O2 provided by [facility]. Pt also has a nebulizer and cpap. Surgery consulted to see if pt will have surgery during hospitalization. TANVI spoke with intake at [facility] to notify of pt's hospitalization. SW is following to assist as needed with discharge planning.
[2020-05-14 15:12] VITALS: BP 97/43
[2020-05-14 19:40] VITALS: BP 120/72
[2020-05-15 04:32] VITALS: BP 97/55
[2020-05-15 05:46] LABS: ANION GAP < 0 mmol/L (7-16); BUN 23 mg/dL (7-18); CALCIUM 7.9 mg/dL (8.5-10.1); CHLORIDE 99 mmol/L (98-107); CO2 42 mmol/L (21-32); CREATININE 0.9 mg/dL (0.6-1.0); GLUCOSE 93 mg/dL (74-106); POTASSIUM 3.5 mmol/L (3.5-5.1); SODIUM 140 mmol/L (136-145)
--- NOTE | 2020-05-15 05:50 | NUR ---
Pt. stated she slept well during the night with her own CPAP on. O2 at 3L/NC when not on CPAP. Shortness of breath with exertion. Up with assist to commode this am and had large bm. Cont. on fluid restriction , likes ice chips. Ranjana had 900 ml urine this shift.Bed alarm on for safety,she calls appropriately if needs assistance. Making some progress towards care plan goals.
[2020-05-15 07:11] VITALS: BP 91/48
--- NOTE | 2020-05-15 07:43 | EKG ---
[place] [address] [facility] [address] ELECTROCARDIOGRAM REPORT Name: GURDEEP GALLARDO Room #: 359- ADM IN M.R.#: [id number] Admission: 05/13/20 Attend Phys: Tho Fernandez MD Discharge: Date of : 52 Report #: [id number] [facility] Test Date: 2020-05-15 Test Time: 07:29:41 Pat Name: GURDEEP GALLARDO Department: Room: 359 Gender: F Quarry Supervisor: ANDREA : 1950 Requested By: Rita Bustamante Order Number: [id number] MD: Omari Bryant Measurements Intervals [place] Rate: 91 P: [place]: QRS: 55 QRSD: 94 T: 211 QT: 336 QTc: 414 Interpretive Statements Atrial fibrillation Nonspecific ST and T wave abnormality Compared to ECG 05/13/2020 10:07:16 Premature ventricular or aberrantly conducted supraventricular complexes are no longer present Electronically Signed On 05-15-2020 7:42:50 SCREEN EXAMINER by Omari Bryant [email or web address] <ELECTRONICALLY SIGNED> By: Omari Bryant MD, [facility] 05/15/2042 8 8 Omari Bryant MD, [facility] /EPI
--- NOTE | 2020-05-15 12:59 | NUR ---
SW reviewed chart and spoke with nursing. Pulmonary consulted for clearance for surgical procedure. Surgery is tentatively planned for tomorrow. Pt will need therapy evals following surgery. Pt had been home from SNF for one day prior to coming back to the hospital. TANVI is following to assist as needed with discharge planning.
[2020-05-15 13:03] LABS: BE(vivo) 12.1 mmol/L (-2 to +3); HCO3 38.3 mmol/L (22.0-26.0); PCO2 59.1 mmHg (35.0-45.0); PO2 74.1 mmHg (80.0-100.0); sO2 94.9 % (92.0-98.0)
--- NOTE | 2020-05-15 13:48 | 2DMMODE ---
[address] [address] 2 D/M-MODE ECHOCARDIOGRAM Name: GURDEEP GALLARDO Room #: 359-P ADM IN M.R.#: [id number] Admission: 05/13/20 Attend Phys: Tho Fernandez MD Discharge: Date of : 52 Report #: [id number] THIS REPORT FOR: cc: XOCHITL - No family physician/PCP FAM - No family physician/PCP Tramaine Ward MD [facility] ~ APPROVED REPORT Study performed: 05/15/2020 10:51:04 EXAM: Comprehensive 2D, Doppler, and color-flow Echocardiogram Patient Location: Bedside Room #: 359 Status: routine BSA: 1.93 HR: 78 bpm BP: 96/53 mmHg Rhythm: Atrial Fibrillation Other Information Study Quality: Adequate Indications Pre-Op Aortic Valve Disease COPD Atrial Fibrillation Pacemaker Hypertension/HDD 2D Dimensions IVC: 31.00 mm Tricuspid Valve TR Peak Nir.: 3.81 m/s TR Peak Gr.: 58.10 mmHg PA Pressure: 68.00 mmHg Left Ventricle The left ventricle is normal size. There is normal LV segmental wall motion. There is normal left ventricular wall thickness. The left ventricular systolic function is normal. The left ventricular ejection fraction is within the normal range. LVEF is 55-60%. This study is not technically sufficient to allow evaluation of the LV [address] [place] [address] 2 D/M-MODE ECHOCARDIOGRAM Name: GURDEEP GALLARDO Room #: 359-P ADM IN M.R.#: [id number] Admission: 05/13/20 Attend Phys: Tho Fernandez, Discharge: Date of : 52 Report #: [id number] diastolic function due to atrial fibrillation. Right Ventricle The right ventricle is normal size. The right ventricular systolic function is normal. Pacemaker lead is present in the right ventricle. Atria Left atrium is dilated. Right atrium is dilated. Pacemaker lead is present in the right atrium. Aortic Valve The aortic valve is normal in structure. Aortic valve is calcified. No aortic regurgitation is present. Mitral Valve The mitral valve is normal in structure. Mild mitral regurgitation. No evidence of mitral valve stenosis. Tricuspid Valve The tricuspid valve is normal in structure. There is mild tricuspid regurgitation. Estimated PAP 68 mmHg. There is moderate-severe pulmonary hypertension. Pulmonic Valve The pulmonary valve is normal in structure. Great Vessels The aortic root is normal in size. IVC is dilated and collapses <50% with inspiration. Pericardium There is no pericardial effusion. <Conclusion> Technically difficult study Normal left ventricle size/wall thickness Ejection fraction 55%, no obvious segmental wall motion abnormality Normal right ventricular size/function Mild biatrial enlargement Pacer wire detected in the right ventricle Mild aortic valve calcification with adequate cusp excursion Mild mitral valve insufficiency Mild tricuspid valve insufficiency Severe pulmonary hypertension PA systolic pressure estimated at 68 [facility] [address] [place] [address] 2 D/M-MODE ECHOCARDIOGRAM Name: GURDEEP GALLARDO Room #: 359-P ADM IN M.R.#: [id number] Admission: 05/13/20 Attend Phys: Tho Fernandez, Discharge: Date of : 52 Report #: [id number] mmHg No pericardial effusion <ELECTRONICALLY SIGNED> By: Tramaine Ward MD, FACC 05/15/208 47 Tramaine Ward MD, FACC /INF
[2020-05-15 15:40] VITALS: BP 81/49
[2020-05-15 15:46] LABS: HEMATOCRIT 31.2 % (37.0-47.0); HEMOGLOBIN 9.7 gm/dL (12.0-15.0); MCHC 31.2 g/dL (28.0-37.0); MCV 89.7 fL (80.0-100.0); RBC 3.48 mil/uL (4.20-5.00); RDW 25.8 % (10.5-14.5); WBC 4.4 thou/uL (4.0-11.0)
[2020-05-15 18:00] VITALS: BP 100/56
[2020-05-15 19:37] VITALS: BP 104/42
[2020-05-16 04:14] VITALS: BP 119/97
--- NOTE | 2020-05-16 05:39 | NUR ---
Received pt. on 3L/NC (baseline) then she slept with her own CPAP at HS. She does get short of breath with exertion. IV on right upper arm clotted off. New IV placed on left hand. Chlorhexidine bath given this am. Up with assist to commode for bm. Completed bowel prep at HS , last bm this am large ,loose but not clear yet as of this time. Scheduled lasix given this am. Chilel draining clear yellow urine. Son called last night who will be here to see pt. prior to surgery. Pt. kept NPO since KS except for thyroid med and KCL with a couple of sips of water this am.
--- NOTE | 2020-05-16 06:26 | NUR ---
Report given to SANJANA Cerrato . Another IV placed on left AC , g 20. Chilel had another 950 ml after lasix given (total output this shift 1400 ml). Son here with pt. Waiting for OR staff to pick her up for surgery.
--- NOTE | 2020-05-16 06:40 | NUR ---
Pt. left the unit to OR with O2 at 3L/NC at 0635. Preop IV ABT and heparin SQ send with pt. to OR with RN.
[2020-05-16 06:47] LABS: CALCIUM 8.1 mg/dL (8.5-10.1); CREATININE 0.7 mg/dL (0.6-1.0); POTASSIUM 4.7 mmol/L (3.5-5.1)
[2020-05-16 12:15] VITALS: BP 105/66
[2020-05-16 12:45] VITALS: BP 113/79
--- NOTE | 2020-05-16 14:33 | NUR ---
SW reviewed chart and spoke with nursing and attending physician. Pt had lap right hemicolectomy earlier today per surgery. Pt will need therapy evals to be ordered to assist with recommendations for discharge. SW is following to assist as needed with discharge planning.
[2020-05-16 15:18] VITALS: BP 90/53
--- NOTE | 2020-05-16 18:35 | NUR ---
05/16/20 ASSUMED PATIENT CARE AT 1245 WHEN PATIENT RETURNED TO UNIT FROM OR. REPORT OBTAINED FROM OR NURSE MATUHR. PATIENT ARRIVED AWAKE AND ALERT. REQUIRING 3-5 LITERS OF OXYGEN. 5 LAP INCISIONS ASSESSED, ALL REMAIN APPROXIMATED AND WITHOUT DRAINAGE THROUGHOUT SHIFT. PAIN CONTROLLED WITH PRN MEDICATIONS, SEE EMAR FOR DOCUMENTATION. PATIENT'S SON LEFT AFTER SURGERY, PATIENT CONTINUES TO UPDATE ALL FAMILY MEMBERS VIA CELL PHONE. WILL CONTINUE TO MONITOR.
[2020-05-16 19:12] VITALS: BP 100/70
--- NOTE | 2020-05-16 21:46 | NUR ---
PT WATCHING TV IN BED. O2 PER ERASTO. LILLIAN TO DELMIS. LUNGS WITH WHEEZES, BS POSITIVE. OBESE WITH EDEMA. DERMABOND SITES DRY INTACT, BRUISING ON ABD NOTED. PT TO USE CPAP AT HS. PT REMAINS KENAITZE. PT VERBALIZED UNDERSTANDING OF FR. BED ALARM ON.
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
[2020-05-17 00:43] VITALS: BP 113/71
[2020-05-17 03:38] VITALS: BP 97/53
[2020-05-17 05:00] LABS: HEMATOCRIT 28.5 % (37.0-47.0); MCH 28.5 pg (26.0-34.0); MCHC 31.7 g/dL (28.0-37.0); MCV 90.1 fL (80.0-100.0); RBC 3.16 mil/uL (4.20-5.00); RDW 26.3 % (10.5-14.5); WBC 5.1 thou/uL (4.0-11.0)
[2020-05-17 05:11] LABS: ALBUMIN 2.1 g/dL (3.4-5.0); CREATININE 0.8 mg/dL (0.6-1.0); MAGNESIUM 1.7 mg/dL (1.8-2.4); PHOSPHORUS 4.1 mg/dL (2.6-4.7)
[2020-05-17 05:19] LABS: POTASSIUM 6.1 mmol/L (3.5-5.1)
[2020-05-17 05:51] VITALS: BP 109/70
--- NOTE | 2020-05-17 06:29 | NUR ---
POTASSIUM ELEVATED, PROVIDER NOTIFIED, HOLDING POTASSIUM.
[2020-05-17 07:28] VITALS: BP 89/42
--- NOTE | 2020-05-17 09:09 | NUR ---
Nutrition Note: Pt admitted with cecal mass, CHF and BLE swelling. Pt now s/p removal of cecal mass. Tolerating clear liquids and diet advancing per surgery. Noted prior to surgery pt eating 50-100% of meals, no complaint of loss of appetite LOOM INSPECTOR. Noted pt with recent admission. Wt -3.5% over past month (not significant). Currently with 1+ pitting edema to BLE. Pt remains low nutritional risk at this time. RD will continue to monitor.
--- NOTE | 2020-05-17 09:43 | EKG ---
[address] [address] [address] [facility] [place] [address] ELECTROCARDIOGRAM REPORT Name: GURDEEP GALLARDO Room #: 359- ADM IN M.R.#: [id number] Admission: 05/13/20 Attend Phys: Tho Fernandez MD Discharge: Date of : 52 Report #: [id number] [facility] Test Date: 2020-05-17 Test Time: 07:33:34 Pat Name: GURDEEP GALLARDO Department: Room: 359 Gender: F Research Asst: ANDREA : 1950 Requested By: Jose G Deleon Order Number: [id number] MD: Tramaine Ward Measurements Intervals [place] Rate: 89 P: 0 MA: 160 QRS: 23 QRSD: 103 T: 161 QT: 335 QTc: 408 Interpretive Statements Ventricular-paced complexes AFIB No further rhythm analysis attempted due to paced rhythm Low voltage, precordial leads Nonspecific T abnrm, anterolateral leads Compared to ECG 05/15/2020 07:29:41 Low QRS voltage now present ST (T wave) deviation no longer present Electronically Signed On 05-17-2020 9:42:55 TRIAGE REGISTER NURSE by Tramaine Ward [email or web address] <ELECTRONICALLY SIGNED> By: Tramaine Ward MD, FAC 05/17/2042 2 Tramaine Ward MD, [facility] /EPI
--- NOTE | 2020-05-17 12:18 | NUR ---
TANVI reviewed chart and spoke with nursing and attending physician. Pt is POD #1 from right lap hemicolectomy. Pt is on IV lasix. PT/OT ordered today to evaluate pt for discharge needs. TANVI spoke with pt via phone to discuss discharge plan. Pt is hoping to be able to go home with HH. TANVI left voice message for pt's son, Jesse, to discuss discharge. Pt is currently staying with Jesse and his family. Pt is on service with [facility]. TANVI is following to assist as needed with discharge planning.
[2020-05-17 14:05] LABS: ANION GAP < 0 mmol/L (7-16); BUN 22 mg/dL (7-18); CALCIUM 8.5 mg/dL (8.5-10.1); CHLORIDE 95 mmol/L (98-107); CO2 37 mmol/L (21-32); GLUCOSE 104 mg/dL (74-106); SODIUM 131 mmol/L (136-145)
[2020-05-17 14:19] LABS: POTASSIUM 6.1 mmol/L (3.5-5.1)
--- NOTE | 2020-05-17 15:34 | NUR ---
ASSUMED CARE OF PT AT 0700, CONTACTED DR. MARTINEZ REGARDING HIGH POTASSIUM OF 6.1 AT 1422. HE GAVE ORDERS TO START NS AT 100.
[2020-05-17 15:40] VITALS: BP 94/52
[2020-05-17 20:45] VITALS: BP 112/72
--- NOTE | 2020-05-18 03:30 | NUR ---
Pt. slept well during the night with her CPAP on otherwise on 4L/NC. She does get short of breath with exertion. C/O pain only when she's coughing , scheduled tylenol given with good relief. Abdominal lap sites well approximated , WILLA. Up with assist to commode and had a med bm. Bed alarm on for safety.
[2020-05-18 04:59] VITALS: BP 95/52
[2020-05-18 07:37] VITALS: BP 102/55
[2020-05-18 08:50] LABS: HEMATOCRIT 28.8 % (37.0-47.0); MCH 28.7 pg (26.0-34.0); MCHC 31.3 g/dL (28.0-37.0); MCV 91.8 fL (80.0-100.0); RBC 3.14 mil/uL (4.20-5.00); RDW 26.4 % (10.5-14.5); WBC 4.3 thou/uL (4.0-11.0)
[2020-05-18 08:59] LABS: CREATININE 1.1 mg/dL (0.6-1.0); POTASSIUM 5.4 mmol/L (3.5-5.1)
--- NOTE | 2020-05-18 14:45 | NUR ---
TANVI reviewed chart and spoke with nursing and attending physician. Pt is POD#2 right hemicolectomy. Pt is on 4.5L of O2. Pt is on IV lasix. Recommendation made for pt to discharge to post-acute care. No weekend discharge planned. SW spoke with pt via phone to discuss discharge plan. Pt was recently at [facility]. Pt is agreeable with referral to [facility]. Pt asks SW to discuss with her son, Jesse. TANVI spoke with Jesse via phone. Jesse is agreeable with referral to [facility]. financial planner to fax SNF referral and notify of anticipating discharge on Thursday. Facility will need to obtain insurance authorization. TANVI is following to assist as needed with discharge planning.
[2020-05-18 15:46] VITALS: BP 141/112
--- NOTE | 2020-05-18 15:58 | NUR ---
FAXED REFERRAL TO [facility] SPOKE WITH THI IN ADM SHE RECEIVED REFERRAL AND CAN ACCEPT SHE WILL SUBMIT FOR AUTH.
--- NOTE | 2020-05-18 18:40 | NUR ---
ASSUMED PATIENT CARE AT 0700. A/O X3. VSS. AFEBRILE. UP CHAIR WITH ASSISTED. VOID AFTER SNYDER OUT. SLOWLY TOWARDS POC GOALS.
[2020-05-18 20:00] VITALS: BP 85/48
[2020-05-18 23:08] VITALS: BP 112/64
--- NOTE | 2020-05-19 02:59 | NUR ---
using her cpap tonight while sleeping. she is unsteady on her feet and week tonight. she has opted to use the bedpan tonight, to prevent incontince. remains on 3 liters n/c. no discharge concerns voiced.
[2020-05-19 04:33] LABS: HEMATOCRIT 27.9 % (37.0-47.0); HEMOGLOBIN 8.9 gm/dL (12.0-15.0); MCH 29.9 pg (26.0-34.0); MCHC 31.9 g/dL (28.0-37.0); MCV 93.8 fL (80.0-100.0); RBC 2.97 mil/uL (4.20-5.00); RDW 26.6 % (10.5-14.5); WBC 4.6 thou/uL (4.0-11.0)
[2020-05-19 04:54] LABS: CALCIUM 8.3 mg/dL (8.5-10.1); CREATININE 1.2 mg/dL (0.6-1.0); POTASSIUM 5.5 mmol/L (3.5-5.1)
[2020-05-19 05:46] VITALS: BP 102/67
[2020-05-19 07:29] VITALS: BP 105/60
--- NOTE | 2020-05-19 10:11 | NUR ---
PT SOA CONTACT DR. BILLY AND RECIEVE ORDERS. RT AT BEDSIDE GIVING BREATHING TREATMENT.
[2020-05-19 10:31] LABS: BE(vivo) 4.8 mmol/L (-2 to +3); PCO2 62.8 mmHg (35.0-45.0); PO2 71.9 mmHg (80.0-100.0); sO2 92.9 % (92.0-98.0)
[2020-05-19 10:32] LABS: pH 7.325 (7.360-7.450)
[2020-05-19 15:27] VITALS: BP 130/103
[2020-05-19 23:54] VITALS: BP 92/56
[2020-05-20 04:34] VITALS: BP 103/63
[2020-05-20 05:23] LABS: ANION GAP < 0 mmol/L (7-16); BUN 31 mg/dL (7-18); CALCIUM 8.2 mg/dL (8.5-10.1); CHLORIDE 100 mmol/L (98-107); CO2 35 mmol/L (21-32); CREATININE 0.9 mg/dL (0.6-1.0); GLUCOSE 87 mg/dL (74-106); POTASSIUM 5.3 mmol/L (3.5-5.1); SODIUM 134 mmol/L (136-145)
--- NOTE | 2020-05-20 05:49 | NUR ---
PLACED A PUREWICK TO HELP WITH STRESS INCONTINCE. PT NEEDING INCREASED OXYGEN TONIGHT. SHE IS AT 9 LITERS N/C. AND REQUIRED 8 LITERS BLEED INTO CPAP
[2020-05-20 08:06] VITALS: BP 89/41
[2020-05-20 14:52] VITALS: BP 132/85
--- NOTE | 2020-05-20 16:54 | NUR ---
ASSUMED PATIENT CARE AT 0700. A/9 X3. CONFUSED. ON 4L/NC. INCONTINUNE URINE. ASSISTED TO CHAIR. SLOWLY TOWATD TO POC GOALS.
[2020-05-20 20:36] VITALS: BP 86/50
[2020-05-21 04:24] VITALS: BP 101/54
[2020-05-21 05:18] LABS: HEMATOCRIT 26.5 % (37.0-47.0); HEMOGLOBIN 8.4 gm/dL (12.0-15.0); MCH 29.3 pg (26.0-34.0); MCHC 31.6 g/dL (28.0-37.0); MCV 92.5 fL (80.0-100.0); RBC 2.87 mil/uL (4.20-5.00); RDW 26.8 % (10.5-14.5)
[2020-05-21 05:35] LABS: ALBUMIN 1.8 g/dL (3.4-5.0); CALCIUM 7.8 mg/dL (8.5-10.1); CREATININE 0.6 mg/dL (0.6-1.0); PHOSPHORUS 3.9 mg/dL (2.6-4.7); POTASSIUM 5.1 mmol/L (3.5-5.1)
--- NOTE | 2020-05-21 05:45 | NUR ---
PT UP TO BSC WITH X1 ASSIST. PT IS A/OX3 WITH SOME CONFUSION, IN COMMENTS THAT ARE STRANGE IN NATURE. BM OVERNIGHT. VSS. FOLLOWING POC.
[2020-05-21 07:34] VITALS: BP 88/50
--- NOTE | 2020-05-21 12:35 | NUR ---
FAXED CLINICAL UPDATES TO [facility]. WILL CONFIRM THEY RECEIVED. [facility] [phone]; FAX [phone] [facility] FAX [phone]
[2020-05-21 12:40] LABS: BE(vivo) 5.8 mmol/L (-2 to +3); HCO3 32.5 mmol/L (22.0-26.0); PCO2 58.9 mmHg (35.0-45.0); PO2 59.2 mmHg (80.0-100.0); pH 7.359 (7.360-7.450)
--- NOTE | 2020-05-21 15:54 | NUR ---
TANVI reviewed chart and spoke with nursing and attending physician. Pt is on 5L of O2 and PO lasix. Pt is medically stable for discharge to post-acute care. shoe lay out planner faxed updated clinical and therapy notes to [facility]. Awaiting insurance authorization at this time. TANVI placed call to pt's room. No answer. TANVI spoke with pt's son, Jesse, via phone to provide update and discuss need for insurance auth for discharge. Pt's son verbalized understanding. TANVI is following to assist as needed with discharge planning.
[2020-05-21 16:10] VITALS: BP 94/66
--- NOTE | 2020-05-21 17:29 | NUR ---
ASSUMED PATIENT CARE AT 0700. A/O X3 WITH HALLUCINATION. NOTED PATIENT LETHARGIC AT NOON TIME. STAT ABG AND CXR ORDER. NOT WWWWTOWARDS POC GOALS. WILL KEEP MONITOR.
[2020-05-21 19:25] VITALS: BP 91/47
[2020-05-22 04:01] VITALS: BP 109/52
--- NOTE | 2020-05-22 06:15 | NUR ---
CONTINUES ON 5 LITERS N/C, KEEPING O2 SAT AT 95% WHILE RESTING. SHE WORE HER CPAP FOR ASHORT TIME TONIGHT. THEN NEEDED TO REST WITH THE N/C . SHE HAS BEEN UNABLE TO BE COMFORTABLE WITH THE CPAP TONIGHT.
[2020-05-22 07:52] VITALS: BP 62/40
--- NOTE | 2020-05-22 09:57 | NUR ---
SPOKE WITH SCAR [employer]ZARIO STOCKHOLDER THEY GAVE AUTH FOR PT TO DC TO [facility] APPROVED 05/21/20-05/23/20 THEY WILL REVIEW AUTH ID#[id number].
--- NOTE | 2020-05-22 11:02 | NUR ---
DISCHARGE NOTE: SW reviewed chart and spoke with nursing and attending physician. Insurance authorization obtained for pt to discharge to [facility] today. Wheelchair van transportation scheduled for 1400 per facility's arrangements. SW notified attending physician, who will complete the discharge orders/summary around noon. city planner to fax discharge ppwk and notify pt's family. Chart copy requested. Nursing to call report. No additional SW needs identified at this time, but is available to assist should needs arise. [facility]--
== END 2020-05-22 15:46 | DRG 329 ==
LOC: ER 09:57 → EROBS 13:31 → 3W 13:31 → EROBS 13:31 → 3W 15:23
PROVIDERS: Anesthesiology; Emergency Medicine; Internal Medicine Pulmonary Disease; Surgery; ADMIT Family Medicine; ATTEND Family Medicine
PROC: 5A09357 Assistance with Respiratory Ventilation, Less than 24 Consecutive Hours, Continuous Positive Airway Pressure (ICD-10-PCS; principal; 2020-05-13)
PROC: 5A09357 Assistance with Respiratory Ventilation, Less than 24 Consecutive Hours, Continuous Positive Airway Pressure (ICD-10-PCS; 2020-05-15)
PROC: 5A09357 Assistance with Respiratory Ventilation, Less than 24 Consecutive Hours, Continuous Positive Airway Pressure (ICD-10-PCS; 2020-05-16)
PROC: 0DNU4ZZ Release Omentum, Percutaneous Endoscopic Approach (ICD-10-PCS; 2020-05-16)
PROC: 0DTF4ZZ Resection of Right Large Intestine, Percutaneous Endoscopic Approach (ICD-10-PCS; 2020-05-16)
PROC: 5A09357 Assistance with Respiratory Ventilation, Less than 24 Consecutive Hours, Continuous Positive Airway Pressure (ICD-10-PCS; 2020-05-17)
PROC: 5A09357 Assistance with Respiratory Ventilation, Less than 24 Consecutive Hours, Continuous Positive Airway Pressure (ICD-10-PCS; 2020-05-18)
PROC: 5A09357 Assistance with Respiratory Ventilation, Less than 24 Consecutive Hours, Continuous Positive Airway Pressure (ICD-10-PCS; 2020-05-19)
PROC: 5A09357 Assistance with Respiratory Ventilation, Less than 24 Consecutive Hours, Continuous Positive Airway Pressure (ICD-10-PCS; 2020-05-20)
DX: D17.5 Benign lipomatous neoplasm of intra-abdominal organs (principal); I50.33 Acute on chronic diastolic (congestive) heart failure; J96.21 Acute and chronic respiratory failure with hypoxia; I48.92 Unspecified atrial flutter; E66.2 Morbid (severe) obesity with alveolar hypoventilation; Z68.42 Body mass index [BMI] 45.0-49.9, adult; D50.0 Iron deficiency anemia secondary to blood loss (chronic); K63.89 Other specified diseases of intestine; F31.9 Bipolar disorder, unspecified; E03.9 Hypothyroidism, unspecified; I11.0 Hypertensive heart disease with heart failure; K64.8 Other hemorrhoids; K38.9 Disease of appendix, unspecified; I48.0 Paroxysmal atrial fibrillation; I35.0 Nonrheumatic aortic (valve) stenosis; E87.5 Hyperkalemia; E87.70 Fluid overload, unspecified; R53.81 Other malaise; I49.5 Sick sinus syndrome; J44.9 Chronic obstructive pulmonary disease, unspecified; E87.6 Hypokalemia; I27.20 Pulmonary hypertension, unspecified; K57.30 Diverticulosis of large intestine without perforation or abscess without bleeding; Z20.822 Contact with and (suspected) exposure to COVID-19; Z87.891 Personal history of nicotine dependence; Z79.899 Other long term (current) drug therapy; Z95.0 Presence of cardiac pacemaker; Z98.84 Bariatric surgery status
CPT/HCPCS: 10879; 50010; 50093; 50101; 50386; 50455; 50525; 50555; 50558; 51489; 51708; 51712; 52265; 53307; 53310; 54022; 56525; 56526; 56529; 57092; 57108; 58115; 58574; 62110; 62900; 70005

== ENCOUNTER 2020-05-22 18:07 | Emergency (ER) | payer OTHER ==
[~2020-05-22] VITALS: Ht 149.9 cm; Wt 103.7 kg
--- NOTE | ~2020-05-22 | EMS ---
[address] [address] EMS Patient Care Report Name: GURDEEP GALLARDO Room #: REG BUTCH Wallace#: [id number] Admission: 05/22/20 Attend Phys: Discharge: Date of : 52 Report #: [id number] THIS REPORT FOR: //name// Report Transmitted: 05/22/2020 19:26 EMS Care Summary [facility] Incident [id number] @ 05/22/2020 17:20 Incident Location [address] [address] Patient GURDEEP GALLARDO Female, 70 Years 1950 Patient Address [address] [place] [address] Patient History Congestive Heart Failure (CHF), Patient Allergies No known allergies, Patient Medications Klor-Con, Prednisone, Metoprolol, Amiodarone, Lasix, Chief Complaint Altered Mental Status Disposition Transported No Lights/[place] Reason Unconscious/Fainting Transported To [facility] Narrative [id number] was dispatched to a code 1 unresponsive. M1145 responded with no delay. [address] [address] EMS Patient Care Report Name: GURDEEP GALLARDO Room #: REG Renata.#: [id number] Admission: 05/22/20 Attend Phys: Discharge: Date of : 52 Report #: [id number] On arrival M1145 found an elderly female sitting in her wheelchair slumped over. Pt was breathing and would look up when spoken to. Nursing staff reported that they found pt in this state approx 10-30 min before EMS arrival. Staff reports that pt was her normal self when she arrived back to the rehab facility from the hospital approx 3 hours before. Staff reports that they did a 12 lead and it showed a-fib and pt was hypotensive for them. Pt was then moved out to the hallway and moved over to the stretcher. Pt was then placed on the property assessment monitor. It was noted that pt oxygen saturations were in the upper 70s. Pt was on 5LPM NC on EMS arrival and pt was then switched over to a NRB when oxygen sats were noted to be low. Pt was then moved out to the ambulance. In the ambulance pt was maintaining oxygen sats in the 90s. A 12 lead was acquired and pt was placed on end tidal monitoring. While en route to the hospital a glucose was obtained and IV access was attempted without success. On arrival to the hospital pt appeared to be more responsive to things happening around her but was still not responding verbally or following commands. Pt was taken into the ER and care was transferred to Priscilla ALLAN. Initial Vitals @17:43P: 111,R: 21,BP: 183/115,EtCO2: 30,SpO2: 90, @17:39P: 105,R: 22,SpO2: 98,WI Suspected: false @17:31P: 116,R: 22,BP: 112/61,GCS: 10,Temp: 98.7F,SpO2: 74,Revised Trauma: 11, @17:52P: 119,R: 22,BP: 96/49,EtCO2: 34,SpO2: 95, @17:47P: 107,R: 23,BP: 102/68,GCS: 10,Glucose: 102,EtCO2: 43,SpO2: 92,Revised Trauma: 11, @17:54P: 118,R: 21,BP: 102/49,EtCO2: 40,SpO2: 99, Assessments @17:28MENTAL:Other,SKIN:Pale,HEENT:Head/Face: No Abnormalities,Neck/Airway: No Abnormalities,LUNG SOUNDS:Left Upper: Other,General: No Abnormalities,ABDOMEN:Left Upper: Other,General: No Abnormalities,PELVIS//GI:EXTREMITIES:PULSE:NEURO: Impression Acute Respiratory Distress (Dyspnea) Procedures @17:3912-Lead ECGResponse: UnchangedSucceeded@17:42Saline Lock 0cc (18 ga) Site: Antecubital-LeftResponse: UnchangedFailed@17:32Oxygen FlowRate: 15 Device: Non Re-breather Mask (NRB) Response: ImprovedSucceeded@17:28ALS AssessmentResponse: ImprovedSucceeded@17:32Surgical Mask on Patient Timeline 17:18,Call Received 17:18,Psap Call 17:20,Dispatched 17:20,En Route [address] [address] EMS Patient Care Report Name: GURDEEP GALLARDO Room #: REG BUTCH Wallace#: [id number] Admission: 05/22/20 Attend Phys: Discharge: Date of : 52 Report #: [id number] 17:22,On Scene 17:27,At Patient 17:28,ALS Assessment,Response: ImprovedSucceeded, 17:31,BP: 112/61 M,PULSE: 116,RR: 22 R,SPO2: 74 Ox,ETCO2: ,BG: ,PAIN: ,GCS: 10, 17:32,Oxygen FlowRate: 15 Device: Non Re-breather Mask (NRB) Response: ImprovedSucceeded, 17:32,Surgical Mask on Patient, 17:39,12-Lead ECG,Response: UnchangedSucceeded, 17:39,BP: / M,PULSE: 105,RR: 22 R,SPO2: 98 Ox,ETCO2: ,BG: ,PAIN: ,GCS: , 17:40,Depart Scene 17:42,Saline Lock 0cc 18 ga Site: Antecubital-Left,Response: UnchangedFailed, 17:43,BP: 183/115 M,PULSE: 111,RR: 21 R,SPO2: 90 Ox,ETCO2: 30 ,BG: ,PAIN: ,GCS: , 17:47,BP: 102/68 M,PULSE: 107,RR: 23 R,SPO2: 92 Ox,ETCO2: 43 ,B,PAIN: ,GCS: 10, 17:52,BP: 96/49 M,PULSE: 119,RR: 22 R,SPO2: 95 Ox,ETCO2: 34 ,BG: ,PAIN: ,GCS: , 17:54,BP: 102/49 M,PULSE: 118,RR: 21 R,SPO2: 99 Ox,ETCO2: 40 ,BG: ,PAIN: ,GCS: , 17:54,At Destination 18:16,Call Closed Disclaimer v1.1 Copyright 2020 [email or web address] This EMS Care Summary contains data elements from the applicable legal record (which may be displayed differently). It is designed to provide pertinent information for the following purposes: continuity of care, clinical quality, and state data reporting. The complete legal record is available to ED staff and administrators of the receiving hospital in [employer] Patient Tracker. All data is provided "as is."
[~2020-05-22 18:07] MED LIST changes: +DEPAKOTE ER500 M1 PO; +FLORANEX TABLE1 EACH PO; +KLOR-CON 1010 MEQ PO; +SLOW FE142 MG PO
[2020-05-22 18:20] LABS: BE(vivo) 7.3 mmol/L (-2 to +3); HCO3 33.5 mmol/L (22.0-26.0); PCO2 56.3 mmHg (35.0-45.0); PO2 143.8 mmHg (80.0-100.0); pH 7.392 (7.360-7.450); sO2 98.8 % (92.0-98.0)
[2020-05-22 19:09] LABS: HEMOGLOBIN 9.1 gm/dL (12.0-15.0); MCHC 31.4 g/dL (28.0-37.0); MCV 92.4 fL (80.0-100.0); PLATELET COUNT 174 thou/uL (150-400); RBC 3.14 mil/uL (4.20-5.00); RDW 26.9 % (10.5-14.5); WBC 3.3 thou/uL (4.0-11.0)
[2020-05-22 19:37] LABS: ABSOLUTE NEUTROPHILS 2.3 thou/uL (1.4-8.2); ANISOCYTOSIS 2+; HYPOCHROMASIA SLIGHT; MACROCYTES 1+; MICROCYTES 1+; PLATELET ESTIMATE NORMAL
[2020-05-22 19:41] LABS: CALCIUM 8.1 mg/dL (8.5-10.1); CREATININE 0.6 mg/dL (0.6-1.0); POTASSIUM 4.8 mmol/L (3.5-5.1)
[2020-05-22 19:46] LABS: ALBUMIN 2.1 g/dL (3.4-5.0); TOTAL BILIRUBIN 0.6 mg/dL (0.2-1.0); TOTAL PROTEIN 6.1 g/dL (6.4-8.2)
[2020-05-22 19:56] LABS: INR 1.1; PROTIME 12.1 Seconds (9.3-11.4)
[2020-05-22 22:17] VITALS: BP 113/57
--- NOTE | 2020-05-23 07:17 | EKG ---
[address] [address] [place] [address] ELECTROCARDIOGRAM REPORT Name: GURDEEP GALLARDO Room #: DEP [place]#: [id number] Admission: 05/22/20 Attend Phys: Discharge: 05/22/20 Date of : 52 Report #: [id number] [facility] ED Test Date: 2020-05-22 Test Time: 18:19:13 Pat Name: GURDEEP GALLARDO Department: Room: Gender: F Housing Management Officer: KF : 1950 Requested By: Timur Bundy Order Number: [id number] MD: Tramaine Ward Measurements Intervals [place] Rate: 117 P: AK: QRS: 29 QRSD: 89 T: 206 QT: 283 QTc: 395 Interpretive Statements Atrial fibrillation Low voltage, precordial leads RSR' in V1 or V2, right VCD or RVH Nonspecific repol abnormality, lateral leads Compared to ECG 05/17/2020 07:33:34 Right ventricular hypertrophy now present RSR' in V1 or V2 now present Early repolarization now present Ventricular-paced complex(es) or rhythm no longer present Electronically Signed On 05-23-2020 7:17:25 PRIVATE DUTY NURSE by Tramaine Ward [email or web address] <ELECTRONICALLY SIGNED> By: Tramaine Ward MD, FAC 05/23/20 07 18 18 Tramaine Ward MD, [facility] /EPI
--- NOTE | 2020-05-23 19:15 | HC ---
[facility] [place] [address] CONSULTATION Name: GURDEEP GALLARDO [id number] Admission: 05/22/20 Attend Phys: Discharge: 05/22/20 Date of : 52 Report #: [id number] THIS REPORT FOR: cc: Hosea Ahn MD, Christopher B. MD Khosla, Parveen K. MD ~ DATE OF SERVICE: 05/22/2020 HISTORY OF PRESENT ILLNESS: This is a 70-year-old female patient who was seen by me on the consult on Emergency Room physician. I first talked to Emergency Room physician on the phone and subsequently came and saw the patient in the Emergency Room. I could not see her initially because she was gone for a CT angio and perfusion and subsequently the IV was not proper and I cannot see her second time either because the IVs has to be corrected and finally I was able to see her. I talked to the patient's nurse looking after this patient. This patient has come to the hospital with what looks like acute onset of global aphasia and right hemiplegia. The last seen normal for this patient was around 3:30. When I talked to Emergency Room physician and asked them to look for any exclusion criteria and if no exclusion criteria is found, then consider TPA after talking to the family. When I came to the Emergency Room, he told me that this patient had an exclusion criteria because the patient had a surgery on the abdomen a few days ago and she had last dose of Lovenox this morning and therefore he did not give the patient TPA. I had asked them to get a CT angio and perfusion done if the BUN and creatinine is normal and that was already ordered in this patient. When I came to see this patient, further history was that this patient was on anticoagulation because of atrial fibrillation. It looks like she had a GI bleed and she had surgery and anticoagulation was held. This is from the record and this is the best I can tell because the record was reviewed in a hurry because of the acuity of the situation. When I saw this patient, this patient is completely aphasic. She is unable to provide any history at all. In fact, she has no verbal output. History is from the records. There are multiple diagnoses in this patient and those include atrial fibrillation, congestive heart failure, history of anemia, history of GI bleed, sick sinus syndrome with a pacemaker, hypothyroidism, COPD, and pulmonary hypertension. This is all from the records. PAST MEDICAL HISTORY: Positive for atrial fibrillation. FAMILY HISTORY: Unavailable from the patient. SOCIAL HISTORY: The patient has a son. I will try to reach him, but the Emergency Room physician has already talked to him. [facility] [address] [place] [address] CONSULTATION Name: GURDEEP GALLARDO Room #: DEP BUTCH Wallace#: [id number] Admission: 05/22/20 Attend Phys: Discharge: 05/22/20 Date of : 52 Report #: [id number] PHYSICAL EXAMINATION: Pretty limited. She is globally aphasic. She has a very dense preference towards the left side. She has no movements on the right side. On the left side, she moves, but does not move on command because she does not understand the command. She does not appear to be in respiratory distress. This is all the examination, which was possible in this patient. IMPRESSION: My impression in this patient was that this patient has a large left hemispheric cerebrovascular accident. This is most likely because of embolization. TPA was not given because of a recent surgery. The patient is being on loven and by the time I saw her, she was outside the window for TPA. I did not think pursuing the TPA in this patient was a good option because this patient needs a thrombectomy and multiple studies have indicated the prognosis is about the same, whether TPA is given or not, if the thrombectomy is done. With that surgery, I agree that the risk was pretty high and I agree with Emergency Room physician not to give the TPA in this patient. RECOMMENDATIONS: My recommendation to Emergency Room physician was to emergently transfer this patient to a facility where thrombectomy can be done and he indicated that he was already in the process of doing that. Thank you very much for this referral. Addendum. This addendum is being added at the time of signing this note. I had talked to the patient's son and the family was on the speaker phone as I understood from them. I had conveyed to them that this patient had a large clot. This is a very unfortunate situation. From our radiologist report it looks like the patient may have already stroked out but perfusion studies are not very good. Therefore it is very desirable to transfer this patient to higher level of care where the films can be reviewed by a neuroradiologist and an interventional radiologist and see what can be done. This patient had a large clot and unfortunately vast majority of these patients do not do well at all. What ever minor chance she has to get an reasonable quality of the life is by thrombectomy if that can be done. They were aware of the fact that we will be emergently transfer this patient to a facility where thrombectomy is available and they were agreeable with the plan. I encouraged them to call emergency room to get more information in this regard. I had called the emergency room physician again and stressed the importance of transferring her as soon as possible and he indicated that they are already working on that I spent more than 50 [facility] [address] [place] [address] CONSULTATION Name: GURDEEP GALLARDO Room #: DANIELA Wallace#: [id number] Admission: 05/22/20 Attend Phys: Discharge: 05/22/20 Date of : 52 Report #: [id number] minutes of time taking care of this patient and majority was spent counseling and coordinating <ELECTRONICALLY SIGNED> By: Gal Gamble MD 05/23/20 1915 2136 Gal Gamble MD /nt
== END 2020-05-22 22:19 | disposition short-term general hospital (02) ==
LOC: ER 18:07
PROVIDERS: Emergency Medicine; Internal Medicine
DX: I63.9 Cerebral infarction, unspecified (principal); I11.0 Hypertensive heart disease with heart failure; I50.9 Heart failure, unspecified; J44.9 Chronic obstructive pulmonary disease, unspecified; E03.9 Hypothyroidism, unspecified; I48.91 Unspecified atrial fibrillation; Z79.899 Other long term (current) drug therapy; Z87.891 Personal history of nicotine dependence